=== PATIENT | male | born 1965 | race American Indian/Alaskan Native ===

== ENCOUNTER 2019-01-27 03:38 | Emergency (ER) | payer OTHER ==
[2019-01-27 03:52] VITALS: BP 108/72
[2019-01-27] MEDS ORDERED: IBUPROFEN 600 MG TAB PO ONE (04:49)
[2019-01-27] MEDS ORDERED: ACETAMINOPHEN 325 MG TAB PO ONE (04:50)
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
== END 2019-01-27 05:50 | disposition home or self-care (01) ==
LOC: ED 03:38
DX: M62.838 Other muscle spasm (principal); Z87.891 Personal history of nicotine dependence; V49.49XA Driver injured in collision with other motor vehicles in traffic accident, initial encounter; Y93.89 Activity, other specified; Y92.410 Unspecified street and highway as the place of occurrence of the external cause; Y99.8 Other external cause status
CPT/HCPCS: 72040

== ENCOUNTER 2020-10-12 08:09 | Inpatient (IN) | payer MEDICARE, OTHER ==
--- NOTE | 2020-10-12 08:33 | Emergency Department Report ---
ED General Adult HPI - General Chief complaint: Pain General Stated complaint: Having neck pain, and arm weakness PUI?: No Time Seen by Provider: 10/12/20 08:20 Source: patient, EMS (My EMS discussed), RN notes reviewed Mode of arrival: Stretcher Limitations: Physical Limitation - History of Present Illness Initial comments: The patient is a 75-year-old gentleman. He is not known to myself previously. He has a history of hypertension. He is brought to the hospital by emergency medical services with a complaint of neck spasms, arm spasms, and arm weakness. There is no trauma. He denies headache, abdominal pain, vomiting, diarrhea, and dysuria. He states he is right-hand dominant. He states he lives at home. He reports that he is typically ambulatory without difficulty. He reports that he has been essentially bedbound since Wednesday. He has bilateral upper extremity weakness, spasming, and paracervical neck pain. The patient reports no IV drug use. The patient reports no bladder or bowel retention/incontinence. The patient reports he has basically been staying in bed since Wednesday, and can get himself to the bathroom with great difficulty, leaning up against the wall. No abdominal pain. No IV drug use. No bladder or bowel retention or incontinence, no saddle anesthesia. He has chronic paralumbar back pain. He does not really have any immediate thoracic back pain at this time. -: Gradual, days(s) Location: neck, left, right, upper extremity Consistency: constant Improves with: none Worsens with: none - Related Data Previous Rx's Medication Instructions Recorded Last Taken Type Cyclobenzaprine [Flexeril] 10 mg PO Q8H PRN #15 tablet 01/27/19 Unknown Rx Ibuprofen [Motrin] 600 mg PO Q8H PRN #24 tablet 01/27/19 Unknown Rx Allergies Allergy/AdvReac Type Severity Reaction Status Date / Time No Known Allergies Allergy Unverified 01/27/19 03:48 ED Review of Systems ROS: Stated complaint: BACK SPASMS Other details as noted in HPI Constitutional: other (Denies loss of taste and smell). denies: fever Eyes: denies: eye discharge ENT: denies: epistaxis Respiratory: denies: cough Cardiovascular: denies: chest pain Gastrointestinal: denies: abdominal pain Genitourinary: denies: dysuria Musculoskeletal: back pain, myalgia Neurological: weakness, numbness, abnormal gait ED Past Medical Hx - Social History Smoking Status: Former Smoker - Medications Home Medications: Home Medications Medication Instructions Recorded Confirmed Last Taken Type Cyclobenzaprine [Flexeril] 10 mg PO Q8H PRN #15 tablet 01/27/19 Unknown Rx Ibuprofen [Motrin] 600 mg PO Q8H PRN #24 tablet 01/27/19 Unknown Rx ED Physical Exam - General Limitations: Physical Limitation General appearance: alert, in no apparent distress, obese - Head Head exam: Present: atraumatic, normocephalic - Eye Eye exam: Present: normal appearance, EOMI. Absent: nystagmus - ENT ENT exam: Present: normal exam, normal orophraynx, mucous membranes moist, normal external ear exam - Neck Neck exam: Present: normal inspection. Absent: meningismus, lymphadenopathy, thyromegaly - Respiratory Respiratory exam: Present: normal lung sounds bilaterally. Absent: respiratory distress, wheezes, rales, rhonchi, stridor, decreased breath sounds - Cardiovascular Cardiovascular Exam: Present: regular rate, normal rhythm, normal heart sounds. Absent: bradycardia, tachycardia, irregular rhythm, systolic murmur, diastolic murmur, rubs, gallop - GI/Abdominal GI/Abdominal exam: Present: soft. Absent: distended, tenderness, guarding, rebound, rigid, pulsatile mass - Rectal Rectal exam: Present: normal inspection, decreased rectal tone, other (Chaperoned by nurse Renetta Ernandez). Absent: heme (-) stool, heme (+) stool - Extremities Exam Extremities exam: Present: normal inspection, other (2+ pulses noted in the bilateral upper and lower extremities. There is no palpable cord. negative Homans sign. Muscular compartments are soft. The pelvis is stable.). Absent: tenderness, calf tenderness - Back Exam Back exam: Present: normal inspection. Absent: tenderness, CVA tenderness (R), CVA tenderness (L), paraspinal tenderness - Neurological Exam Neurological exam: Present: alert, motor sensory deficit (There is no facial droop. The tongue is midline. Extraocular movements are intact bilaterally. There is 3 out of 5 strength in the bilateral upper extremities. There is 4 out of 5 strength in the bilateral lower extremities). Absent: reflexes normal (Decreased plantar reflexes bilaterally. Patient is hyperreflexic in the bilateral quadriceps, triceps, biceps, and brachioradialis.) - Psychiatric Psychiatric exam: Present: anxious - Skin Skin exam: Present: warm, dry, intact, normal color. Absent: rash ED Course Vital Signs 10/12/20 10/12/20 10/12/20 09:03 09:16 09:25 Temperature 98.8 F Pulse Rate 86 86 Respiratory 29 H 25 H Rate Blood Pressure 151/76 Blood Pressure 151/76 [Left] O2 Sat by Pulse 93 98 97 Oximetry 10/12/20 10/12/20 10/12/20 09:30 09:52 10:00 Temperature Pulse Rate 84 97 H 83 Respiratory 23 20 25 H Rate Blood Pressure 151/76 151/76 151/76 Blood Pressure [Left] O2 Sat by Pulse 97 Oximetry 10/12/20 10/12/20 10/12/20 10:06 10:16 10:30 Temperature Pulse Rate 81 73 Respiratory 18 20 21 Rate Blood Pressure 151/76 Blood Pressure [Left] O2 Sat by Pulse Oximetry 10/12/20 10/12/20 10/12/20 11:00 12:18 12:28 Temperature Pulse Rate Respiratory 20 18 Rate Blood Pressure Blood Pressure [Left] O2 Sat by Pulse 95 Oximetry 10/12/20 10/12/20 10/12/20 12:30 12:46 13:00 Temperature Pulse Rate 77 73 78 Respiratory 21 19 17 Rate Blood Pressure 162/71 162/71 147/81 Blood Pressure [Left] O2 Sat by Pulse 91 97 98 Oximetry 10/12/20 10/12/20 10/12/20 13:16 13:30 13:46 Temperature Pulse Rate 77 82 78 Respiratory 20 24 20 Rate Blood Pressure 147/81 147/81 147/81 Blood Pressure [Left] O2 Sat by Pulse 94 98 97 Oximetry 10/12/20 10/12/20 10/12/20 13:56 14:32 14:46 Temperature Pulse Rate 99 H Respiratory 18 18 Rate Blood Pressure 147/81 143/84 Blood Pressure [Left] O2 Sat by Pulse 96 92 93 Oximetry 10/12/20 15:00 Temperature Pulse Rate 81 Respiratory 21 Rate Blood Pressure 147/81 Blood Pressure [Left] O2 Sat by Pulse 95 Oximetry - Reevaluation(s) Reevaluation #1: 10/12/20 09:40 Differential diagnosis, including but not limited to: Stroke, cervical cord lesion, myelopathy Assessment and plan: 75-year-old gentleman, with a complaint of neck pain, and arm weakness without fever, with lax rectal tone, hyperreflexia, and mute plantar reflexes. Have emergently requested [place] cervical collar, and spinal immobilization. There is no history of trauma. Have requested emergent CT scan of the brain, CT and L-spine. Have had an emergent neurology consultation, with Dr. Sobeida Coyne. She has examined this patient. She agrees with the aforementioned, and also recommends emergent MRI brain, and C-spine, with and without contrast. We will hold aspirin at this time, and hold steroids at this time. Reassess after MRIs have been resulted. Please note there was a delay in acquisition of MRI, as the sand technician is risk control field representative. It required multiple phone calls, with multiple individuals, to get the sand technician to come in, as I called her up, and she did not answer. In addition, the filling operator called this individual up, and did not answer. This was escalated to Kadeem, dye house supervisor, who in turn escalated to Mr. Tristen Bear, director utilization management. In addition, I contacted our director of physician services, Mr. Rory Mercado, who is also escalated this appropriately. At the moment, awaiting acquisition of CT scan, and an MRI. 10/12/20 11:08 CT scan brain reviewed and appreciated. CT scan cervical spine demonstrates a lytic lesion at C3. CT T and L-spine negative for acute findings. Patient is now an MRI. Contacted neurosurgeon on-call, Dr. Elizondo. Have discussed the patient's history, physical, laboratory studies, imaging studies, and overall clinical impression. He advises that the neurosurgery group can follow in consultation. Advises that emergency radiation therapy not necessary at this time. Recommends Decadron, 4 mg, every 6 hours, every hour neuro checks, triaged to the ICU. Also request additional MRI T and L-spine. Is in agreement with [place] collar. Neurosurgery will follow in consultation. Lung mass and probable malignancy are reviewed and appreciated. Defer to inpatient team to further evaluate and manage. Awaiting callback from critical care physician to arrange placement to the intensive care unit. 10/12/20 11:[address] angiogram head, CT angiogram neck. We will obtain this, and to facilitate and assist with patient's metastatic work-up, we will obtain CT scan of the chest, abdomen, pelvis with IV contrast. Contacted and discussed with critical care physician on-call, Dr. Mane Have discussed the patient's history, physical, laboratory studies, imaging studies, and overall clinical impression. He is in agreement with the plan of care. He will place into the intensive care unit and follow along. We will discussed with hospital physician to arrange admission. 10/12/20 11:16 10/12/20 12:00 Dr. Monahan to admit patient to the medical service. ED Medical Decision Making - Lab Data Result diagrams: 10/12/20 08:37 10/12/20 08:37 Vital Signs 10/12/20 09:25 Temperature 98.8 F Pulse Rate 86 Respiratory 25 H Rate Blood Pressure 151/76 [Left] O2 Sat by Pulse 97 Oximetry Lab Results 10/12/20 10/12/20 10/12/20 Range/Units 08:37 08:37 08:37 WBC 9.2 (4.5-11.0) K/mm3 RBC 4.74 (3.65-5.03) M/mm3 Hgb 14.2 (11.8-15.2) gm/dl Hct 41.1 (35.5-45.6) % MCV 87 (84-94) fl MCH 30 (28-32) pg MCHC 35 H (32-34) % RDW 14.5 (13.2-15.2) % Plt Count 254 (140-440) K/mm3 Lymph % (Auto) 13.0 L (13.4-35.0) % [place] % (Auto) 6.3 (0.0-7.3) % Eos % (Auto) 0.8 (0.0-4.3) % Baso % (Auto) 0.8 (0.0-1.8) % Lymph # (Auto) 1.2 (1.2-5.4) K/mm3 [place] # (Auto) 0.6 (0.0-0.8) K/mm3 Eos # (Auto) 0.1 (0.0-0.4) K/mm3 Baso # (Auto) 0.1 (0.0-0.1) K/mm3 Seg Neutrophils % 79.1 H (40.0-70.0) % Seg Neutrophils # 7.3 (1.8-7.7) K/mm3 PT 13.6 (12.2-14.9) Sec. INR 0.98 (0.87-1.13) APTT 26.2 (24.2-36.6) Sec. Sodium 138 (137-145) mmol/L Potassium 3.7 (3.6-5.0) mmol/L Chloride 102.1 (98-107) mmol/L Carbon Dioxide 21 L (22-30) mmol/L Anion Gap 19 mmol/L BUN 19 (9-20) mg/dL Creatinine 0.6 L (0.8-1.3) mg/dL Estimated GFR > 60 ml/min BUN/Creatinine Ratio 32 % Glucose 105 H (75-100) mg/dL Calcium 10.1 (8.4-10.2) mg/dL Magnesium 2.00 (1.7-2.3) mg/dL Total Creatine Kinase 192 H (55-170) units/L - EKG Data -: EKG Interpreted by In EKG shows normal: sinus rhythm Rate: normal - EKG Data 10/12/20 11:59 Sinus rhythm, 81 bpm. Left axis deviation, normal P wave axis, left ventricular hypertrophy, QTC, left anterior fascicular block. This EKG is not a STEMI - Radiology Data Radiology results: report reviewed, image reviewed CT cervical spine wo con INDICATION: neck pain arm weakness. TECHNIQUE: Axial CT images of the cervical spine were obtained. Sagittal and coronal reformatted images were produced. All CT scans at this location are performed using CT dose reduction for ALARA by means of automated exposure control. COMPARISON: None available. FINDINGS: ALIGNMENT: Normal alignment. VERTEBRAE: Lytic lesion involving the C3 vertebral body with near complete destruction of the posterior elements. The lesion also extends into the right inferior C2 articular pillar. SPONDYLOSIS: Multilevel mild spondylosis. SOFT TISSUES: No significant soft tissue abnormality. ADDITIONAL FINDINGS: Right middle lung zone 3 cm mass seen on manager night imaging. Linear parenchymal opacities are seen within the apical segments lungs mild paraseptal emphysema. I MPRESSION: 1. There is a lytic lesion involving the C3 vertebral body, posterior elements, and right C2 articulating process which most likely represents a metastasis. On manager night imaging, there is a 3 cm right middle lung zone lung mass concerning for primary lung cancer. Recommend CT of the chest with contrast for further evaluation. Signer Name: Abhijit Cuba MD Signed: 10/12/2020 9:16 AM Workstation Name: [id number] CT head/brain wo con INDICATION: arm weakness b/l. TECHNIQUE: Routine CT head. All CT scans at this location are performed using CT dose reduction for ALARA by means of automated exposure control. COMPARISON: None. FINDINGS: Intracranial: Small encephalomalacia in the right marinelli radiata from remote infarction. Corely-white matter differentiation is maintained. No intracranial hemorrhage. No extra axial collection. No hydrocephalus. No herniation. Sinuses: Paranasal sinuses and mastoid air cells are essentially clear. Orbits: Globes are intact. Calvarium: No acute fracture. IMPRESSION: 1. No acute intracranial abnormality. Signer Name: Abhijit Cuba MD Signed: 10/12/2020 9:01 AM Workstation Name: [id number] CT thoracic spine wo con, CT lumbar spine wo con INDICATION / CLINICAL INFORMATION: arm weakness b/l. TECHNIQUE: Axial, coronal and sagittal images All CT scans at this location are performed using CT dose reduction for ALARA by means of automated exposure control. COMPARISON: None available. FINDINGS: CT thoracic spine The thoracic spine alignment appears normal. Facets appear well aligned throughout. There are endplate changes at several levels throughout spin e. There is a mass within the right lung measuring at least 3.7 cm. No subluxation is identified. Mild curvature the spine is noted. CT lumbar spine: Alignment appears normal. No subluxation is seen. Mild endplate changes with disc osteophytes at several levels. Sacrum and sacroiliac joints appear normal. No loss of vertebral body height. IMPRESSION: 1. Large mass within the right lung concerning for carcinoma. Further workup for malignancy is recommended. 2. No acute fracture in the thorac ic spine or lumbar spine. Degenerative changes seen throughout. If there is concern for radiculopathy and weakness and MRI would be better for evaluation. Signer Name: Chito Keller MD Signed: 10/12/2020 9:40 AM Workstation Name: [id number] MR brain wo con INDICATION / CLINICAL INFORMATION: arm weakness nmbness. TECHNIQUE: Multiplanar, multisequence MR images of the brain were obtained. C OMPARISON: None available. FINDINGS: INTRACRANIAL: Small area of encephalomalacia from remote right marinelli radiata infarction. Wallerian degeneration extending into the right peggy cerebri. No restricted diffusion. No hemorrhage. Ventricular caliber is normal. No extra-axial collection. No mass. No herniation. Major intracranial vascular flow voids are preserved. Posterior incidental subgaleal lipoma. ORBITS: No significant abnormality of visualized orbits. SINUSES / MASTOIDS: No significant abnormality of visualized sinuses and mastoid air cells. ADDITIONAL FINDINGS: None. IMPRESSION: 1. No acute intracranial abnormality. 2. Remote right marinelli radiata infarction as above. Signer Name: Abhijit Cuba MD Signed: 10/12/2020 1:45 PM Workstation Name: [id number] CT CHEST WITH CONTRAST INDICATION / CLINICAL INFORMATION: neck pain, cervical lesion. TECHNIQUE: Axial CT images were obtained through the chest after IV contrast. All CT scans at this location are performed using CT dose reduction for ALARA by means of automated exposure control. COMPARISON: None available. FINDINGS: There is a right upper lung mass measuring 4.0 x 2.8 cm. Mild atelectasis in the dependent portions of the lungs. There are prominent right hilar and paratracheal nodes. A right hilar node measures 1.8 cm. Heart appears normal. Visualized portions of the upper abdomen appear normal. Small axillary n odes. No acute bone findings are seen. IMPRESSION: 1. Large mass in the right upper lung with associated right hilar and paratracheal adenopathy. Findings concerning for malignancy/adenocarcinoma with metastatic farrah spread. Biopsy and follow-up recommended. Signer Name: Chito Keller MD Signed: 10/12/2020 1:44 PM Workstation Name: [email or web address] MR cervical spine wo con INDICATION / CLINICAL INFORMATION: arm weakness nmbness. TECHNIQUE: Multisequence, multiplanar images of the cervical spine were obtained. COMPARISON: None available. FINDINGS: Please note that the patient refused contrast because the patient was in too much pain and could not tolerate anymore.. ALIGNMENT: Normal alignment. VERTEBRAE:There is a mass seen involving the C3 vertebral body which is extending into and expanding the posterior elements. The mass demonstrates cortical breakthrough and extends into the right C2 articulating pillar. There is epidural extension completely effacing the CSF space resulting in severe spinal canal stenosis with cord compression. Severe foraminal narrowing is also present. Short segment of abnormal cord signal is present at this level which could be related to edema or myelomalacia. SPINAL CORD: See above. SPONDYLOSIS: Spondylosis with foraminal narrowing at C4-C5, C5-C6, and C6-C7. There is a left subarticular C7-T1 protrusion resulting in left moderate to severe left foraminal narrowing, can correlate for left C8 nerve root symptoms. PARASPINAL SOFT TISSUES: No significant abnormality. ADDITIONAL FINDINGS: None. IMPRESSION: 1. C3 mass involving the posterior elements demonstrates cortical breakthrough with severe spinal canal stenosis and cord compression. Small short segment of abnormal cord signal could be related to edema or myelomalacia. There is also involvement of the right C2 articulating pillar. This is most likely related to metastasis given the known right upper lobe mass. CERVICAL GRADING DEFINITIONS FOR THE PURPOSES OF THIS REPORT: Cervical canal stenosis: No stenosis: No significant attenuation of the CSF spaces Mild stenosis: Attenuation or effacement of the ventral CSF Moderate stenosis: Effacement of both the ventral and dorsal CSF, cord flattening, but some CSF remaining Severe stenosis: Effacement of all CSF, cord compression Cervical neural foraminal stenosis (Taniya et al. Portuguese J Radiol. 2015 Jan-Feb;16(6):1294- 302): No stenosis: No attenuation of the fat in the foramen Mild stenosis: Narrowest point of the foramen is larger than the extraforaminal nerve Moderate stenosis: Narrowest point of the foramen remains greater than 50% of the caliber of the extraforaminal nerve Severe stenosis: Narrowest point of the foramen is less than 50% of the caliber of the extraforaminal nerve Signer Name: Abhijit Cuba MD Signed: 10/12/2020 2:08 PM Workstation Name: [id number] CT angio head HISTORY: Cervical spine myelopathy, metastatic disease COMPARISON: None. TECHNIQUE: CTA of the head is performed after IV contrast. 3- D/MIP reformats were postprocessed. Percentage stenosis is determined by direct quantitative measurements of diseased internal carotid artery diameter compared with normal distal internal carotid artery reference segments or by criteria similar to NASCET where applicable. All CT scans at this location are performed using CT dose reduction for ALARA by means of automated exposure control. FINDINGS: CTA HEAD: Intracranial internal carotid arteries: No occlusion or significant stenosis. Anterior cerebral arteries: No occlusion or significant stenosis. Middle cerebral arteries: No occlusion or significant stenosis. Intracranial vertebral arteries: No occlusion or significant stenosis. Basilar artery: No occlusion or significant stenosis. Posterior cerebral arteries: No occlusion or significant stenosis. No aneurysm. Additional findings: Remote right marinelli radiata infarction. IMPRESSION: 1. CTA HEAD: No occlusion or significant stenosis of the major i ntracranial vasculature. Signer Name: Abhijit Cuba MD Signed: 10/12/2020 1:59 PM Workstation Name: [id number] CT ABDOMEN AND PELVIS WITH CONTRAST HISTORY: neck pain, cervical lesion ABD PAIN. COMPARISON: None. TECHNIQUE: CT images of the abdomen and pelvis were obtained following administration of intravenous contrast. All CT scans at this location are performed using CT dose reduction for ALARA by means of automated exposure control. CONTRAST: 100 ml of intravenous contrast administered. FINDINGS: Abdomen/pelvis: The liver, spleen, adrenal glands, pancreas, gallbladder appear normal. Portal vein is patent. Bilateral kidneys appear normal. Small right renal cyst. Urinary bladder is distended. No dominant adenopathy. Bowel loops appear normal. No bowel obstruction is seen. Degener ative changes seen throughout spine IMPRESSION: No acute findings are seen in the abdomen or pelvis. Signer Name: Chito Keller MD Signed: 10/12/2020 1:53 PM Workstation Name: [id number] HISTORY: neck pain, cervical lesion OMNIPAQUE 350 100ML COMPARISON: None. TECHNIQUE: Routine CTA of the neck is performed. 3-D/MIP reformats were postprocessed. Percentage stenosis is determined by direct quantitative measurements of diseased internal carotid artery diameter compared with normal distal internal carotid artery reference segments or by criteria similar to NASCET where applicable. All CT scans at this location are performed using CT dose reduction for ALARA by means of automated exposure control. FINDINGS: Aortic arch: No significant abnormality. Cervical vertebral arteries: The mass breaks through the cortex at the C3 level and abuts the bilateral vertebral arteries in the transverse foramen. This results in moderate stenosis from external compression on the left vert ebral artery. The right vertebral artery is diminutive but there is no occlusion or significant stenosis. Common Carotid arteries: No occlusion or hemodynamically significant stenosis. Internal carotid arteries: No occlusion or hemodynamically significant stenosis. Additional findings: 3.6 cm inc ompletely visualized right upper lobe mass. There is a mass seen involving the C3 vertebral bodies which is expanding the posterior elements. Cortical breakthrough with epidural extension and moderate to severe spinal canal stenosis. There is also involvement of the right C2 articular pillar as prev iously described on CT cervical spine. IMPRESSION: 1. Lesion involving the C3 vertebrae with cortical breakthrough and epidural extension resulting in moderate to severe spinal canal stenosis. The mass abuts the bilateral vertebral arteries in the transverse foramen at the C3 resulting in moderate stenosis of the left vertebral artery. The right vertebral artery is diminutive but there is no occlusion or significant stenosis. 2. Right upper lobe mass. Recommend CT chest with contrast. Signer Name: Abhiijt Cuba MD Signed: 10/12/2020 1:[address] CHEST WITH CONTRAST INDICATION / CLINICAL INFORMATION: neck pain, cervical lesion. TECHNIQUE: Axial CT images were obtained through the chest after IV contrast. All CT scans at this location are performed using CT dose reduction for ALARA by means of automated exposure control. COMPARISON: None available. FINDINGS: There is a right upper lung mass measuring 4.0 x 2.8 cm. Mild atelectasis in the dependent portions of the lungs. There are prominent right hilar and paratracheal nodes. A right hilar node measures 1.8 cm. Heart appears normal. Visualized portions of the upper abdomen appear normal. Small axillary nodes. No acute bone findings are seen. IMPRESSION: 1. Large mass in the right upper lung with associated right hilar and paratracheal adenopathy. Findings concerning for malignancy/adenocarcinoma with metastatic farrah spread. Biopsy and follow-up recommended. Signer Name: Chito Keller MD Signed: 10/12/2020 1:44 PM Critical Care Time: Yes Critical care time in (mins) excluding proc time.: 65 Critical care attestation.: If time is entered above; I have spent that time in minutes in the direct care of this critically ill patient, excluding procedure time. ED Disposition Clinical Impression: Mass of right lung, Lesion of bone of cervical spine, Upper extremity weakness, Cervical pain (neck) Disposition: OP ADMIT IP TO THIS HOSP Is pt being admited?: Yes Does the pt Need Aspirin: No Condition: Critical
[2020-10-12] MEDS ORDERED: LACTATED RINGERS 1,000 ML IV ONE (08:34)
[2020-10-12 08:52] LABS: Basophils # (Auto) 0.1 K/mm3 (0.0-0.1); Basophils % (Auto) 0.8 % (0.0-1.8); Eosinophils # (Auto) 0.1 K/mm3 (0.0-0.4); Eosinophils % (Auto) 0.8 % (0.0-4.3); Hematocrit 41.1 % (35.5-45.6); Hemoglobin 14.2 gm/dl (11.8-15.2); Lymphocytes # (Auto) 1.2 K/mm3 (1.2-5.4); Mean Corpuscular HGB Conc 35 % (32-34); Mean Corpuscular Volume 87 fl (84-94); Monocytes # (Auto) 0.6 K/mm3 (0.0-0.8); Monocytes % (Auto) 6.3 % (0.0-7.3); Platelet Count 254 K/mm3 (140-440); Red Blood Count 4.74 M/mm3 (3.65-5.03); Red Cell Distribution Width 14.5 % (13.2-15.2)
[2020-10-12 09:14] LABS: Blood Urea Nitrogen 19 mg/dL (9-20); Calcium 10.1 mg/dL (8.4-10.2); Hemolysis Index 3
[2020-10-12 09:15] LABS: BUN/Creatinine Ratio 32
[2020-10-12 09:25] LABS: INR 0.98 (0.87-1.13); Partial Thromboplastin Time 26.2 Sec. (24.2-36.6)
--- NOTE | 2020-10-12 10:05 | Cat Scan Report ---
CT head/brain wo con INDICATION: arm weakness b/l. TECHNIQUE: Routine CT head. All CT scans at this location are performed using CT dose reduction for A EMANI by means of automated exposure control. COMPARISON: None. FINDINGS: Intracranial: Small encephalomalacia in the right marinelli radiata from remote infarction. Corley-white m atter differentiation is maintained. No intracranial hemorrhage. No extra axial collection. No hydroc ephalus. No herniation. Sinuses: Paranasal sinuses and mastoid air cells are essentially clear. Orbits: Globes are intact. Calvarium: No acute fracture. IMPRESSION: 1. No acute intracranial abnormality. Signer Name: Abhijit Cuba MD Signed: 10/12/2020 10:01 AM Workstation Name: [id number]
[2020-10-12] MEDS: fentaNYL 100 MCG/2 ML INJ IV ONE ×4 (10:06→12:18)
--- NOTE | 2020-10-12 10:20 | Cat Scan Report ---
CT cervical spine wo con INDICATION: neck pain arm weakness. TECHNIQUE: Axial CT images of the cervical spine were obtained. Sagittal and coronal reformatted images were pro duced. All CT scans at this location are performed using CT dose reduction for ALARA by means of auto mated exposure control. COMPARISON: None available. FINDINGS: ALIGNMENT: Normal alignment. VERTEBRAE: Lytic lesion involving the C3 vertebral body with near complete destruction of the posteri or elements. The lesion also extends into the right inferior C2 articular pillar. SPONDYLOSIS: Multilevel mild spondylosis. SOFT TISSUES: No significant soft tissue abnormality. ADDITIONAL FINDINGS: Right middle lung zone 3 cm mass seen on glass fitter imaging. Linear parenchymal opaci ties are seen within the apical segments lungs mild paraseptal emphysema. IMPRESSION: 1. There is a lytic lesion involving the C3 vertebral body, posterior elements, and right C2 articula ting process which most likely represents a metastasis. On glass fitter imaging, there is a 3 cm right middl e lung zone lung mass concerning for primary lung cancer. Recommend CT of the chest with contrast for further evaluation. Signer Name: Abhijit Cuba MD Signed: 10/12/2020 10:16 AM Workstation Name: [id number]
--- NOTE | 2020-10-12 10:28 | Emergency Department Report ---
Blank Doc - Documentation Documentation: [facility] Consult Note # Demographics Consult Type: General Neurology Patient Location: Emergency Room First Name: Yunier Last Name: Christine Date of : 1965 Age: 55 Gender: Male Time of Initial Page (Eastern Time): 10/12/2020, 08:49 Time of Return Call (Eastern Time): 10/12/2020, 08:49 # HPI History: 55yo M presents with neck pain and tingling. has hyperreflexia, poor rectal tone. has had difficulty ambulating since morning. He is feeling bilateral hands feeling numbness. his left leg started and then his right leg first, then feeling arm weakness. he reports neck pain for many months. # Exam Mental Status: awake alert and oriented x 3 follows commands Language: normal speech Cranial Nerves: normal Motor: normal strength drift in all 4 extrmities Sensory: reduced sensation in right arm compared to the left, LE probably symmetric Cerebellar: ataxic in all 4 extremities # PMH-FH-SH Past Medical History: obese # Assessment Impression: likely cervical myelopathy. peripehral causes less likely but possible. C-spine or above should be the localization for central causes given arm involvement # Plan Imaging: (urgency: STAT): MRI Brain with AND without contrast MRI C spine Therapy/Evaluation: NPO until swallow evaluation PT/OT evaluation speech/swallow consultation Other: I have discussed my recommendations with the referring provider Additional Recommendations: if MRIs unrevealing in person neuro eval and EMG would be recommended # Logistics Telemedicine: Interactive 2 way audio and visual telecommunication technology was utilized during this visit
--- NOTE | 2020-10-12 10:45 | Cat Scan Report ---
CT thoracic spine wo con, CT lumbar spine wo con INDICATION / CLINICAL INFORMATION: arm weakness b/l. TECHNIQUE: Axial, coronal and sagittal images All CT scans at this location are performed using CT dose reductio n for ALARA by means of automated exposure control. COMPARISON: None available. FINDINGS: CT thoracic spine The thoracic spine alignment appears normal. Facets appear well aligned throughout. There are endplat e changes at several levels throughout spine. There is a mass within the right lung measuring at leas t 3.7 cm. No subluxation is identified. Mild curvature the spine is noted. CT lumbar spine: Alignment appears normal. No subluxation is seen. Mild endplate changes with disc osteophytes at ernie ral levels. Sacrum and sacroiliac joints appear normal. No loss of vertebral body height. IMPRESSION: 1. Large mass within the right lung concerning for carcinoma. Further workup for malignancy is recomm ended. 2. No acute fracture in the thoracic spine or lumbar spine. Degenerative changes seen throughout. If there is concern for radiculopathy and weakness and MRI would be better for evaluation. Signer Name: Chito Keller MD Signed: 10/12/2020 10:40 AM Workstation Name: [id number]
[2020-10-12] MEDS ORDERED: dexAMETHasone 4 MG/ML VIAL IV ONE (10:49)
[2020-10-12] MEDS ORDERED: MORPHINE 4 MG/1 ML INJ IV ONE (10:51)
[2020-10-12] MEDS ORDERED: LACTATED RINGERS 500 ML IV ONE (11:15)
--- NOTE | 2020-10-12 12:35 | History and Physical Report ---
History of Present Illness Chief complaint: My back hurts and I cannot walk History of present illness: 75 YO Male with HTN presents to ED for evaluation. Pt reports " I am hurting and I cannot walk". Patient states that he has experienced generalized weakness over the past 2 weeks with acutely worsening symptoms over the past 3 days. Patient reports he has experienced bilateral upper extremity muscle spasms, neck pain. Patient states that he is unable to hold objects in either hand and is unable to care for himself. Patient is currently bedbound, nonambulatory. Patient requires 6/6 assistance with activities of daily living and has a palliative performance score 30%. Patient underwent CT scan of the chest and was found to have a right lung lesion suspected to be a right lung malignancy With suspected metastatic disease to the spine complicated by cord compression syndrome. Total neurology team consulted, neurosurgery consulted, critical care team consulted in the emergency department. Patient admitted to ICU due to increased risk of worsening symptoms. Patient treated with IV steroid therapy, supportive care. Patient denies fever, chills, chest pain, palpitation, productive cough, skin rash, recent ill contacts, known exposure to COVID-19. No prior admission for review. All medication listed at time of admission has been reconciled. Advanced care planning conducted in ED. Past History Past Medical History: hypertension, other (See HPI) Past Surgical History: No surgical history, Other (Reviewed) Social history: , lives with family. denies: smoking, alcohol abuse, prescription drug abuse Family history: hypertension Medications and Allergies Allergies Allergy/AdvReac Type Severity Reaction Status Date / Time No Known Allergies Allergy Unverified 01/27/19 03:48 Home Medications Medication Instructions Recorded Confirmed Last Taken Type Cyclobenzaprine [Flexeril] 10 mg PO Q8H PRN #15 tablet 01/27/19 Unknown Rx Ibuprofen [Motrin] 600 mg PO Q8H PRN #24 tablet 01/27/19 Unknown Rx Review of Systems Constitutional: weakness, malaise, no weight gain, no fever, no chills Ears, nose, mouth and throat: no ear pain, no ear discharge, no decreased hearing, no nose pain, no nasal discharge, no sinus pressure Cardiovascular: no chest pain, no orthopnea, no lightheadedness Respiratory: no cough, no excessive sputum, no hemoptysis, no shortness of breath Gastrointestinal: no abdominal pain, no nausea, no diarrhea, no constipation, no hematemesis Genitourinary Male: no hematuria, no flank pain, no discharge, no urinary hesitancy, no nocturia Rectal: no pain, no incontinence, no bleeding Musculoskeletal: shooting arm pain, arm numbness/tingling, low back pain, shooting leg pain, leg numbness/tingling, muscle weakness, muscle cramps, gait dysfunction, no frequent falls, no fractures Integumentary: no rash, no pruritis, no redness, no sores, no wounds Neurological: no transient paralysis, no paralysis, no weakness, no numbness, no tingling, no syncope Psychiatric: no anxiety, no memory loss, no sleep disturbances, no insomnia, no hypersomnia, no change in appetite Endocrine: no cold intolerance, no polyphagia, no excessive thirst, no nocturia Hematologic/Lymphatic: no easy bruising, no easy bleeding, no lymphadenopathy, no lymphedema Allergic/Immunologic: no urticaria, no allergic rhinitis, no anaphylaxis, no angioedema Exam - Constitutional Vitals: Temp Pulse Resp BP Pulse Ox 98.8 F 86 18 151/76 97 10/12/20 09:25 10/12/20 09:25 10/12/20 12:18 10/12/20 09:25 10/12/20 09:25 General appearance: Present: mild distress - EENT Eyes: Present: PERRL ENT: hearing intact, clear oral mucosa - Neck Neck: Present: supple, normal ROM - Respiratory Respiratory effort: normal Respiratory: bilateral: CTA - Cardiovascular Heart Sounds: Present: S1 & S2. Absent: rub, click - Extremities Extremities: pulses symmetrical, No edema Peripheral Pulses: within normal limits - Abdominal General gastrointestinal: Present: soft, non-tender, non-distended, normal bowel sounds Male genitourinary: Present: normal - Rectal Rectal Exam: decreased tone - Integumentary Integumentary: Present: clear, warm, dry - Musculoskeletal Musculoskeletal: generalized weakness - Psychiatric Psychiatric: appropriate mood/affect, intact judgment & insight, agitated - Neurologic Neurologic: CNII-XII intact, moves all extremities, no gait normal Results - Labs CBC & Chem 7: 10/12/20 08:37 10/12/20 08:37 Labs: Abnormal lab results 10/12/20 10/12/20 Range/Units 08:37 08:37 MCHC 35 H (32-34) % Lymph % (Auto) 13.0 L (13.4-35.0) % Seg Neutrophils % 79.1 H (40.0-70.0) % Carbon Dioxide 21 L (22-30) mmol/L Creatinine 0.6 L (0.8-1.3) mg/dL Glucose 105 H (75-100) mg/dL Total Creatine Kinase 192 H (55-170) units/L Assessment and Plan - Patient Problems (1) Cord compression syndrome Current Visit: Yes Status: Acute Plan to address problem: Patient is to ICU, telemetry neurology consulted, neurosurgery team consulted. Patient treated with IV steroid therapy, supportive care, neuro check, seizure precautions, fall precautions, pain control. (2) Lung cancer metastatic to bone Current Visit: Yes Status: Acute Plan to address problem: Supportive care, outpatient oncology follow-up, (3) Advance care planning Current Visit: Yes Status: Acute Plan to address problem: Disease education conducted, care plan discussed, diagnosis discussed, prognosis discussed. Patient is full code at this time. Patient and patient's son acknowledged understanding and agreement with care plan. As well as patient poor prognosis. +30 minutes. Patient is a candidate for hospice and palliative care due to the present the aforementioned diagnosis. We'll treat current symptoms with pain control and readdress after formulation of long-term care plan. (4) DVT prophylaxis Current Visit: Yes Status: Acute Plan to address problem: SCD to bilateral lower extremities while in bed.
[2020-10-12] MEDS ORDERED: ALBUTEROL 2.5 MG/3 ML NEBU IH PRN (13:18)
[2020-10-12] MEDS ORDERED: ACETAMINOPHEN 325 MG TAB PO PRN (13:18)
[2020-10-12] MEDS ORDERED: SODIUM CHLORIDE 0.9% 1000 ML 1,000 ML IV SCH (13:30)
[2020-10-12] MEDS: methylPREDNISolone Sod Succinate 40 MG/1 ML INJ IV SCH ×2 (14:30→21:15)
--- NOTE | 2020-10-12 14:49 | Cat Scan Report ---
CT CHEST WITH CONTRAST INDICATION / CLINICAL INFORMATION: neck pain, cervical lesion. TECHNIQUE: Axial CT images were obtained through the chest after IV contrast. All CT scans at this location are performed using CT dose reduction for ALARA by means of automated exposure control. COMPARISON: None available. FINDINGS: There is a right upper lung mass measuring 4.0 x 2.8 cm. Mild atelectasis in the dependent portions o f the lungs. There are prominent right hilar and paratracheal nodes. A right hilar node measures 1.8 cm. Heart appears normal. Visualized portions of the upper abdomen appear normal. Small axillary node s. No acute bone findings are seen. IMPRESSION: 1. Large mass in the right upper lung with associated right hilar and paratracheal adenopathy. Findin gs concerning for malignancy/adenocarcinoma with metastatic farrah spread. Biopsy and follow-up recomm ended. Signer Name: Chito Keller MD Signed: 10/12/2020 2:44 PM Workstation Name: [id number]
--- NOTE | 2020-10-12 14:50 | Magnetic Resonance Report ---
MR brain wo con INDICATION / CLINICAL INFORMATION: arm weakness nmbness. TECHNIQUE: Multiplanar, multisequence MR images of the brain were obtained. COMPARISON: None available. FINDINGS: INTRACRANIAL: Small area of encephalomalacia from remote right marinelli radiata infarction. Wallerian d egeneration extending into the right peggy cerebri. No restricted diffusion. No hemorrhage. Ventricula r caliber is normal. No extra-axial collection. No mass. No herniation. Major intracranial vascular flow voids are preserved. Posterior incidental subgaleal lipoma. ORBITS: No significant abnormality of visualized orbits. SINUSES / MASTOIDS: No significant abnormality of visualized sinuses and mastoid air cells. ADDITIONAL FINDINGS: None. IMPRESSION: 1. No acute intracranial abnormality. 2. Remote right marinelli radiata infarction as above. Signer Name: Abhijit Cuba MD Signed: 10/12/2020 2:45 PM Workstation Name: [id number]
--- NOTE | 2020-10-12 14:58 | Cat Scan Report ---
CT ABDOMEN AND PELVIS WITH CONTRAST HISTORY: neck pain, cervical lesion ABD PAIN. COMPARISON: None. TECHNIQUE: CT images of the abdomen and pelvis were obtained following administration of intravenous contrast. All CT scans at this location are performed using CT dose reduction for ALARA by means of automated exposure control. CONTRAST: 100 ml of intravenous contrast administered. FINDINGS: Abdomen/pelvis: The liver, spleen, adrenal glands, pancreas, gallbladder appear normal. Portal vein is patent. Bilateral kidneys appear normal. Small right renal cyst. Urinary bladder is distended. No dominant adenopathy. Bowel loops appear normal. No bowel obstruction is seen. Degenerative changes se en throughout spine IMPRESSION: No acute findings are seen in the abdomen or pelvis. Signer Name: Chito Keller MD Signed: 10/12/2020 2:53 PM Workstation Name: [id number]
--- NOTE | 2020-10-12 15:00 | Cat Scan Report ---
CT angio neck HISTORY: neck pain, cervical lesion OMNIPAQUE 350 100ML COMPARISON: None. TECHNIQUE: Routine CTA of the neck is performed. 3-D/MIP reformats were postprocessed. Percentage st enosis is determined by direct quantitative measurements of diseased internal carotid artery diameter compared with normal distal internal carotid artery reference segments or by criteria similar to NÉSTOR CET where applicable. All CT scans at this location are performed using CT dose reduction for ALARA b y means of automated exposure control. FINDINGS: Aortic arch: No significant abnormality. Cervical vertebral arteries: The mass breaks through the cortex at the C3 level and abuts the bilater al vertebral arteries in the transverse foramen. This results in moderate stenosis from external comp ression on the left vertebral artery. The right vertebral artery is diminutive but there is no occlus ion or significant stenosis. Common Carotid arteries: No occlusion or hemodynamically significant stenosis. Internal carotid arteries: No occlusion or hemodynamically significant stenosis. Additional findings: 3.6 cm incompletely visualized right upper lobe mass. There is a mass seen invol ving the C3 vertebral bodies which is expanding the posterior elements. Cortical breakthrough with ep idural extension and moderate to severe spinal canal stenosis. There is also involvement of the right C2 articular pillar as previously described on CT cervical spine. IMPRESSION: 1. Lesion involving the C3 vertebrae with cortical breakthrough and epidural extension resulting in m oderate to severe spinal canal stenosis. The mass abuts the bilateral vertebral arteries in the trans verse foramen at the C3 resulting in moderate stenosis of the left vertebral artery. The right verteb ral artery is diminutive but there is no occlusion or significant stenosis. 2. Right upper lobe mass. Recommend CT chest with contrast. Signer Name: Abhijit Cuba MD Signed: 10/12/2020 2:56 PM Workstation Name: [id number]
--- NOTE | 2020-10-12 15:04 | Cat Scan Report ---
CT angio head HISTORY: Cervical spine myelopathy, metastatic disease COMPARISON: None. TECHNIQUE: CTA of the head is performed after IV contrast. 3-D/MIP reformats were postprocessed. Per centage stenosis is determined by direct quantitative measurements of diseased internal carotid arter y diameter compared with normal distal internal carotid artery reference segments or by criteria ja lar to NASCET where applicable. All CT scans at this location are performed using CT dose reduction f or ALARA by means of automated exposure control. FINDINGS: CTA HEAD: Intracranial internal carotid arteries: No occlusion or significant stenosis. Anterior cerebral arteries: No occlusion or significant stenosis. Middle cerebral arteries: No occlusion or significant stenosis. Intracranial vertebral arteries: No occlusion or significant stenosis. Basilar artery: No occlusion or significant stenosis. Posterior cerebral arteries: No occlusion or significant stenosis. No aneurysm. Additional findings: Remote right marinelli radiata infarction. IMPRESSION: 1. CTA HEAD: No occlusion or significant stenosis of the major intracranial vasculature. Signer Name: Abhijit Cuba MD Signed: 10/12/2020 2:59 PM Workstation Name: [id number]
--- NOTE | 2020-10-12 15:12 | Magnetic Resonance Report ---
MR cervical spine wo con INDICATION / CLINICAL INFORMATION: arm weakness nmbness. TECHNIQUE: Multisequence, multiplanar images of the cervical spine were obtained. COMPARISON: None available. FINDINGS: Please note that the patient refused contrast because the patient was in too much pain and could not tolerate anymore.. ALIGNMENT: Normal alignment. VERTEBRAE:There is a mass seen involving the C3 vertebral body which is extending into and expanding the posterior elements. The mass demonstrates cortical breakthrough and extends into the right C2 art iculating pillar. There is epidural extension completely effacing the CSF space resulting in severe s kurtis canal stenosis with cord compression. Severe foraminal narrowing is also present. Short segment of abnormal cord signal is present at this level which could be related to edema or myelomalacia. SPINAL CORD: See above. SPONDYLOSIS: Spondylosis with foraminal narrowing at C4-C5, C5-C6, and C6-C7. There is a left subarti cular C7-T1 protrusion resulting in left moderate to severe left foraminal narrowing, can correlate f or left C8 nerve root symptoms. PARASPINAL SOFT TISSUES: No significant abnormality. ADDITIONAL FINDINGS: None. IMPRESSION: 1. C3 mass involving the posterior elements demonstrates cortical breakthrough with severe spinal can al stenosis and cord compression. Small short segment of abnormal cord signal could be related to abi ma or myelomalacia. There is also involvement of the right C2 articulating pillar. This is most likel y related to metastasis given the known right upper lobe mass. CERVICAL GRADING DEFINITIONS FOR THE PURPOSES OF THIS REPORT: Cervical canal stenosis: No stenosis: No significant attenuation of the CSF spaces Mild stenosis: Attenuation or effacement of the ventral CSF Moderate stenosis: Effacement of both the ventral and dorsal CSF, cord flattening, but so me CSF remaining Severe stenosis: Effacement of all CSF, cord compression Cervical neural foraminal stenosis (Taniya et al. Serbian J Radiol. 2015 Jan-Feb;16(6):1294-302): No stenosis: No attenuation of the fat in the foramen Mild stenosis: Narrowest point of the foramen is larger than the extraforaminal nerve Moderate stenosis: Narrowest point of the foramen remains greater than 50% of the caliber of the extraforaminal nerve Severe stenosis: Narrowest point of the foramen is less than 50% of the caliber of th e extraforaminal nerve Signer Name: Abhijit Cuba MD Signed: 10/12/2020 3:08 PM Workstation Name: [id number]
--- NOTE | 2020-10-12 15:50 | Consultation ---
History of Present Illness Consult date: 10/12/20 Requesting physician: AMALIA SANTACRUZ Reason for consult: other (MEtastatic Lung Cancer; Spinal Cord Compression syndrome) History of present illness: PULMONARY/CCM CONSULT NOTE (Full dictation # [id number]) Please see dictated notes for full details Past History Past Medical History: hypertension, other (See HPI) Past Surgical History: No surgical history, Other (Reviewed) Social history: , lives with family. denies: smoking, alcohol abuse, prescription drug abuse Family history: hypertension Medications and Allergies Allergies Allergy/AdvReac Type Severity Reaction Status Date / Time No Known Allergies Allergy Unverified 01/27/19 03:48 Home Medications Medication Instructions Recorded Confirmed Last Taken Type Losartan [Cozaar] 25 mg PO QDAY 10/12/20 10/12/20 Unknown History Meloxicam [Mobic] 15 mg PO QDAY 10/12/20 10/12/20 Unknown History Rosuvastatin Calcium 40 mg PO QHS 10/12/20 10/12/20 Unknown History Tizanidine HCl 1 tab PO QHS 10/12/20 10/12/20 Unknown History amLODIPine [Norvasc] 5 mg PO DAILY 10/12/20 10/12/20 Unknown History traZODone [Desyrel] 50 mg PO QHS 10/12/20 10/12/20 Unknown History Active Meds: Active Medications Acetaminophen (Acetaminophen 325 Mg Tab) 650 mg PO Q6H PRN PRN Reason: Pain MILD(1-3)/Fever >100.5/SAENZ Albuterol (Albuterol 2.5 Mg/3 Ml Nebu) 2.5 mg IH Q3HRT PRN PRN Reason: Shortness Of Breath Hydromorphone HCl (Hydromorphone 1 Mg/1 Ml Inj) 0.5 mg IV Q3H PRN PRN Reason: Pain , Severe (7-10) Sodium Chloride (Nacl 0.9% 1000 Ml) 1,000 mls @ 42 mls/hr IV DIRECT MIGUELINA Methylprednisolone Sodium Succinate (Methylprednisolone Sod Succinate 40 Mg/1 Ml Inj) 40 mg IV Q8HR MIGUELINA Last Admin: 10/12/20 14:30 Dose: 40 mg Documented by: Oxycodone/Acetaminophen (Oxycodone /Acetaminophen 5-325mg Tab) 1 tab PO Q6H PRN PRN Reason: Pain, Moderate (4-6) Sodium Chloride (Sodium Chloride 0.9% 10 Ml Flush Syringe) 10 ml IV BID MIGUELINA Sodium Chloride (Sodium Chloride 0.9% 10 Ml Flush Syringe) 10 ml IV PRN PRN PRN Reason: LINE FLUSH Physical Examination Vital signs: Vital Signs Pulse Ox 93 10/12/20 09:03 Results - Laboratory Findings CBC and BMP: 10/12/20 08:37 10/12/20 08:37 PT/INR, D-dimer PT 13.6 Sec. (12.2-14.9) 10/12/20 08:37 INR 0.98 (0.87-1.13) 10/12/20 08:37 Abnormal lab findings: Abnormal Labs 10/12/20 10/12/20 08:37 08:37 MCHC 35 H Lymph % (Auto) 13.0 L Seg Neutrophils % 79.1 H Carbon Dioxide 21 L Creatinine 0.6 L Glucose 105 H Total Creatine Kinase 192 H
[2020-10-12] MEDS: HYDROmorphone 1 MG/1 ML INJ IV PRN ×2 (16:44→20:50)
[2020-10-12] MEDS: hydrALAZINE 20 MG/1 ML INJ IV PRN (22:03)
--- NOTE | 2020-10-12 22:16 | Progress Note ---
Subjective Date of service: 10/12/20 Interval history: NSGY update: imaging studies reviewed. Lytic lesion involving the C3 vertebral body, posterior elements and unilateral C2 pars. Findings are concerning for metastatic disease. I recommend CT CAP with and without contrast for metastatic workup. Patient will require surgical intervention via C1-5 fusion w/ decompression. Surgery tentatively planned for 10/15/2020. Full consult note to follow. Objective - Vital Sign Vital Signs - 12hr 10/12/20 10/12/20 10/12/20 10:16 10:30 11:00 Temperature Pulse Rate 81 73 Pulse Rate [ From Monitor] Respiratory 20 21 20 Rate Blood Pressure 151/76 O2 Sat by Pulse Oximetry 10/12/20 10/12/20 10/12/20 12:18 12:28 12:30 Temperature Pulse Rate 77 Pulse Rate [ From Monitor] Respiratory 18 21 Rate Blood Pressure 162/71 O2 Sat by Pulse 95 91 Oximetry 10/12/20 10/12/20 10/12/20 12:46 13:00 13:16 Temperature Pulse Rate 73 78 77 Pulse Rate [ From Monitor] Respiratory 19 17 20 Rate Blood Pressure 162/71 147/81 147/81 O2 Sat by Pulse 97 98 94 Oximetry 10/12/20 10/12/20 10/12/20 13:30 13:46 13:56 Temperature Pulse Rate 82 78 Pulse Rate [ From Monitor] Respiratory 24 20 18 Rate Blood Pressure 147/81 147/81 O2 Sat by Pulse 98 97 96 Oximetry 10/12/20 10/12/20 10/12/20 14:32 14:46 15:00 Temperature Pulse Rate 99 H 81 Pulse Rate [ From Monitor] Respiratory 18 21 Rate Blood Pressure 147/81 143/84 147/81 O2 Sat by Pulse 92 93 95 Oximetry 10/12/20 10/12/20 10/12/20 15:10 15:20 15:30 Temperature Pulse Rate 77 74 82 Pulse Rate [ From Monitor] Respiratory 13 21 18 Rate Blood Pressure 147/81 147/81 175/106 O2 Sat by Pulse 95 94 95 Oximetry 10/12/20 10/12/20 10/12/20 15:40 15:52 15:53 Temperature Pulse Rate 75 Pulse Rate [ 72 From Monitor] Respiratory 21 19 Rate Blood Pressure 175/106 175/106 O2 Sat by Pulse 95 93 Oximetry 10/12/20 10/12/2021 16:06 16:51 17:00 Temperature Pulse Rate 85 72 Pulse Rate [ From Monitor] Respiratory 19 20 Rate Blood Pressure 186/76 166/74 O2 Sat by Pulse 92 Oximetry 10/12/20 10/12/20 10/12/20 17:10 17:20 17:30 Temperature Pulse Rate 68 80 71 Pulse Rate [ From Monitor] Respiratory 20 16 15 Rate Blood Pressure 166/74 166/74 166/74 O2 Sat by Pulse 94 92 95 Oximetry 10/12/20 10/12/20 10/12/20 17:40 17:50 18:00 Temperature Pulse Rate 71 69 90 Pulse Rate [ From Monitor] Respiratory 14 13 20 Rate Blood Pressure 166/74 166/74 180/83 O2 Sat by Pulse 92 93 89 Oximetry 10/12/20 10/12/20 10/12/20 18:10 18:20 18:30 Temperature Pulse Rate 81 72 76 Pulse Rate [ From Monitor] Respiratory 22 18 18 Rate Blood Pressure 180/83 180/83 180/83 O2 Sat by Pulse 93 95 95 Oximetry 10/12/20 10/12/20 10/12/20 18:40 18:50 19:00 Temperature Pulse Rate 77 78 77 Pulse Rate [ From Monitor] Respiratory 22 19 22 Rate Blood Pressure 180/83 180/83 158/71 O2 Sat by Pulse 94 95 93 Oximetry 10/12/20 10/12/20 10/12/20 19:30 20:00 20:30 Temperature 99.3 F Pulse Rate 79 82 91 H Pulse Rate [ From Monitor] Respiratory 21 20 20 Rate Blood Pressure 158/71 177/83 177/83 O2 Sat by Pulse 95 93 96 Oximetry 10/12/20 10/12/20 21:00 22:03 Temperature Pulse Rate 84 74 Pulse Rate [ From Monitor] Respiratory 19 Rate Blood Pressure 178/70 166/71 O2 Sat by Pulse 92 Oximetry - Laboratory Findings CBC and BMP: 10/12/20 08:37 10/12/20 08:37 Abnormal Lab Findings: Abnormal Labs 10/12/20 10/12/20 08:37 08:37 MCHC 35 H Lymph % (Auto) 13.0 L Seg Neutrophils % 79.1 H Carbon Dioxide 21 L Creatinine 0.6 L Glucose 105 H Total Creatine Kinase 192 H
[2020-10-13] MEDS: HYDROmorphone 1 MG/1 ML INJ IV PRN ×5 (00:50→19:47)
[2020-10-13] MEDS: hydrALAZINE 20 MG/1 ML INJ IV PRN ×2 (02:19→08:56)
[2020-10-13 05:11] LABS: Basophils % (Auto) 0.2 % (0.0-1.8); Hematocrit 42.8 % (35.5-45.6); Hemoglobin 14.1 gm/dl (11.8-15.2); Lymphocytes % (Auto) 8.8 % (13.4-35.0); Mean Corpuscular HGB Conc 33 % (32-34); Mean Corpuscular Volume 89 fl (84-94); Monocytes # (Auto) 0.5 K/mm3 (0.0-0.8); Platelet Count 281 K/mm3 (140-440); Red Blood Count 4.82 M/mm3 (3.65-5.03)
[2020-10-13] MEDS: methylPREDNISolone Sod Succinate 40 MG/1 ML INJ IV SCH ×3 (05:15→21:41)
[2020-10-13 05:28] LABS: Alanine Aminotransferase 28 units/L (7-56); Albumin 4.6 g/dL (3.9-5); BUN/Creatinine Ratio 26; Blood Urea Nitrogen 23 mg/dL (9-20); Calcium 9.5 mg/dL (8.4-10.2); Hemolysis Index 0
[2020-10-13] MEDS: amLODIPine 5 MG TAB PO SCH (09:00)
[2020-10-13] MEDS: FAMOTIDINE 20 MG TAB PO SCH (09:00)
[2020-10-13] MEDS: LOSARTAN 25 MG TAB PO SCH (09:00)
--- NOTE | 2020-10-13 09:03 | Consultation ---
DATE OF CONSULTATION: 10/12/2020 PULMONARY CRITICAL CARE CONSULT NOTE DATE OF CONSULTATION: 10/12/2020. CONSULTING PHYSICIAN: Dr. Dale Vega. REASON FOR CONSULTATION: 1. Unstable C-spine, likely metastatic spinal lesion to C3-C4. 2. Lung cancer. 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 He denied any trauma to his neck. He denied any chest pains. He denied any neck pain. He denied any constitutional symptoms. No nausea, vomiting, fevers, or chills. He mentioned he had been bedbound since a couple of days prior to coming to the Emergency Room. He did complain of some paracervical neck pain at the initial presentation. He denied IV drug use or abuse. Denied any fevers or chills. Evaluation in the Emergency Room included a CT scan of the neck, which essentially showed that he had a lytic lesion in the C3-C2 region and a stable spine. The Emergency Room physician discussed with the neurosurgeon, and a decision was made to put him in the Intensive Care Unit with neuro checks. When I stopped by to see him, he was resting in bed. He denied any neck pain at that time, he continued to have the upper extremity weakness. He denies gross or streaky hemoptysis. He admits to a 20+ pack year tobacco smoking history. He gives a history of pulmonary tuberculosis that was treated in the 80s. Denies any new onset seizures. This really is as much of the history of presentation as I have. PAST MEDICAL HISTORY: 1. Hypertension. 2. Tobacco use disorder. PAST SURGICAL HISTORY: Denies. MEDICATIONS: He was on at the time I stopped by to see him were reviewed, pertinent medications included the following: Tylenol 650 mg p.o. q. 6 hours p.r.n. mild pain or fevers, albuterol 2.5 mg nebulized q. 3 hours p.r.n. shortness of breath, Dilaudid 0.5 mg IV q.3h hours p.r.n. severe pain, Solu-Medrol 40 mg IV q. 8 hours, Percocet 1 tablet p.o. q. 6 hours p.r.n. moderate pain that is a 5/325 mg p.o. tablet. ALLERGIES: No known drug allergies. DIET: Thin gentleman. Denies acute weight loss or gain in the preceding few weeks to months. FAMILY AND SOCIAL HISTORY: Lives in the community. Denies current alcohol or illicit drug use or abuse. He has a 20+ pack year tobacco smoking history. FAMILY HISTORY: Otherwise, noncontributory. REVIEW OF SYSTEMS: No loss of consciousness. No new onset seizures. He has a new onset upper extremity weakness. Denies gross hematochezia or melena. Denies gross hematuria or dysuria. No hematemesis, no hemoptysis. Denies heat or cold intolerance. Denies polydipsia, polyuria. Complete 13-system review of system was obtained. Pertinent positives and/or negatives as in body of history above, otherwise noncontributory. PHYSICAL EXAMINATION: VITAL SIGNS: On presentation, he was afebrile, temperature 98.8 degrees Fahrenheit, pulse of 86, respiratory rate of 25, blood pressure 151/76, O2 sats were 98%, inspired oxygen concentration at that time was not recorded. When I stopped by to see him, his O2 sats were 94% to 96% on room air. GENERAL: He is an elderly looking male. Normocephalic, atraumatic. Resting in bed with normal respiratory effort at rest. HEENT: Anicteric. No conjunctival erythema. Oropharynx was moist. Mallampati II oropharynx. NECK: No gross jugular venous distention, no thyromegaly, no neck lesions that I can palpate or feel. Grossly, there were no palpable lymph nodes in the supraclavicular or submandibular lymph node chains. No palpable axillary lymph nodes. LUNGS: Auscultation of both lung beasley significant for diminished bilateral breath sounds. No wheezing. HEART: Sounds 1 and 2 are heard at the time of my evaluation, regular rate and rhythm without overt rubs or murmurs. ABDOMEN: Soft, full, protuberant. Bowel sounds are positive, nontender, no palpable hepatosplenomegaly. EXTREMITIES: Without overt digital clubbing or cyanosis, no pedal edema. Pedal pulses are 2+ bilaterally. NEUROLOGIC: Pupils are equal, round, about 4 mm, reactive to light. Extraocular muscle movements were intact. He moves all 4 extremities spontaneously. The power in his upper extremities about 3-4/5 bilaterally. Manager Retention strength is reduced. No lower extremity motor deficits. SKIN: Normal turgor without overt cellulitis or rash in the areas I examined. Please see the wound care nurses' notes for full description of his skin. PSYCHIATRIC: Mood was normal. Affect was appropriate. He had intact judgment and insight. LABORATORY DATA: From my review are as follows: White cell count 9200, hemoglobin 14.2, hematocrit 41.1, platelet count was 254. No manual differential. INR 0.98. Serum sodium 138, potassium 3.7, chloride 102, bicarbonate 21, BUN 19, creatinine 0.6, glucose 105. CPK 192. No microbiology studies for my review. A CT scan of the chest was done. I have reviewed it. Main finding is about a 4 x 3 cm right upper lung mass, more so towards the periphery than the central mediastinum. He also has some right hilar and paratracheal nodes. The right hilar node in particular measures about 1.5 cm, difficult to delineate poor contrast timing. CT of the head, no acute intracranial abnormality. CT of the neck, lytic lesion involving the C3 body and the right C2 body. CT of lumbar spine, no acute findings in the thoracic or lumbar spine. MRA, I believe of the head, no acute findings. ASSESSMENT: 1. Unstable cervical spine, secondary to #2. 2. Metastatic disease, likely from #3. 3. Lung cancer, right lung. 4. History of hypertension. 5. Mild metabolic acidosis. PLAN: Case was discussed with the neurosurgeon by the Emergency Room physician and I have also reached out to him. We will keep him in the Intensive Care Unit out of an abundance of caution for neuro checks q. 1 hour. A cervical spine collar will be ordered in place now to start immobilize the spine. The neurosurgeon states he will try see him later on today. Otherwise, supportive care, antihypertensive control, as mentioned neuro checks, p.r.n. analgesia, aspiration precautions. I will be putting him on GI prophylaxis, especially with him on systemic steroids. DVT prophylaxis in the form of SCDs. Flu and pneumonia vaccination will be addressed per protocol. Thank you very much for the consult. We will follow along and make further recommendations as picture progresses/becomes clearer. TID: [id number] RECEIPT: [id number] KARLA/STEPHANE/JOE
--- NOTE | 2020-10-13 09:41 | Progress Note ---
Assessment and Plan Assessment and Plan - Patient Problems (1) Cord compression syndrome Current Visit: Yes Status: Acute Plan to address problem: Lytic lesion involving the C3 vertebral body, posterior elements and unilateral C2 pars. Findings are concerning for metastatic disease. I recommend CT CAP with and without contrast for metastatic workup. Patient will require surgical intervention via C1-5 fusion w/ decompression. Surgery tentatively planned for 10/15/2020. Full consult note to follow. (2) Lung cancer metastatic to bone Current Visit: Yes Status: Acute Plan to address problem: Supportive care, outpatient oncology follow-up, (3) Advance care planning Current Visit: Yes Status: Acute Plan to address problem: Disease education conducted, care plan discussed, diagnosis discussed, prognosis discussed. Patient is full code at this time. Patient and patient's son acknowledged understanding and agreement with care plan. As well as patient poor prognosis. +30 minutes. Patient is a candidate for hospice and palliative care due to the present the aforementioned diagnosis. We'll treat current symptoms with pain control and readdress after formulation of long-term care plan. (4) DVT prophylaxis Current Visit: Yes Status: Acute Plan to address problem: SCD to bilateral lower extremities while in bed. Subjective Date of service: 10/13/20 Principal diagnosis: Cord compression syndrome Interval history: 75 YO Male with HTN presents to ED for evaluation. Pt reports " I am hurting and I cannot walk". Patient states that he has experienced generalized weakness over the past 2 weeks with acutely worsening symptoms over the past 3 days. Patient reports he has experienced bilateral upper extremity muscle spasms, neck pain. Patient states that he is unable to hold objects in either hand and is unable to care for himself. Patient is currently bedbound, nonambulatory. Patient requires 6/6 assistance with activities of daily living and has a palliative performance score 30%. Patient underwent CT scan of the chest and was found to have a right lung lesion suspected to be a right lung malignancy With suspected metastatic disease to the spine complicated by cord compression syndrome. Total neurology team consulted, neurosurgery consulted, critical care team consulted in the emergency department. Patient admitted to ICU due to increased risk of worsening symptoms. Patient treated with IV steroid therapy, supportive care. Patient denies fever, chills, chest pain, palpitation, productive cough, skin rash, recent ill contacts, known exposure to COVID-19. No prior admission for review. All medication listed at time of admission has been reconciled. Advanced care planning conducted in ED. Objective - Constitutional Vitals: Vital Signs - 12hr 10/12/20 10/12/20 10/12/20 22:00 22:03 22:30 Temperature Pulse Rate 73 74 114 H Respiratory 17 29 H Rate Blood Pressure 166/71 166/71 166/71 O2 Sat by Pulse 91 97 Oximetry 10/12/20 10/12/20 10/12/20 23:00 23:02 23:30 Temperature Pulse Rate 98 H 103 H 87 Respiratory 23 25 H 18 Rate Blood Pressure 169/71 169/71 169/71 O2 Sat by Pulse 91 96 96 Oximetry 10/12/20 10/13/20 10/13/20 23:55 00:00 00:30 Temperature 98.9 F Pulse Rate 97 H 94 H Respiratory 19 20 Rate Blood Pressure 184/62 169/71 O2 Sat by Pulse 92 95 Oximetry 10/13/20 10/13/20 10/13/20 01:00 01:30 02:00 Temperature Pulse Rate 97 H 95 H 103 H Respiratory 21 20 19 Rate Blood Pressure 183/72 183/72 167/72 O2 Sat by Pulse 91 96 92 Oximetry 10/13/20 10/13/20 10/13/20 02:19 02:30 03:00 Temperature Pulse Rate 96 H 103 H 114 H Respiratory 19 26 H Rate Blood Pressure 167/72 167/72 138/60 O2 Sat by Pulse 95 91 Oximetry 10/13/20 10/13/20 10/13/20 03:10 03:28 03:30 Temperature 98.8 F Pulse Rate 104 H 112 H Respiratory 22 Rate Blood Pressure 138/60 O2 Sat by Pulse 94 Oximetry 10/13/20 10/13/20 10/13/20 04:00 04:30 05:00 Temperature Pulse Rate 122 H 113 H 105 H Respiratory 27 H 22 24 Rate Blood Pressure 129/63 129/63 148/63 O2 Sat by Pulse 96 94 Oximetry 10/13/20 10/13/20 10/13/20 05:30 06:00 06:30 Temperature Pulse Rate 97 H 106 H 110 H Respiratory 17 21 25 H Rate Blood Pressure 148/63 151/72 151/72 O2 Sat by Pulse 92 92 95 Oximetry 10/13/20 10/13/20 10/13/20 07:00 07:30 07:32 Temperature 99.0 F Pulse Rate 113 H 104 H Respiratory 26 H 23 Rate Blood Pressure 174/77 174/77 O2 Sat by Pulse 91 94 95 Oximetry 10/13/20 10/13/20 10/13/20 08:00 08:56 09:00 Temperature Pulse Rate 102 H 111 H 112 H Respiratory 21 Rate Blood Pressure 170/68 170/68 O2 Sat by Pulse 90 Oximetry General appearance: Present: no acute distress, well-nourished - EENT Eyes: PERRL, EOM intact ENT: hearing intact, clear oral mucosa Ears: bilateral: normal - Neck Neck: supple, normal ROM - Respiratory Respiratory effort: normal Respiratory: bilateral: CTA - Breasts Breasts: normal - Cardiovascular Rhythm: regular Heart Sounds: Present: S1 & S2. Absent: gallop, rub Extremities: pulses intact, No edema, normal color, Full ROM - Gastrointestinal General gastrointestinal: Present: soft, non-tender, non-distended, normal bowel sounds - Genitourinary Male genitourinary: normal - Integumentary Integumentary: clear, warm, dry - Musculoskeletal Musculoskeletal: 1, strength equal bilaterally - Neurologic Neurologic: moves all extremities - Psychiatric Psychiatric: memory intact, appropriate mood/affect, intact judgment & insight - Labs CBC & Chem 7: 10/15/20 07:03 10/15/20 07:03 Labs: Abnormal lab results 10/13/20 10/13/20 Range/Units 03:54 03:54 WBC 11.7 H (4.5-11.0) K/mm3 Lymph % (Auto) 8.8 L (13.4-35.0) % Lymph # (Auto) 1.0 L (1.2-5.4) K/mm3 Seg Neutrophils % 87.0 H (40.0-70.0) % Seg Neutrophils # 10.2 H (1.8-7.7) K/mm3 Carbon Dioxide 18 L (22-30) mmol/L BUN 23 H (9-20) mg/dL Glucose 118 H (75-100) mg/dL
--- NOTE | 2020-10-13 11:17 | Consultation ---
History of Present Illness Consult date: 10/12/20 Requesting physician: AMALIA SANTACRUZ Reason for Consult: spine mass Chief complaint: weakness History of present illness: Yunier King is a 75 y/o Male w/ history of HTN. He presented to [facility] ER on yesterday with complaints of progressive weakness over the past few months. A CT was obtained, which revealed a lytic lesion cented at the C3 vertebral body with involvement of the posterior elements. There is a dorsal soft tissue mass at C3 that results in severe canal stenosis and cord compression. He was admitted to the ICU, started on IV steroids, and equipped with an aspen collar. With respect to his symptoms, he reports progressive arm and leg weakness over the past few months. On October 10, he was unable to stand and walk independently. He also endorses numbness of his hands and spasms of his upper and lower extremities. He denies any history of cancer. He also denies urinary/bowel dysfunction. He does take an 81 mg ASA daily. Past History Past Medical History: hypertension, other (See HPI) Past Surgical History: No surgical history, Other (Reviewed) Social history: , lives with family. denies: smoking, alcohol abuse (he drinks 1-2 beers daily), prescription drug abuse Family history: hypertension Medications and Allergies Allergies Allergy/AdvReac Type Severity Reaction Status Date / Time No Known Allergies Allergy Unverified 01/27/19 03:48 Home Medications Medication Instructions Recorded Confirmed Last Taken Type Losartan [Cozaar] 25 mg PO QDAY 10/12/20 10/12/20 Unknown History Meloxicam [Mobic] 15 mg PO QDAY 10/12/20 10/12/20 Unknown History Rosuvastatin Calcium 40 mg PO QHS 10/12/20 10/12/20 Unknown History Tizanidine HCl 1 tab PO QHS 10/12/20 10/12/20 Unknown History amLODIPine [Norvasc] 5 mg PO DAILY 10/12/20 10/12/20 Unknown History traZODone [Desyrel] 50 mg PO QHS 10/12/20 10/12/20 Unknown History Active Meds: Active Medications Acetaminophen (Acetaminophen 325 Mg Tab) 650 mg PO Q6H PRN PRN Reason: Pain MILD(1-3)/Fever >100.5/SAENZ Albuterol (Albuterol 2.5 Mg/3 Ml Nebu) 2.5 mg IH Q3HRT PRN PRN Reason: Shortness Of Breath Amlodipine Besylate (Amlodipine 5 Mg Tab) 5 mg PO DAILY [facility] Last Admin: 10/13/20 09:00 Dose: 5 mg Documented by: Famotidine (Famotidine 20 Mg Tab) 20 mg PO QDAY [facility] Last Admin: 10/13/20 09:00 Dose: 20 mg Documented by: Hydralazine HCl (Hydralazine 20 Mg/1 Ml Inj) 10 mg IV Q4HR PRN PRN Reason: Blood Pressure Last Admin: 10/13/20 08:56 Dose: 10 mg Documented by: Hydromorphone HCl (Hydromorphone 1 Mg/1 Ml Inj) 0.5 mg IV Q3H PRN PRN Reason: Pain , Severe (7-10) Last Admin: 10/13/20 08:57 Dose: 0.5 mg Documented by: Sodium Chloride (Nacl 0.9% 1000 Ml) 1,000 mls @ 42 mls/hr IV DIRECT [facility] Losartan Potassium (Losartan 25 Mg Tab) 25 mg PO QDAY [facility] Last Admin: 10/13/20 09:00 Dose: 25 mg Documented by: Methylprednisolone Sodium Succinate (Methylprednisolone Sod Succinate 40 Mg/1 Ml Inj) 40 mg IV Q8HR [facility] Last Admin: 10/13/20 05:15 Dose: 40 mg Documented by: Oxycodone/Acetaminophen (Oxycodone /Acetaminophen 5-325mg Tab) 1 tab PO Q6H PRN PRN Reason: Pain, Moderate (4-6) Sodium Chloride (Sodium Chloride 0.9% 10 Ml Flush Syringe) 10 ml IV BID [facility] Last Admin: 10/13/20 09:01 Dose: 10 ml Documented by: Sodium Chloride (Sodium Chloride 0.9% 10 Ml Flush Syringe) 10 ml IV PRN PRN PRN Reason: LINE FLUSH Review of Systems All systems: negative (what is specified in HPI) Physical Examination - Vital Signs Vital Signs: Vital Signs Pulse Ox 93 10/12/20 09:03 - Physical Exam Narrative exam: seen and examined no acute distress NC/AT RRR breathing non-labored abdomen soft no cyanosis or clubbing A&Ox3 CNII-XII intact motor strength 4/5 throughout sensation diminished to light touch in both hands +Hoffmans b/l UE sustained clonus in RLE +tenderness to palpation of subaxial cervical spine Results - Laboratory Findings CBC and BMP: 10/13/20 03:54 10/13/20 03:54 Abnormal Lab Findings: Abnormal Labs 10/12/20 10/12/20 10/13/20 08:37 08:37 03:54 WBC 11.7 H MCHC 35 H Lymph % (Auto) 13.0 L 8.8 L Lymph # (Auto) 1.0 L Seg Neutrophils % 79.1 H 87.0 H Seg Neutrophils # 10.2 H Carbon Dioxide 21 L BUN Creatinine 0.6 L Glucose 105 H Total Creatine Kinase 192 H 10/13/20 03:54 WBC MCHC Lymph % (Auto) Lymph # (Auto) Seg Neutrophils % Seg Neutrophils # Carbon Dioxide 18 L BUN 23 H Creatinine Glucose 118 H Total Creatine Kinase Assessment and Plan 75 y/o M w/ progressive extremity weakness, severe cervical stenosis and cord compression secondary to C3 lytic lesion with dorsal epidural soft tissue component -please obtain MRI Thoracic and Lumbar spine -recommend bedrest for now -cont IV methylprednisone -plan for surgical intervention on Wednesday morning, 10/15 via C1-5 PSF w/ removal of dorsal epidural mass -patient will need 2 units platelets pre op and an additional 2 units post op -please notify if questions
--- NOTE | 2020-10-13 14:29 | Electrocardiograph Report ---
[facility] Test Date: 2020-10-12 Test Time: 10:08:03 Pat Name: YARI GUY Department: Room: A253 1 Gender: M Cops: EUGENIE : 1945-06-12 Requested By: AMALIA SANTACRUZ Order Number: [id number] Reading MD: Dawson Lang Measurements Intervals Waddy Rate: 81 P: 56 CT: 187 QRS: -35 QRSD: 107 T: 44 QT: 380 QTc: 443 Interpretive Statements Sinus rhythm Probable left atrial enlargement Left ventricular hypertrophy No previous ECG available for comparison Electronically Signed On 10-13-2020 14:29:20 EDT by Dawson Lang
--- NOTE | 2020-10-13 15:40 | Progress Note ---
Assessment and Plan Unstable cervical spine (lytic lesions) Metastatic disease Lung Mass (right lung) Hypertension Metabolic acidosis - continue to encourage C-collar use - tentatively to O.R. on Wednesday - await pathology report before Lung Mass biopsy as may be diagnostic - if needs lung biopsy CT guided approach better re: Unstable c-spine issues - continue care as nelow otherwise; - neurochecks per neurosurgeon - prn supplemental oxygen to keep O2 sats > 90% - prn bronchodilators (LAURI & LABA) with pulm hygiene per RT - continue systemic steroids re: cord edema - avoid nephrotoxins, renally dose all medications - continue mobility protocols to prevent pressure ulcers - PT/OT as tolerated - Wound care per RN/WCT - accuchecks with glycemic control per SSI for target blood glucose < 180 mg/dL - tobacco abstinence strongly counseled at the bedside - home oxygen evaluation at discharge - GI & VTE prophylaxis - Flu & pneumovax per protocol - Pulmonary out patient follow up for PFTs and optimization of respiratory status - continue other care per attending / other consultants - prn analgesia per pain score ... re-evaluate in am & prn Subjective Date of service: 10/13/20 Principal diagnosis: Unstable C-spine; R. Lung Mass; HTN; Metabolic acidosis Interval history: Patient is seen today for: Unstable cervical spine; R. Lung Mass; Hypertension; Metabolic acidosis Seen and examined at bedside; 24hour events reviewed; nursing and respiratory care staff consulted; no adverse overnight events reported to me; resting in bed; seen by neurosurgeon and tentatively to O.R. on Wednesday; refused C-collar overnight and i have explained to him that he risks quadriplegia if there is trauma to his spinal cord; No N/V/F/C Objective Vital Signs - 12hr 10/13/20 10/13/20 10/13/20 04:00 04:30 05:00 Temperature Pulse Rate 122 H 113 H 105 H Respiratory 27 H 22 24 Rate Blood Pressure 129/63 129/63 148/63 O2 Sat by Pulse 96 94 Oximetry 10/13/20 10/13/20 10/13/20 05:30 06:00 06:30 Temperature Pulse Rate 97 H 106 H 110 H Respiratory 17 21 25 H Rate Blood Pressure 148/63 151/72 151/72 O2 Sat by Pulse 92 92 95 Oximetry 10/13/20 10/13/20 10/13/20 07:00 07:30 07:32 Temperature 99.0 F Pulse Rate 113 H 104 H Respiratory 26 H 23 Rate Blood Pressure 174/77 174/77 O2 Sat by Pulse 91 94 95 Oximetry 10/13/20 10/13/20 10/13/20 08:00 08:30 08:56 Temperature 98.7 F Pulse Rate 102 H 97 H 111 H Respiratory 21 22 Rate Blood Pressure 170/68 170/68 170/68 O2 Sat by Pulse 90 93 Oximetry 10/13/20 10/13/20 10/13/20 09:00 09:30 10:00 Temperature Pulse Rate 110 H 118 H 105 H Respiratory 23 21 21 Rate Blood Pressure 172/73 172/73 170/72 O2 Sat by Pulse 91 95 89 Oximetry 10/13/20 10/13/20 10/13/20 10:30 11:00 11:35 Temperature Pulse Rate 114 H 100 H 89 Respiratory 22 24 19 Rate Blood Pressure 170/72 157/63 O2 Sat by Pulse 93 90 95 Oximetry 10/13/20 10/13/20 10/13/20 11:54 12:00 12:30 Temperature 98.6 F Pulse Rate 98 H 98 H Respiratory 22 24 Rate Blood Pressure 158/62 158/62 O2 Sat by Pulse 90 93 Oximetry 10/13/20 10/13/20 10/13/20 13:00 13:30 14:00 Temperature Pulse Rate 91 H 100 H 94 H Respiratory 21 25 H 27 H Rate Blood Pressure 145/61 145/61 172/79 O2 Sat by Pulse 89 94 91 Oximetry Constitutional: no acute distress Eyes: non-icteric ENT: oropharynx moist Neck: supple, no lymphadenopathy, no JVD Effort: normal Ascultation: Bilateral: clear, diminished breath sounds Percussion: Bilateral: not dull Cardiovascular: regular rate and rhythm Gastrointestinal: normoactive bowel sounds, soft, non-tender, non-distended Integumentary: normal Extremities: no cyanosis, no edema, pulses normal, no ischemia or petechiae Neurologic: pupils equal and round, CN II-XII normal, other (improved upper extremity power) Psychiatric: mood appropriate, affect normal CBC and BMP: 10/13/20 03:54 10/13/20 03:54 ABG, PT/INR, D-dimer: PT/INR, D-dimer PT 13.6 Sec. (12.2-14.9) 10/12/20 08:37 INR 0.98 (0.87-1.13) 10/12/20 08:37 Abnormal lab findings: Abnormal Labs 10/12/20 10/12/20 10/13/20 08:37 08:37 03:54 WBC 11.7 H MCHC 35 H Lymph % (Auto) 13.0 L 8.8 L Lymph # (Auto) 1.0 L Seg Neutrophils % 79.1 H 87.0 H Seg Neutrophils # 10.2 H Carbon Dioxide 21 L BUN Creatinine 0.6 L Glucose 105 H POC Glucose Total Creatine Kinase 192 H 10/13/20 10/13/20 03:54 11:40 WBC MCHC Lymph % (Auto) Lymph # (Auto) Seg Neutrophils % Seg Neutrophils # Carbon Dioxide 18 L BUN 23 H Creatinine Glucose 118 H POC Glucose 153 H Total Creatine Kinase Allied health notes reviewed: nursing
[2020-10-14] MEDS: HYDROmorphone 1 MG/1 ML INJ IV PRN ×3 (05:47→20:51)
[2020-10-14] MEDS: methylPREDNISolone Sod Succinate 40 MG/1 ML INJ IV SCH ×3 (05:48→21:00)
[2020-10-14] MEDS ORDERED: DEXTROSE 50% IN WATER (25GM) 50 ML SYRINGE IV PRN (07:55)
[2020-10-14] MEDS: LOSARTAN 25 MG TAB PO SCH (09:29)
[2020-10-14] MEDS: amLODIPine 5 MG TAB PO SCH (09:30)
[2020-10-14] MEDS: FAMOTIDINE 20 MG TAB PO SCH (09:30)
[2020-10-14] MEDS: INSULIN LISPRO 100 UNIT/ML SUB-Q SCH ×3 (11:34→21:12)
--- NOTE | 2020-10-14 12:26 | Progress Note ---
Assessment and Plan Unstable cervical spine (lytic lesions) Metastatic disease Lung Mass (right lung) Hypertension Metabolic acidosis - to receive 2 units platelets pre-op at 5;00 am tomorrow - continue to encourage C-collar use - await pathology report of C-spine lesion before Lung Mass biopsy as may be diagnostic - if needs lung biopsy, CT guided approach better re: Unstable c-spine issues - continue care as nelow otherwise; - neurochecks per neurosurgeon - prn supplemental oxygen to keep O2 sats > 90% - prn bronchodilators (LAURI & LABA) with pulm hygiene per RT - continue systemic steroids re: cord edema - avoid nephrotoxins, renally dose all medications - continue mobility protocols to prevent pressure ulcers - PT/OT as tolerated - Wound care per RN/WCT - accuchecks with glycemic control per SSI for target blood glucose < 180 mg/dL - tobacco abstinence strongly counseled at the bedside - home oxygen evaluation at discharge - GI & VTE prophylaxis - Flu & pneumovax per protocol - Pulmonary out patient follow up for PFTs and optimization of respiratory status - continue other care per attending / other consultants - prn analgesia per pain score ... re-evaluate in am & prn Subjective Date of service: 10/14/20 Principal diagnosis: Unstable C-spine; R. Lung Mass; HTN; Metabolic acidosis Interval history: Patient is seen today for: Unstable cervical spine; R. Lung Mass; Hypertension; Metabolic acidosis Seen and examined at bedside; 24hour events reviewed; nursing and respiratory care staff consulted; no adverse overnight events reported to me; resting in bed; to go for MRI; still refusing C-Collar; no N/V/F/C Objective Vital Signs - 12hr 10/14/20 10/14/20 10/14/20 01:00 02:00 03:00 Temperature Pulse Rate 75 75 77 Respiratory 20 15 17 Rate Blood Pressure 142/66 140/65 140/65 O2 Sat by Pulse 88 94 Oximetry 10/14/20 10/14/20 10/14/20 04:00 04:35 05:00 Temperature 98.3 F Pulse Rate 69 64 79 Respiratory 18 13 Rate Blood Pressure 124/61 124/61 O2 Sat by Pulse 89 95 Oximetry 10/14/20 10/14/20 10/14/20 06:00 07:00 08:00 Temperature 98.3 F Pulse Rate 74 63 61 Respiratory 13 13 16 Rate Blood Pressure 123/63 123/63 123/63 O2 Sat by Pulse 93 93 93 Oximetry 10/14/20 10/14/20 10/14/20 09:00 09:29 09:30 Temperature Pulse Rate 70 73 79 Respiratory 19 Rate Blood Pressure 149/69 149/69 149/69 O2 Sat by Pulse 86 Oximetry 10/14/20 10/14/20 10/14/20 10:00 11:00 11:28 Temperature Pulse Rate 70 66 67 Respiratory 17 16 Rate Blood Pressure 147/67 147/67 O2 Sat by Pulse 89 95 Oximetry 10/14/20 11:56 Temperature 98.3 F Pulse Rate Respiratory Rate Blood Pressure O2 Sat by Pulse Oximetry Constitutional: no acute distress Eyes: non-icteric ENT: oropharynx moist Neck: supple, no lymphadenopathy, no JVD Effort: normal Ascultation: Bilateral: clear, diminished breath sounds Percussion: Bilateral: not dull Cardiovascular: regular rate and rhythm Gastrointestinal: normoactive bowel sounds, soft, non-tender, non-distended Integumentary: normal Extremities: no cyanosis, no edema, pulses normal, no ischemia or petechiae Neurologic: pupils equal and round, CN II-XII normal, other (improved upper extremity power) Psychiatric: mood appropriate, affect normal CBC and BMP: 10/13/20 03:54 10/13/20 03:54 ABG, PT/INR, D-dimer: PT/INR, D-dimer PT 13.6 Sec. (12.2-14.9) 10/12/20 08:37 INR 0.98 (0.87-1.13) 10/12/20 08:37 Abnormal lab findings: Abnormal Labs 10/12/20 10/12/20 10/13/20 08:37 08:37 03:54 WBC 11.7 H MCHC 35 H Lymph % (Auto) 13.0 L 8.8 L Lymph # (Auto) 1.0 L Seg Neutrophils % 79.1 H 87.0 H Seg Neutrophils # 10.2 H Carbon Dioxide 21 L BUN Creatinine 0.6 L Glucose 105 H POC Glucose Total Creatine Kinase 192 H 10/13/20 10/13/20 03:54 11:40 WBC MCHC Lymph % (Auto) Lymph # (Auto) Seg Neutrophils % Seg Neutrophils # Carbon Dioxide 18 L BUN 23 H Creatinine Glucose 118 H POC Glucose 153 H Total Creatine Kinase Allied health notes reviewed: nursing
[2020-10-14] MEDS ORDERED: HYDROmorphone 2 MG/1 ML INJ IV SCH (14:30)
--- NOTE | 2020-10-14 16:43 | Magnetic Resonance Report ---
MRI LUMBAR SPINE WITHOUT AND WITH CONTRAST INDICATION / CLINICAL INFORMATION: spinal lesions, cord compression. TECHNIQUE: Multisequence, multiplanar images of the lumbar spine were obtained. COMPARISON: CT scan of the abdomen and pelvis FINDINGS: Lumbosacral junction L5-S1 ALIGNMENT: Normal lumbar lordosis without significant scoliosis. VERTEBRAE:Normal marrow signal and vertebral body height for age. No vertebral compression fracture i n the lumbar spine VISUALIZED SPINAL CORD: No significant abnormality. Conus ends at T12-L1 disc level [id number] ANALYSIS: T12-L1: Normal L1-2: No significant abnormality. L2-3: Asymmetric disc bulge extending laterally towards the foraminal zone bilaterally more on the ri ght side; mild foraminal stenoses bilaterally L3-4: Right foraminal disc bulge; mild right foraminal stenoses L4-5: Disc bulge without lateralization L5-S1: Large disc herniation in the left subarticular zone contacting and displacing the exiting left BE S1 nerve root PARASPINAL SOFT TISSUES: No significant abnormality. ADDITIONAL FINDINGS: None. IMPRESSION: No metastatic lesion in the lumbar spine Large disc herniation at L5-S1 level on the left side displacing the dural sac Signer Name: Mansi Figueroa MD Signed: 10/14/2020 4:39 PM Workstation Name: [id number]
--- NOTE | 2020-10-14 17:03 | Magnetic Resonance Report ---
MR thoracic spine wo/w con INDICATION / CLINICAL INFORMATION: 75 years Male; spinal lesions, cord compression. TECHNIQUE: Multisequence, multiplanar images of the thoracic spine were obtained. COMPARISON: None available. FINDINGS: ALIGNMENT: Normal thoracic kyphosis without significant scoliosis. VERTEBRAE:Grossly normal marrow signal and vertebral body height for age. Costovertebral, costotransverse, and facet joints demonstrate mild, multilevel areas of degenerative change. Overall, no significant foraminal narrowing appreciated. Multiple, presumed hemangiomata identified at multiple levels. These findings should be of no clinica l significance. No significant marrow edema seen at any level. VISUALIZED SPINAL CORD: No significant abnormality. Visualized conus medullaris is grossly normal in appearance. INTERVERTEBRAL DISCS: No significant abnormality. PARASPINAL SOFT TISSUES: No significant abnormality. ADDITIONAL FINDINGS: Right lung lesion suggested. This finding is seen on CT the chest from 10/12/2020 . IMPRESSION: 1. Mild degenerative changes of the thoracic spine as described above. No single, dominant cause for patient's symptomatology seen. 2. No vertebral body lesion identified. Signer Name: Jarrod Sauer MD, III Signed: 10/14/2020 4:59 PM Workstation Name: [id number]
[2020-10-14 17:34] LABS: INR 1.01 (0.87-1.13)
--- NOTE | 2020-10-14 18:54 | Progress Note ---
Assessment and Plan Assessment and plan: 75 yo male with HTN admitted with severe cervical stenosis and cord compression 2/2 C3 lytic lesion with dorsal epidural space mass, metastatic disease, lung mass, metabolic acidosis Past Medical History: hypertension Past Surgical History: No surgical history Social history: , lives with family. denies: smoking, alcohol abuse (he drinks 1-2 beers daily), prescription drug abuse Home meds: mobic, tizandine, desyrel, amlodipine, losartan, rosuvastatin Neuro: Severe cervical stenosis and cord compression 2/2 C3 lytic lesion with dorsal epidural space mass -Neurosurgery consulted, appreciate recommendations -C-collar per neurosurgery -Patient scheduled for PSO of C-spine with removal of dorsal epidural mass with neurosurgery for 10/15 -2 units platelet to be transfused on 10/15 AM -Neurosurgery request 2 units of platelets to be transfused postop -Every hour neurochecks -IV Decadron, prn Dilaudid and oxycodone -Aspiration/fall/seizure precautions -10/12 CT head no acute intracranial normality -10/12 CT C-spine shows lytic lesion involving C3 vertebral body, posterior elements and 3 cm right middle lung zone lung mass concerning for primary lung cancer -10/12 CT L-spine shows large mass with pain right lung, no acute fracture in the thoracic or lumbar spine, degenerative changes seen throughout -10/12 CT L-spine shows no acute fracture, degenerative changes seen throughout -10/12 MRI brain shows no acute intracranial abnormality, remote right coronary radiata infarct -10/12 for MRI C-spine shows severe spinal canal stenosis and cord compression -10/12 CTA neck shows C3 lesion with cortical breakthrough and epidural extension resulting in moderate to severe spinal canal stenosis, right upper lobe mass -10/13 CTA head shows no occlusion or significant stenosis of major intracranial vasculature -10/14 L-spine MRI shows no metastatic lesion of the lumbar spine, large disc herniation L5 5S1 level of the left side displacing the left dural sac -10/14 T-spine MRI shows mild degenerative changes of thoracic spine, no vertebral lesion identified Cardio: SR, SBP 120-140s, h/o HTN, CAD -resume home amlodipine, losartan -As needed hydralazine -Blood pressure monitor per protocol -uses home Aspirin -Resume home statin Respiratory: R lung mass -Supplemental oxygen as needed -Pulmonary hygiene -10/12 CT chest shows large mass within the right upper lung with associated right failure and paratracheal adenopathy GI: NAD -PPI: Pepcid -10/12 CT abdomen/pelvis shows no acute finding -Diet: Cardiac diet, n.p.o. post midnight -SSI, Accu-Cheks AC at bedtime -Bowel regimen: Colace : NAD -Condom catheter in place -24 hours net -450 Heme: Leukocytosis -Patient is on Decadron -Transfuse for hemoglobin less than 7 -2 units platelets preop requested by neurosurgery -Type and cross today -Trend CBC -SCDs to BLE while in bed -Avoid chemical prophylaxis due to surgery ID: NAD, afebrile Slight leukocytosis however the patient is on Decadron Dispo: ICU Full code History Interval history: This is a 75 YO Male with HTN who presented to ED for evaluation for complains of " I am hurting and I cannot walk", generalized weakness over the past 2 weeks with acutely worsening symptoms over the past 3 days, bilateral upper extremity muscle spasms, neck pain, inability to hold objects in either hand and is unable to care for himself currently bedbound, nonambulatory, requires 6/6 assistance with activities of daily living and has a palliative performance score 30%. Patient underwent CT scan of the chest and was found to have a right lung lesion suspected to be a right lung malignancy with suspected metastatic disease to the spine complicated by cord compression syndrome. Tele neurology team, neurosurgery and critical care team consulted in the emergency department. Patient admitted to ICU due to increased risk of worsening symptoms. Patient treated with IV steroid therapy, supportive care. 10/14: No acute events reported overnight, patient continues to refuse c-collar, scheduled for [facility] neurosurgery, 2 units plts preop. Hospitalist Physical - Constitutional Vitals: Temp Pulse Resp BP Pulse Ox 98.3 F 66 18 143/69 94 10/14/20 11:56 10/14/20 18:00 10/14/20 18:00 10/14/20 18:00 10/14/20 18:00 General appearance: Present: no acute distress, well-nourished - EENT Eyes: Present: PERRL ENT: clear oral mucosa - Neck Neck: Present: other (refuses to move d/t pain ) - Respiratory Respiratory effort: normal - Cardiovascular Rhythm: regular - Extremities Extremities: no ischemia, pulses intact, pulses symmetrical, No edema, normal temperature, normal color Peripheral Pulses: within normal limits - Abdominal General gastrointestinal: soft - Integumentary Integumentary: Present: clear, warm, dry - Psychiatric Psychiatric: no cooperative - Allied Health Allied health notes reviewed: nursing, social work Results - Labs CBC & Chem 7: 10/13/20 03:54 10/13/20 03:54 Labs: Laboratory Last Values WBC 11.7 K/mm3 (4.5-11.0) H 10/13/20 03:54 RBC 4.82 M/mm3 (3.65-5.03) 10/13/20 03:54 Hgb 14.1 gm/dl (11.8-15.2) 10/13/20 03:54 Hct 42.8 % (35.5-45.6) 10/13/20 03:54 MCV 89 fl (84-94) 10/13/20 03:54 MCH 29 pg (28-32) 10/13/20 03:54 MCHC 33 % (32-34) 10/13/20 03:54 RDW 15.0 % (13.2-15.2) 10/13/20 03:54 Plt Count 281 K/mm3 (140-440) 10/13/20 03:54 Lymph % (Auto) 8.8 % (13.4-35.0) L 10/13/20 03:54 [place] % (Auto) 4.0 % (0.0-7.3) 10/13/20 03:54 Eos % (Auto) 0.0 % (0.0-4.3) 10/13/20 03:54 Baso % (Auto) 0.2 % (0.0-1.8) 10/13/20 03:54 Lymph # (Auto) 1.0 K/mm3 (1.2-5.4) L 10/13/20 03:54 [place] # (Auto) 0.5 K/mm3 (0.0-0.8) 10/13/20 03:54 Eos # (Auto) 0.0 K/mm3 (0.0-0.4) 10/13/20 03:54 Baso # (Auto) 0.0 K/mm3 (0.0-0.1) 10/13/20 03:54 Seg Neutrophils % 87.0 % (40.0-70.0) H 10/13/20 03:54 Seg Neutrophils # 10.2 K/mm3 (1.8-7.7) H 10/13/20 03:54 PT 13.9 Sec. (12.2-14.9) 10/14/20 16:28 INR 1.01 (0.87-1.13) 10/14/20 16:28 APTT 26.2 Sec. (24.2-36.6) 10/12/20 08:37 Sodium 140 mmol/L (137-145) 10/13/20 03:54 Potassium 3.8 mmol/L (3.6-5.0) 10/13/20 03:54 Chloride 103.6 mmol/L (98-107) 10/13/20 03:54 Carbon Dioxide 18 mmol/L (22-30) L 10/13/20 03:54 Anion Gap 22 mmol/L 10/13/20 03:54 BUN 23 mg/dL (9-20) H 10/13/20 03:54 Creatinine 0.9 mg/dL (0.8-1.3) 10/13/20 03:54 Estimated GFR > 60 ml/min 10/13/20 03:54 BUN/Creatinine Ratio 26 % 10/13/20 03:54 Glucose 118 mg/dL (75-100) H 10/13/20 03:54 POC Glucose 102 mg/dL (70-105) 10/14/20 16:30 Calcium 9.5 mg/dL (8.4-10.2) 10/13/20 03:54 Magnesium 2.00 mg/dL (1.7-2.3) 10/12/20 08:37 Total Bilirubin 0.60 mg/dL (0.1-1.2) 10/13/20 03:54 AST 23 units/L (5-40) 10/13/20 03:54 ALT 28 units/L (7-56) 10/13/20 03:54 Alkaline Phosphatase 115 units/L (35-129) 10/13/20 03:54 Total Creatine Kinase 192 units/L (55-170) H 10/12/20 08:37 Total Protein 7.9 g/dL (6.3-8.2) 10/13/20 03:54 Albumin 4.6 g/dL (3.9-5) 10/13/20 03:54 Albumin/Globulin Ratio 1.4 % 10/13/20 03:54 Blood Type A POSITIVE 10/14/20 10:27 Antibody Screen Negative 10/14/20 10:27 Das/IV: Voiding Method Condom Catheter Active Medications - Current Medications Current Medications: Generic Name Dose Route Start Last Admin Trade Name Freq PRN Reason Stop Dose Admin Acetaminophen 650 mg 10/12/20 13:18 Acetaminophen 325 Mg Tab PO Q6H PRN Pain MILD(1-3)/Fever >100.5/SAENZ Albuterol 2.5 mg 10/12/20 13:18 Albuterol 2.5 Mg/3 Ml Nebu IH Q3HRT PRN Shortness Of Breath Amlodipine Besylate 5 mg 10/13/20 10:00 10/14/20 09:30 Amlodipine 5 Mg Tab PO 5 mg DAILY MIGUELINA Administration Atorvastatin Calcium 40 mg 10/14/20 22:00 Atorvastatin 40 Mg Tab PO QHS MIGUELINA Dextrose 50 ml 10/14/20 07:55 Dextrose 50% In Water (25gm) 50 Ml Syringe IV Q30MIN PRN Hypoglycemia Protocol Docusate Sodium 100 mg 10/14/20 22:00 Docusate Sodium 100 Mg Cap PO BID MIGUELINA Famotidine 20 mg 10/13/20 10:00 10/14/20 09:30 Famotidine 20 Mg Tab PO 20 mg QDAY MIGUELINA Administration Hydralazine HCl 10 mg 10/12/20 21:26 10/13/20 08:56 Hydralazine 20 Mg/1 Ml Inj IV 10 mg Q4HR PRN Administration Blood Pressure Hydromorphone HCl 0.5 mg 10/12/20 13:18 10/14/20 12:59 Hydromorphone 1 Mg/1 Ml Inj IV 0.5 mg Q3H PRN Administration Pain , Severe (7-10) Hydromorphone HCl 0.5 mg 10/14/20 14:30 Hydromorphone 2 Mg/1 Ml Inj IV 10/15/20 14:29 ONCE MIGUELINA Sodium Chloride 1,000 mls @ 42 mls/hr 10/12/20 13:30 Nacl 0.9% 1000 Ml IV DIRECT MIGUELINA Sodium Chloride 500 mls @ 0 mls/hr 10/15/20 06:00 Nacl 0.9% 500 Ml IV 10/15/20 23:59 ONCE NR As Directed Insulin Human Lispro 0 unit 10/14/20 11:30 10/14/20 18:02 Insulin Lispro 100 Unit/Ml SUB-Q Not Given ACHS [facility] Protocol Losartan Potassium 25 mg 10/13/20 10:00 10/14/20 09:29 Losartan 25 Mg Tab PO 25 mg QDAY MIGUELINA Administration Methylprednisolone Sodium Succinate 40 mg 10/12/20 14:00 10/14/20 14:41 Methylprednisolone Sod Succinate 40 Mg/1 Ml Inj IV 40 mg Q8HR MIGUELINA Administration Oxycodone/Acetaminophen 1 tab 10/12/20 13:18 Oxycodone /Acetaminophen 5-325mg Tab PO Q6H PRN Pain, Moderate (4-6) Sodium Chloride 10 ml 10/12/20 22:00 10/14/20 09:30 Sodium Chloride 0.9% 10 Ml Flush Syringe IV 10 ml BID MIGUELINA Administration Sodium Chloride 10 ml 10/12/20 13:18 Sodium Chloride 0.9% 10 Ml Flush Syringe IV PRN PRN LINE FLUSH
[2020-10-14] MEDS: DOCUSATE SODIUM 100 MG CAP PO SCH (21:00)
[2020-10-14] MEDS: oxyCODONE /ACETAMINOPHEN 5-325MG TAB PO PRN (22:40)
[2020-10-15] MEDS: HYDROmorphone 1 MG/1 ML INJ IV PRN ×7 (01:08→23:53)
[2020-10-15] MEDS: hydrALAZINE 20 MG/1 ML INJ IV PRN ×2 (02:51→17:39)
[2020-10-15] MEDS ORDERED: LORazepam 2 MG/ML VIAL IV PRN (03:14)
[2020-10-15] MEDS: LORazepam 2 MG/ML VIAL IV PRN (03:34)
[2020-10-15] MEDS ORDERED: SODIUM CHLORIDE 0.9% 500 ML 500 ML IV NR (06:00)
[2020-10-15] MEDS ORDERED: BACTERIOSTATIC SODIUM CHLORIDE 0.9% 30 ML VIAL INFILTRATI ONE (07:06)
[2020-10-15 07:19] LABS: Hematocrit 40.4 % (35.5-45.6); Hemoglobin 13.3 gm/dl (11.8-15.2); Mean Corpuscular HGB Conc 33 % (32-34); Mean Corpuscular Volume 88 fl (84-94); Platelet Count 335 K/mm3 (140-440); Red Blood Count 4.57 M/mm3 (3.65-5.03); Red Cell Distribution Width 14.7 % (13.2-15.2)
[2020-10-15] MEDS ORDERED: ROCURONIUM 50 MG/5 ML INJ IV ONE (07:26)
[2020-10-15] MEDS ORDERED: LIDOCAINE MPF (2%) 20 MG/1 ML VIAL 5 ML ONE (07:26)
[2020-10-15] MEDS ORDERED: SUCCINYLCHOLINE CHLORIDE 200 MG/10 ML INJ MDV ONE (07:26)
[2020-10-15] MEDS ORDERED: fentaNYL 100 MCG/2 ML INJ ONE ×2 (07:27→09:01)
[2020-10-15] MEDS ORDERED: propofoL 200 MG/20 ML VIAL IV ONE (07:27)
[2020-10-15] MEDS: INSULIN LISPRO 100 UNIT/ML SUB-Q SCH ×4 (07:30→22:00)
[2020-10-15 07:31] LABS: Blood Urea Nitrogen 29 mg/dL (9-20); Calcium 9.5 mg/dL (8.4-10.2); Hemolysis Index 5
[2020-10-15] MEDS ORDERED: HYDROmorphone 1 MG/1 ML INJ IV PRN (07:32)
[2020-10-15] MEDS ORDERED: ONDANSETRON 4 MG/2 ML INJ IV PRN (07:32)
[2020-10-15] MEDS ORDERED: MAGNESIUM OXIDE 400 MG TAB PO NR (07:32)
[2020-10-15 07:34] LABS: BUN/Creatinine Ratio 41
[2020-10-15] MEDS ORDERED: CARISOPRODOL 350 MG TAB PO NR (07:34)
--- NOTE | 2020-10-15 07:36 | Anesthesia Day of Surgery ---
Anesthesia Day of Surgery - Day of Surgery Patient Examined: Yes Patient H&P Reviewed: Yes Patient is NPO: Yes
--- NOTE | 2020-10-15 07:39 | Anesthesia Consultation ---
Anesthesia Consult and Med Hx Date of service: 10/15/20 - Airway Anesthetic Teeth Evaluation: Poor ROM Head & Neck: Adequate Mental/Hyoid Distance: Adequate Mallampati Class: Class II Intubation Access Assessment: Good - Pre-Operative Health Status ASA Pre-Surgery Classification: ASA4 Proposed Anesthetic Plan: General - Pulmonary Hx Smoking: Yes (27 YRS OLD) Hx Asthma: Yes (Lung ca mets to neck) - Cardiovascular System Hx Hypertension: Yes - Gastrointestinal Hx Ulcer: Yes - Hematic Hx Anemia: No - Other Systems Hx Cancer: No Hx Obesity: No
[2020-10-15] MEDS ORDERED: BUPIVACAINE/PF (0.25%) 2.5 MG/ML 30 ML VIAL INFILTRATI ONE ×2 (07:56→12:25)
[2020-10-15] MEDS ORDERED: BACITRACIN ZINC OINT 28.4 GM TP ONE ×3 (07:56→11:23)
[2020-10-15] MEDS ORDERED: GELATIN SPONGE SIZE 100 TP ONE ×2 (07:57→11:19)
[2020-10-15] MEDS ORDERED: LIDOCAINE 1%/EPINEPHRINE 1:100,000 VIAL (20 ML) INFILTRATI ONE ×2 (07:57→11:19)
[2020-10-15] MEDS ORDERED: THROMBIN (RECOMBINANT) 5,000 UNIT VIAL TP ONE ×2 (07:57→11:20)
[2020-10-15] MEDS ORDERED: ACETAMINOPHEN 325 MG TAB PO NR (08:00)
[2020-10-15] MEDS ORDERED: MIDAZOLAM 2 MG/2 ML INJ IV NR (08:00)
[2020-10-15] MEDS ORDERED: GENTAMICIN 40 MG/ML VIAL 2 ML ONE (08:05)
--- NOTE | 2020-10-15 08:45 | Progress Note ---
Subjective Date of service: 10/15/20 Principal diagnosis: Cord compression syndrome Interval history: seen and examined in Preop patient denies any present concerns motor and sensory stable I reviewed the surgical plan in detail, answered all questions will proceed to OR for C1-5 stabilization, C3 laminectomy for tumor resection Objective - Vital Sign Vital Signs - 12hr 10/14/20 10/14/20 10/14/20 20:51 21:00 21:20 Temperature Pulse Rate 70 Respiratory 20 19 Rate Respiratory 20 Rate [Lower Posterior Generalized] Blood Pressure 152/68 O2 Sat by Pulse 91 92 Oximetry 10/14/20 10/14/20 10/14/20 21:21 22:00 22:40 Temperature Pulse Rate 72 Respiratory 14 21 18 Rate Respiratory Rate [Lower Posterior Generalized] Blood Pressure 155/78 O2 Sat by Pulse 93 Oximetry 10/14/20 10/14/20 10/14/20 23:00 23:19 23:24 Temperature Pulse Rate 67 70 Respiratory 16 19 Rate Respiratory Rate [Lower Posterior Generalized] Blood Pressure 157/70 157/70 O2 Sat by Pulse 90 88 96 Oximetry 10/14/20 10/15/20 10/15/20 23:40 00:00 01:00 Temperature 98.4 F Pulse Rate 67 68 Respiratory 20 15 15 Rate Respiratory Rate [Lower Posterior Generalized] Blood Pressure 147/66 161/68 O2 Sat by Pulse 90 89 Oximetry 10/15/20 10/15/20 10/15/20 01:08 01:38 02:00 Temperature Pulse Rate 64 Respiratory 18 16 10 L Rate Respiratory Rate [Lower Posterior Generalized] Blood Pressure 169/72 O2 Sat by Pulse 93 Oximetry 10/15/20 10/15/20 10/15/20 02:51 03:00 03:22 Temperature 98.8 F Pulse Rate 72 74 Respiratory 19 Rate Respiratory Rate [Lower Posterior Generalized] Blood Pressure 169/72 170/63 O2 Sat by Pulse 92 Oximetry 10/15/20 10/15/20 10/15/20 04:01 04:41 04:53 Temperature 98.8 F 98.3 F Pulse Rate 91 H 91 H 92 H Respiratory 15 15 14 Rate Respiratory Rate [Lower Posterior Generalized] Blood Pressure 128/57 128/57 128/57 O2 Sat by Pulse 90 90 100 Oximetry 10/15/20 10/15/20 10/15/20 05:00 05:27 05:40 Temperature 98.3 F 98.3 F Pulse Rate 92 H 91 H 89 Respiratory 16 18 14 Rate Respiratory Rate [Lower Posterior Generalized] Blood Pressure 109/54 109/54 109/54 O2 Sat by Pulse 92 94 98 Oximetry 10/15/20 10/15/20 10/15/20 05:58 06:00 06:10 Temperature 98.3 F Pulse Rate 89 79 82 Respiratory 18 14 Rate Respiratory Rate [Lower Posterior Generalized] Blood Pressure 138/62 138/82 O2 Sat by Pulse 98 96 Oximetry 10/15/20 07:27 Temperature 98.3 F Pulse Rate 82 Respiratory 14 Rate Respiratory Rate [Lower Posterior Generalized] Blood Pressure 138/82 O2 Sat by Pulse 96 Oximetry - Laboratory Findings CBC and BMP: 10/15/20 07:03 10/15/20 07:03 Abnormal Lab Findings: Abnormal Labs 10/12/20 10/12/20 10/13/20 08:37 08:37 03:54 WBC 11.7 H MCHC 35 H Lymph % (Auto) 13.0 L 8.8 L Lymph # (Auto) 1.0 L Seg Neutrophils % 79.1 H 87.0 H Seg Neutrophils # 10.2 H Carbon Dioxide 21 L BUN Creatinine 0.6 L Glucose 105 H POC Glucose Total Creatine Kinase 192 H 10/13/20 10/13/20 10/15/20 03:54 11:40 07:03 WBC 14.7 H MCHC Lymph % (Auto) Lymph # (Auto) Seg Neutrophils % Seg Neutrophils # Carbon Dioxide 18 L BUN 23 H Creatinine Glucose 118 H POC Glucose 153 H Total Creatine Kinase 10/15/20 07:03 WBC MCHC Lymph % (Auto) Lymph # (Auto) Seg Neutrophils % Seg Neutrophils # Carbon Dioxide BUN 29 H Creatinine 0.7 L Glucose 115 H POC Glucose Total Creatine Kinase
[2020-10-15] MEDS: DOCUSATE SODIUM 100 MG CAP PO SCH (10:03)
[2020-10-15] MEDS: amLODIPine 5 MG TAB PO SCH (10:03)
[2020-10-15] MEDS: LOSARTAN 25 MG TAB PO SCH (10:05)
[2020-10-15] MEDS: FAMOTIDINE 20 MG TAB PO SCH (10:05)
[2020-10-15] MEDS ORDERED: HYDROmorphone 1 MG/1 ML INJ ONE (10:46)
[2020-10-15] MEDS ORDERED: SODIUM CHLORIDE 0.9% IRR 1,500 ML BOTTLE IR ONE (11:19)
[2020-10-15] MEDS ORDERED: BUPIVACAINE/PF (0.5%) 5 MG/1 ML 30 ML VIAL INFILTRATI ONE (11:20)
[2020-10-15] MEDS ORDERED: GENTAMICIN 40 MG/ML VIAL 2 ML IV ONE (11:21)
[2020-10-15] MEDS ORDERED: VANCOMYCIN 1000 MG INJ ONE (11:31)
[2020-10-15] MEDS ORDERED: VANCOMYCIN 1,000 MG/20 ML IV ONE (11:40)
[2020-10-15] MEDS ORDERED: SODIUM CHLORIDE 0.9% 100 ML ONE ×2 (11:54→12:58)
[2020-10-15] MEDS ORDERED: PHENYLEPHRINE/NS 1,000 MCG/10 ML SYRINGE (OR USE) IV ONE (11:54)
[2020-10-15] MEDS ORDERED: PHENYLEPHRINE 10 MG/1 ML INJ SDV ONE ×2 (11:54→12:58)
[2020-10-15] MEDS ORDERED: dexAMETHasone 20 MG/5 ML VIAL ONE (11:54)
[2020-10-15] MEDS ORDERED: ONDANSETRON 4 MG/2 ML INJ ONE (11:55)
[2020-10-15] MEDS ORDERED: SODIUM CHLORIDE 0.9% 1000 ML 1,000 ML ONE (12:58)
--- NOTE | 2020-10-15 12:58 | Post Operative Note ---
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
--- NOTE | 2020-10-15 13:48 | Post Anesthesia Evaluation ---
- Post Anesthesia Evaluation Patient Participated: Yes Airway Patent: Yes Stable Respiratory Function: Yes Nausea/Vomiting: No Temp > 96.8F: Yes Pain Manageable: Yes Adequeate Hydration: Yes Anesthesia Complications: No Block Receding Appropriately: Not Applicable Patient on Ventilator: No
--- NOTE | 2020-10-15 13:57 | XRay Report ---
XR spine cervical 2-3V INDICATION / CLINICAL INFORMATION: CERVICAL FUSION DONE IN OR 12. COMPARISON: None available. FINDINGS: 2 intraoperative fluoroscopic images are submitted. These document posterior fusion of C1-C5. Please see operative note for specifics. No professional interpretation is rendered. Fluoroscopy time: 1 minute 11 seconds. Fluoroscopic images: 2. IMPRESSION: Intraoperative fluoroscopic images submitted during posterior fusion extending from C1 to C5. Signer Name: Dale Palacios MD Signed: 10/15/2020 1:53 PM Workstation Name: [id number]
--- NOTE | 2020-10-15 14:06 | Progress Note ---
Assessment and Plan Unstable cervical spine (lytic lesions) Metastatic disease Lung Mass (right lung) Hypertension Metabolic acidosis - to receive post-op platelets - continue RTC C-collar use post-op - await pathology report of C-spine lesion before Lung Mass biopsy as may be diagnostic - if needs lung biopsy, CT guided approach better re: Unstable c-spine issues - continue care as nelow otherwise; - neurochecks per neurosurgeon - prn supplemental oxygen to keep O2 sats > 90% - prn bronchodilators (LAURI & LABA) with pulm hygiene per RT - continue systemic steroids re: cord edema - avoid nephrotoxins, renally dose all medications - continue mobility protocols to prevent pressure ulcers - PT/OT as tolerated - Wound care per RN/WCT - accuchecks with glycemic control per SSI for target blood glucose < 180 mg/dL - tobacco abstinence strongly counseled at the bedside - home oxygen evaluation at discharge - GI & VTE prophylaxis - Flu & pneumovax per protocol - Pulmonary out patient follow up for PFTs and optimization of respiratory status - continue other care per attending / other consultants - prn analgesia per pain score ... re-evaluate in am & prn Subjective Date of service: 10/15/20 Principal diagnosis: Cord compression syn / Unstable C-spine; R. Lung Mass; HTN; Met. Acidosis Interval history: Patient is seen today for: Unstable cervical spine; R. Lung Mass; Hypertension; Metabolic acidosis Seen and examined at bedside; 24hour events reviewed; nursing and respiratory care staff consulted; no adverse overnight events reported to me; resting in bed; s/p C-spine surgery with tissue sampling for likely metastatic CA Objective Vital Signs - 12hr 10/15/20 10/15/20 10/15/20 02:51 03:00 03:22 Temperature 98.8 F Pulse Rate 72 74 Respiratory 19 Rate Blood Pressure 169/72 170/63 O2 Sat by Pulse 92 Oximetry 10/15/20 10/15/20 10/15/20 04:01 04:41 04:53 Temperature 98.8 F 98.3 F Pulse Rate 91 H 91 H 92 H Respiratory 15 15 14 Rate Blood Pressure 128/57 128/57 128/57 O2 Sat by Pulse 90 90 100 Oximetry 10/15/20 10/15/20 10/15/20 05:00 05:27 05:40 Temperature 98.3 F 98.3 F Pulse Rate 92 H 91 H 89 Respiratory 16 18 14 Rate Blood Pressure 109/54 109/54 109/54 O2 Sat by Pulse 92 94 98 Oximetry 10/15/20 10/15/20 10/15/20 05:58 06:00 06:10 Temperature 98.3 F Pulse Rate 89 79 82 Respiratory 18 14 Rate Blood Pressure 138/62 138/82 O2 Sat by Pulse 98 96 Oximetry 10/15/20 10/15/20 10/15/20 07:13 07:27 08:05 Temperature 97.8 F 98.3 F Pulse Rate 92 H 82 Respiratory 20 14 20 Rate Blood Pressure 153/65 138/82 O2 Sat by Pulse 97 96 Oximetry 10/15/20 10/15/20 13:10 13:30 Temperature Pulse Rate Respiratory 20 16 Rate Blood Pressure O2 Sat by Pulse Oximetry Constitutional: no acute distress Eyes: non-icteric ENT: oropharynx moist Neck: supple, no lymphadenopathy, no JVD, other (C-collar in place) Effort: normal Ascultation: Bilateral: clear, diminished breath sounds Percussion: Bilateral: not dull Cardiovascular: regular rate and rhythm Gastrointestinal: normoactive bowel sounds, soft, non-tender, non-distended Integumentary: normal Extremities: no cyanosis, no edema, pulses normal, no ischemia or petechiae Neurologic: pupils equal and round, CN II-XII normal, other (improved upper extremity power) Psychiatric: mood appropriate, affect normal CBC and BMP: 10/16/20 05:30 10/16/20 05:30 ABG, PT/INR, D-dimer: PT/INR, D-dimer PT 13.9 Sec. (12.2-14.9) 10/14/20 16:28 INR 1.01 (0.87-1.13) 10/14/20 16:28 Abnormal lab findings: Abnormal Labs 10/12/20 10/12/20 10/13/20 08:37 08:37 03:54 WBC 11.7 H MCHC 35 H Lymph % (Auto) 13.0 L 8.8 L Lymph # (Auto) 1.0 L Seg Neutrophils % 79.1 H 87.0 H Seg Neutrophils # 10.2 H Carbon Dioxide 21 L BUN Creatinine 0.6 L Glucose 105 H POC Glucose Total Creatine Kinase 192 H 10/13/20 10/13/2010/15/21 03:54 11:40 07:03 WBC 14.7 H MCHC Lymph % (Auto) Lymph # (Auto) Seg Neutrophils % Seg Neutrophils # Carbon Dioxide 18 L BUN 23 H Creatinine Glucose 118 H POC Glucose 153 H Total Creatine Kinase 10/15/20 07:03 WBC MCHC Lymph % (Auto) Lymph # (Auto) Seg Neutrophils % Seg Neutrophils # Carbon Dioxide BUN 29 H Creatinine 0.7 L Glucose 115 H POC Glucose Total Creatine Kinase Allied health notes reviewed: nursing
[2020-10-15] MEDS: methylPREDNISolone Sod Succinate 40 MG/1 ML INJ IV SCH ×2 (14:34→21:25)
--- NOTE | 2020-10-15 14:34 | Progress Note ---
Assessment and Plan Assessment and plan: 75 yo male with HTN admitted with severe cervical stenosis and cord compression 2/2 C3 lytic lesion with dorsal epidural space mass, metastatic disease, lung mass, metabolic acidosis Past Medical History: hypertension Past Surgical History: No surgical history Social history: , lives with family. denies: smoking, alcohol abuse (he drinks 1-2 beers daily), prescription drug abuse Home meds: mobic, tizandine, desyrel, amlodipine, losartan, rosuvastatin Neuro: Severe cervical stenosis and cord compression 2/2 C3 lytic lesion with dorsal epidural space mass -Neurosurgery consulted, appreciate recommendations -C-collar per neurosurgery -10/15 s/p C1-5 fusion, C3 laminectomy for removal of dorsal epidural tumor (dorsal soft tissue mass sent to pathology for permanent specimen) -2 units platelet to be transfused on 10/15 AM -Neurosurgery request 2 units of platelets to be transfused postop -Every hour neurochecks -IV Decadron, prn Dilaudid and oxycodone -Aspiration/fall/seizure precautions -10/12 CT C-spine shows lytic lesion involving C3 vertebral body, posterior elements and 3 cm right middle lung zone lung mass concerning for primary lung cancer -Ceflazoin post op Cardio: SR, h/o HTN, CAD -resume home amlodipine, losartan -As needed hydralazine -Blood pressure monitor per protocol -uses home Aspirin -Resume home statin Respiratory: R lung mass -Supplemental oxygen as needed -Pulmonary hygiene -10/12 CT chest shows large mass within the right upper lung -f/u outpt GI: NAD -PPI: Pepcid -Diet: Cardiac diet -SSI, Accu-Cheks AC at bedtime -Bowel regimen: Colace -Avoid hypoglycemia : NAD -Condom catheter in place -24 hours net -1110 Heme: Leukocytosis -Patient is on Decadron -Transfuse for hemoglobin less than 7 -2 units platelets preop requested by neurosurgery -Trend CBC -SCDs to BLE while in bed -Chemical prophylaxis per nsgy ID: NAD, afebrile Slight leukocytosis however the patient is on Decadron Dispo: ICU Full code The high probability of a clinically significant, sudden or life threatening deterioration of the [neuro] system(s) required my full and direct attention, intervention and personal management. The aggregate critical care time was [60] minutes. This time is in addition to time spent performing reported procedures but includes the following: [x] Data Review and interpretation [x] Patient assessment and monitoring of vital signs [x] Documentation [x] Medication orders and management Disposition Plan: icu Total Time Spent with Patient (Minutes): 60 History Interval history: This is a 75 YO Male with HTN who presented to ED for evaluation for complains of " I am hurting and I cannot walk", generalized weakness over the past 2 weeks with acutely worsening symptoms over the past 3 days, bilateral upper extremity muscle spasms, neck pain, inability to hold objects in either hand and is unable to care for himself currently bedbound, nonambulatory, requires 6/6 assistance with activities of daily living and has a palliative performance score 30%. Patient underwent CT scan of the chest and was found to have a right lung lesion suspected to be a right lung malignancy with suspected metastatic disease to the spine complicated by cord compression syndrome. Tele neurology team, neurosurgery and critical care team consulted in the emergency department. Patient admitted to ICU due to increased risk of worsening symptoms. Patient treated with IV steroid therapy, supportive care. 10/14: No acute events reported overnight, patient continues to refuse c-collar, scheduled for [facility] neurosurgery, 2 units plts preop. 10/15: Received 2 units plts preop, s/p C1-5 fusion, C3 laminectomy for removal of dorsal epidural tumor with nsgy, c-collar in place. CIWA protocol initiated overnight for agitation. Hospitalist Physical - Constitutional Vitals: Temp Pulse Resp BP Pulse Ox 98.3 F 82 16 138/82 96 10/15/20 07:27 10/15/20 07:27 10/15/20 13:30 10/15/20 07:27 10/15/20 07:27 General appearance: Present: no acute distress, well-nourished - EENT Eyes: Present: PERRL - Respiratory Respiratory effort: normal - Cardiovascular Rhythm: regular - Abdominal General gastrointestinal: soft, non-tender, non-distended - Integumentary Integumentary: Present: warm, dry - Psychiatric Psychiatric: cooperative - Neurologic Neurologic: focal deficits (weakness to extremites) - Allied Health Allied health notes reviewed: nursing, social work Results - Labs CBC & Chem 7: 10/15/20 07:03 10/15/20 07:03 Labs: Laboratory Last Values WBC 14.7 K/mm3 (4.5-11.0) H 10/15/20 07:03 RBC 4.57 M/mm3 (3.65-5.03) 10/15/20 07:03 Hgb 13.3 gm/dl (11.8-15.2) 10/15/20 07:03 Hct 40.4 % (35.5-45.6) 10/15/20 07:03 MCV 88 fl (84-94) 10/15/20 07:03 MCH 29 pg (28-32) 10/15/20 07:03 MCHC 33 % (32-34) 10/15/20 07:03 RDW 14.7 % (13.2-15.2) 10/15/20 07:03 Plt Count 335 K/mm3 (140-440) 10/15/20 07:03 Lymph % (Auto) 8.8 % (13.4-35.0) L 10/13/20 03:54 [place] % (Auto) 4.0 % (0.0-7.3) 10/13/20 03:54 Eos % (Auto) 0.0 % (0.0-4.3) 10/13/20 03:54 Baso % (Auto) 0.2 % (0.0-1.8) 10/13/20 03:54 Lymph # (Auto) 1.0 K/mm3 (1.2-5.4) L 10/13/20 03:54 [place] # (Auto) 0.5 K/mm3 (0.0-0.8) 10/13/20 03:54 Eos # (Auto) 0.0 K/mm3 (0.0-0.4) 10/13/20 03:54 Baso # (Auto) 0.0 K/mm3 (0.0-0.1) 10/13/20 03:54 Seg Neutrophils % 87.0 % (40.0-70.0) H 10/13/20 03:54 Seg Neutrophils # 10.2 K/mm3 (1.8-7.7) H 10/13/20 03:54 PT 13.9 Sec. (12.2-14.9) 10/14/20 16:28 INR 1.01 (0.87-1.13) 10/14/20 16:28 APTT 26.2 Sec. (24.2-36.6) 10/12/20 08:37 Sodium 137 mmol/L (137-145) 10/15/20 07:03 Potassium 4.5 mmol/L (3.6-5.0) 10/15/20 07:03 Chloride 101.0 mmol/L (98-107) 10/15/20 07:03 Carbon Dioxide 24 mmol/L (22-30) 10/15/20 07:03 Anion Gap 17 mmol/L 10/15/20 07:03 BUN 29 mg/dL (9-20) H 10/15/20 07:03 Creatinine 0.7 mg/dL (0.8-1.3) L 10/15/20 07:03 Estimated GFR > 60 ml/min 10/15/20 07:03 BUN/Creatinine Ratio 41 % 10/15/20 07:03 Glucose 115 mg/dL (75-100) H 10/15/20 07:03 POC Glucose 103 mg/dL (70-105) 10/14/20 23:51 Calcium 9.5 mg/dL (8.4-10.2) 10/15/20 07:03 Magnesium 2.00 mg/dL (1.7-2.3) 10/12/20 08:37 Total Bilirubin 0.60 mg/dL (0.1-1.2) 10/13/20 03:54 AST 23 units/L (5-40) 10/13/20 03:54 ALT 28 units/L (7-56) 10/13/20 03:54 Alkaline Phosphatase 115 units/L (35-129) 10/13/20 03:54 Total Creatine Kinase 192 units/L (55-170) H 10/12/20 08:37 Total Protein 7.9 g/dL (6.3-8.2) 10/13/20 03:54 Albumin 4.6 g/dL (3.9-5) 10/13/20 03:54 Albumin/Globulin Ratio 1.4 % 10/13/20 03:54 Blood Type A POSITIVE 10/14/20 10:27 Antibody Screen Negative 10/14/20 10:27 Das/IV: Voiding Method Condom Catheter Active Medications - Current Medications Current Medications: Generic Name Dose Route Start Last Admin Trade Name Freq PRN Reason Stop Dose Admin Acetaminophen 650 mg 10/12/20 13:18 Acetaminophen 325 Mg Tab PO Q6H PRN Pain MILD(1-3)/Fever >100.5/SAENZ Acetaminophen 650 mg 10/15/20 08:00 10/15/20 08:05 Acetaminophen 325 Mg Tab PO 10/15/20 23:59 650 mg ONCE NR Administration Albuterol 2.5 mg 10/12/20 13:18 Albuterol 2.5 Mg/3 Ml Nebu IH Q3HRT PRN Shortness Of Breath Amlodipine Besylate 5 mg 10/13/20 10:00 10/14/20 09:30 Amlodipine 5 Mg Tab PO 5 mg DAILY MIGUELINA Administration Atorvastatin Calcium 40 mg 10/14/20 22:00 10/14/20 21:00 Atorvastatin 40 Mg Tab PO 40 mg QHS MIGUELINA Administration Carisoprodol 350 mg 10/15/20 07:34 10/15/20 08:05 Carisoprodol 350 Mg Tab PO 10/15/20 23:59 350 mg ONCE NR Administration Dextrose 50 ml 10/14/20 07:55 Dextrose 50% In Water (25gm) 50 Ml Syringe IV Q30MIN PRN Hypoglycemia Protocol Docusate Sodium 100 mg 10/14/20 22:00 10/14/20 21:00 Docusate Sodium 100 Mg Cap PO 100 mg BID MIGUELINA Administration Famotidine 20 mg 10/13/20 10:00 10/14/20 09:30 Famotidine 20 Mg Tab PO 20 mg QDAY MIGUELINA Administration Hydralazine HCl 10 mg 10/12/20 21:26 10/15/20 02:51 Hydralazine 20 Mg/1 Ml Inj IV 10 mg Q4HR PRN Administration Blood Pressure Hydromorphone HCl 0.5 mg 10/12/20 13:18 10/15/20 01:08 Hydromorphone 1 Mg/1 Ml Inj IV 0.5 mg Q3H PRN Administration Pain , Severe (7-10) Hydromorphone HCl 0.25 mg 10/15/20 07:32 Hydromorphone 1 Mg/1 Ml Inj IV Q10MIN PRN Pain, Moderate (4-6) Hydromorphone HCl 0.5 mg 10/15/20 07:32 10/15/20 13:30 Hydromorphone 1 Mg/1 Ml Inj IV 0.5 mg Q10MIN PRN Administration Pain , Severe (7-10) Sodium Chloride 1,000 mls @ 42 mls/hr 10/12/20 13:30 10/15/20 07:45 Nacl 0.9% 1000 Ml IV 42 mls/hr DIRECT MIGUELINA Administration Sodium Chloride 500 mls @ 0 mls/hr 10/15/20 06:00 Nacl 0.9% 500 Ml IV 10/15/20 23:59 ONCE NR As Directed Insulin Human Lispro 0 unit 10/14/20 11:30 10/14/20 21:12 Insulin Lispro 100 Unit/Ml SUB-Q Not Given ACHS MIGUELINA Protocol Lorazepam 2 mg 10/15/20 03:14 10/15/20 03:34 Lorazepam 2 Mg/Ml Vial IV 2 mg Q1H PRN Administration CIWA-Ar 8-15 Lorazepam 4 mg 10/15/20 03:14 Lorazepam 2 Mg/Ml Vial IV Q1H PRN CIWA-Ar 16-25 Losartan Potassium 25 mg 10/13/20 10:00 10/14/20 09:29 Losartan 25 Mg Tab PO 25 mg QDAY MIGUELINA Administration Magnesium Oxide 400 mg 10/15/20 07:32 10/15/20 08:05 Magnesium Oxide 400 Mg Tab PO 10/15/20 23:59 400 mg ONCE NR Administration Methylprednisolone Sodium Succinate 40 mg 10/12/20 14:00 10/14/20 21:00 Methylprednisolone Sod Succinate 40 Mg/1 Ml Inj IV 40 mg Q8HR MIGUELINA Administration Midazolam HCl 2 mg 10/15/20 08:00 Midazolam 2 Mg/2 Ml Inj IV 10/15/20 23:59 PREOP NR Ondansetron HCl 4 mg 10/15/20 07:32 Ondansetron 4 Mg/2 Ml Inj IV 10/15/20 23:59 ONCE PRN Nausea And Vomiting Oxycodone/Acetaminophen 1 tab 10/12/20 13:18 10/14/20 22:40 Oxycodone /Acetaminophen 5-325mg Tab PO 1 tab Q6H PRN Administration Pain, Moderate (4-6) Sodium Chloride 10 ml 10/12/20 22:00 10/14/20 21:00 Sodium Chloride 0.9% 10 Ml Flush Syringe IV 10 ml BID MIGUELINA Administration Sodium Chloride 10 ml 10/12/20 13:18 Sodium Chloride 0.9% 10 Ml Flush Syringe IV PRN PRN LINE FLUSH
[2020-10-15] MEDS ORDERED: ceFAZolin/Water 2 GM/20 ML 2 GM/20 ML SYRINGE IV SCH (14:50)
[2020-10-15] MEDS ORDERED: amLODIPine 5 MG TAB PO ONE (16:00)
[2020-10-16] MEDS: HYDROmorphone 1 MG/1 ML INJ IV PRN ×5 (03:47→22:30)
[2020-10-16] MEDS: methylPREDNISolone Sod Succinate 40 MG/1 ML INJ IV SCH ×4 (05:30→23:25)
[2020-10-16 06:24] LABS: Hematocrit 36.9 % (35.5-45.6); Hemoglobin 12.3 gm/dl (11.8-15.2); Mean Corpuscular HGB Conc 33 % (32-34); Mean Corpuscular Volume 88 fl (84-94); Platelet Count 297 K/mm3 (140-440); Red Blood Count 4.17 M/mm3 (3.65-5.03); Red Cell Distribution Width 14.9 % (13.2-15.2)
[2020-10-16 06:46] LABS: Blood Urea Nitrogen 22 mg/dL (9-20); Calcium 8.3 mg/dL (8.4-10.2); Hemolysis Index 1
[2020-10-16 06:52] LABS: BUN/Creatinine Ratio 31
[2020-10-16] MEDS: INSULIN LISPRO 100 UNIT/ML SUB-Q SCH ×4 (09:55→23:19)
[2020-10-16] MEDS: DOCUSATE SODIUM 100 MG CAP PO SCH ×3 (09:55→23:25)
[2020-10-16] MEDS: FAMOTIDINE 20 MG TAB PO SCH (09:58)
[2020-10-16] MEDS: amLODIPine 10 MG TAB PO SCH (09:58)
[2020-10-16] MEDS ORDERED: LOSARTAN 50 MG TAB PO SCH (10:00)
--- NOTE | 2020-10-16 10:31 | Progress Note ---
Assessment and Plan Unstable cervical spine (lytic lesions) Metastatic disease Lung Mass (right lung) Hypertension Metabolic acidosis - to receive post-op platelets - continue to encourage C-collar use - await pathology report of C-spine lesion before Lung Mass biopsy as may be diagnostic - if needs lung biopsy, CT guided approach better re: Unstable c-spine issues - continue care as nelow otherwise; - neurochecks per neurosurgeon - prn supplemental oxygen to keep O2 sats > 90% - prn bronchodilators (LAURI & LABA) with pulm hygiene per RT - continue systemic steroids re: cord edema - avoid nephrotoxins, renally dose all medications - continue mobility protocols to prevent pressure ulcers - PT/OT as tolerated - Wound care per RN/WCT - accuchecks with glycemic control per SSI for target blood glucose < 180 mg/dL - tobacco abstinence strongly counseled at the bedside - home oxygen evaluation at discharge - GI & VTE prophylaxis - Flu & pneumovax per protocol - Pulmonary out patient follow up for PFTs and optimization of respiratory status - continue other care per attending / other consultants - prn analgesia per pain score ... re-evaluate in am & prn Subjective Date of service: 10/16/20 Principal diagnosis: Cord compression syn / Unstable C-spine; R. Lung Mass; HTN; Met. Acidosis Interval history: Patient is seen today for: Unstable cervical spine; R. Lung Mass; Hypertension; Metabolic acidosis Seen and examined at bedside; 24hour events reviewed; nursing and respiratory care staff consulted; no adverse overnight events reported to me; resting in bed; Objective Vital Signs - 12hr 10/15/20 10/15/20 10/15/20 22:39 23:00 23:26 Temperature 99.8 F H 99.8 F H Pulse Rate 84 85 84 Respiratory 13 13 13 Rate Blood Pressure 153/70 159/66 159/75 O2 Sat by Pulse 97 97 97 Oximetry 10/15/20 10/16/20 10/16/20 23:49 00:00 01:00 Temperature 99.7 F H Pulse Rate 102 H 76 Respiratory 23 11 L Rate Blood Pressure 167/81 155/69 O2 Sat by Pulse 95 97 Oximetry 10/16/20 10/16/20 10/16/20 02:00 03:00 04:00 Temperature 99.8 F H Pulse Rate 83 82 64 Respiratory 16 22 12 Rate Blood Pressure 157/73 154/64 154/53 O2 Sat by Pulse 95 95 93 Oximetry 10/16/20 10/16/20 10/16/20 04:01 05:00 06:00 Temperature Pulse Rate 71 84 73 Respiratory 12 13 Rate Blood Pressure 165/77 147/65 O2 Sat by Pulse 95 95 Oximetry 10/16/20 10/16/20 10/16/20 07:00 07:50 07:54 Temperature 99.2 F Pulse Rate 86 Respiratory 15 Rate Blood Pressure 170/76 O2 Sat by Pulse 92 98 Oximetry 10/16/20 10/16/20 10/16/20 08:00 09:00 09:57 Temperature Pulse Rate 79 67 90 Respiratory 22 15 Rate Blood Pressure 164/67 159/61 159/61 O2 Sat by Pulse 94 95 Oximetry Constitutional: no acute distress Eyes: non-icteric ENT: oropharynx moist Neck: supple, no lymphadenopathy, no JVD Effort: normal Ascultation: Bilateral: clear, diminished breath sounds Percussion: Bilateral: not dull Cardiovascular: regular rate and rhythm Gastrointestinal: normoactive bowel sounds, soft, non-tender, non-distended Integumentary: normal Extremities: no cyanosis, no edema, pulses normal, no ischemia or petechiae Neurologic: pupils equal and round, CN II-XII normal, other (improved upper extremity power) Psychiatric: mood appropriate, affect normal CBC and BMP: 10/16/20 05:30 10/16/20 05:30 ABG, PT/INR, D-dimer: PT/INR, D-dimer PT 13.9 Sec. (12.2-14.9) 10/14/20 16:28 INR 1.01 (0.87-1.13) 10/14/20 16:28 Abnormal lab findings: Abnormal Labs 10/12/20 10/12/20 10/13/20 08:37 08:37 03:54 WBC 11.7 H MCHC 35 H Lymph % (Auto) 13.0 L 8.8 L Lymph # (Auto) 1.0 L Seg Neutrophils % 79.1 H 87.0 H Seg Neutrophils # 10.2 H Carbon Dioxide 21 L BUN Creatinine 0.6 L Glucose 105 H POC Glucose Calcium Total Creatine Kinase 192 H 10/13/20 10/13/20 10/15/20 03:54 11:40 07:03 WBC 14.7 H MCHC Lymph % (Auto) Lymph # (Auto) Seg Neutrophils % Seg Neutrophils # Carbon Dioxide 18 L BUN 23 H Creatinine Glucose 118 H POC Glucose 153 H Calcium Total Creatine Kinase 10/15/20 10/15/20 10/15/20 07:03 16:34 22:26 WBC MCHC Lymph % (Auto) Lymph # (Auto) Seg Neutrophils % Seg Neutrophils # Carbon Dioxide BUN 29 H Creatinine 0.7 L Glucose 115 H POC Glucose 107 H 106 H Calcium Total Creatine Kinase 10/16/20 10/16/20 10/16/20 05:30 05:30 07:44 WBC 17.6 H MCHC Lymph % (Auto) Lymph # (Auto) Seg Neutrophils % Seg Neutrophils # Carbon Dioxide BUN 22 H Creatinine 0.7 L Glucose 115 H POC Glucose 123 H Calcium 8.3 L Total Creatine Kinase Allied health notes reviewed: nursing
--- NOTE | 2020-10-16 12:17 | Progress Note ---
Assessment and Plan Unstable cervical spine (lytic lesions) Metastatic disease Lung Mass (right lung) Hypertension Metabolic acidosis - OK to d/c A-line per NSG - ok to transfer to step down unit per NSG - continue care as nelow otherwise; - continue RTC C-collar use post-op - await pathology report of C-spine lesion before Lung Mass biopsy as may be diagnostic - if needs lung biopsy, CT guided approach better re: Unstable c-spine issues - neurochecks per neurosurgeon - prn supplemental oxygen to keep O2 sats > 90% - prn bronchodilators (LAURI & LABA) with pulm hygiene per RT - continue systemic steroids re: cord edema - avoid nephrotoxins, renally dose all medications - continue mobility protocols to prevent pressure ulcers - PT/OT as tolerated - Wound care per RN/WCT - accuchecks with glycemic control per SSI for target blood glucose < 180 mg/dL - tobacco abstinence strongly counseled at the bedside - home oxygen evaluation at discharge - GI & VTE prophylaxis - Flu & pneumovax per protocol - Pulmonary out patient follow up for PFTs and optimization of respiratory status - continue other care per attending / other consultants - prn analgesia per pain score ... re-evaluate in am & prn Subjective Date of service: 10/16/20 Principal diagnosis: Cord compression syn / Unstable C-spine; R. Lung Mass; HTN; Met. Acidosis Interval history: Patient is seen today for: Unstable cervical spine; R. Lung Mass; Hypertension; Metabolic acidosis Seen and examined at bedside; 24hour events reviewed; nursing and respiratory care staff consulted; no adverse overnight events reported to me; resting in bed; no new issues; no new focal deficits; no gross bleeding Objective Vital Signs - 12hr 10/16/20 10/16/20 10/16/20 01:00 02:00 03:00 Temperature Pulse Rate 76 83 82 Respiratory 11 L 16 22 Rate Blood Pressure 155/69 157/73 154/64 O2 Sat by Pulse 97 95 95 Oximetry 10/16/20 10/16/20 10/16/20 04:00 04:01 05:00 Temperature 99.8 F H Pulse Rate 64 71 84 Respiratory 12 12 Rate Blood Pressure 154/53 165/77 O2 Sat by Pulse 93 95 Oximetry 10/16/20 10/16/20 10/16/20 06:00 07:00 07:50 Temperature Pulse Rate 73 86 Respiratory 13 15 Rate Blood Pressure 147/65 170/76 O2 Sat by Pulse 95 92 98 Oximetry 10/16/20 10/16/20 10/16/20 07:54 08:00 09:00 Temperature 99.2 F Pulse Rate 79 67 Respiratory 22 15 Rate Blood Pressure 164/67 159/61 O2 Sat by Pulse 99 95 Oximetry 10/16/20 10/16/20 10/16/20 09:57 10:00 11:00 Temperature Pulse Rate 90 81 72 Respiratory 15 16 Rate Blood Pressure 159/61 165/71 168/58 O2 Sat by Pulse 94 93 Oximetry Constitutional: no acute distress Eyes: non-icteric ENT: oropharynx moist Neck: supple, no lymphadenopathy, no JVD, other (C-collar in place) Effort: normal Ascultation: Bilateral: clear, diminished breath sounds Percussion: Bilateral: not dull Cardiovascular: regular rate and rhythm Gastrointestinal: normoactive bowel sounds, soft, non-tender, non-distended Integumentary: normal Extremities: no cyanosis, no edema, pulses normal, no ischemia or petechiae Neurologic: normal mental status, pupils equal and round, CN II-XII normal, other (improved upper extremity power) Psychiatric: mood appropriate, affect normal CBC and BMP: 10/16/20 05:30 10/16/20 05:30 ABG, PT/INR, D-dimer: PT/INR, D-dimer PT 13.9 Sec. (12.2-14.9) 10/14/20 16:28 INR 1.01 (0.87-1.13) 10/14/20 16:28 Abnormal lab findings: Abnormal Labs 10/12/20 10/12/20 10/13/20 08:37 08:37 03:54 WBC 11.7 H MCHC 35 H Lymph % (Auto) 13.0 L 8.8 L Lymph # (Auto) 1.0 L Seg Neutrophils % 79.1 H 87.0 H Seg Neutrophils # 10.2 H Carbon Dioxide 21 L BUN Creatinine 0.6 L Glucose 105 H POC Glucose Calcium Total Creatine Kinase 192 H 10/13/20 10/13/20 10/15/20 03:54 11:40 07:03 WBC 14.7 H MCHC Lymph % (Auto) Lymph # (Auto) Seg Neutrophils % Seg Neutrophils # Carbon Dioxide 18 L BUN 23 H Creatinine Glucose 118 H POC Glucose 153 H Calcium Total Creatine Kinase 10/15/20 10/15/20 10/15/20 07:03 16:34 22:26 WBC MCHC Lymph % (Auto) Lymph # (Auto) Seg Neutrophils % Seg Neutrophils # Carbon Dioxide BUN 29 H Creatinine 0.7 L Glucose 115 H POC Glucose 107 H 106 H Calcium Total Creatine Kinase 10/16/20 10/16/20 10/16/20 05:30 05:30 07:44 WBC 17.6 H MCHC Lymph % (Auto) Lymph # (Auto) Seg Neutrophils % Seg Neutrophils # Carbon Dioxide BUN 22 H Creatinine 0.7 L Glucose 115 H POC Glucose 123 H Calcium 8.3 L Total Creatine Kinase 10/16/20 11:43 WBC MCHC Lymph % (Auto) Lymph # (Auto) Seg Neutrophils % Seg Neutrophils # Carbon Dioxide BUN Creatinine Glucose POC Glucose 118 H Calcium Total Creatine Kinase Allied health notes reviewed: nursing
--- NOTE | 2020-10-16 12:45 | Progress Note ---
Assessment and Plan Assessment and plan: 75 yo male with HTN admitted with severe cervical stenosis and cord compression 2/2 C3 lytic lesion with dorsal epidural space mass, metastatic disease, lung mass, metabolic acidosis Past Medical History: hypertension Past Surgical History: No surgical history Social history: , lives with family. denies: smoking, alcohol abuse (he drinks 1-2 beers daily), prescription drug abuse Home meds: mobic, tizandine, desyrel, amlodipine, losartan, rosuvastatin Neuro: Severe cervical stenosis and cord compression 2/2 C3 lytic lesion with dorsal epidural space mass -Neurosurgery consulted, appreciate recommendations -C-collar per neurosurgery -10/15 s/p C1-5 fusion, C3 laminectomy for removal of dorsal epidural tumor (dorsal soft tissue mass sent to pathology for permanent specimen) -s/p 4 units platelets -Every 4 hour neurochecks -IV Decadron, prn Dilaudid and oxycodone -Aspiration/fall/seizure precautions -10/12 CT C-spine shows lytic lesion involving C3 vertebral body, posterior elements and 3 cm right middle lung zone lung mass concerning for primary lung cancer -Ceflazoin post op -CIWA protocol -Patient c/o weakness to B UE/LE, tingling to BUE Cardio: SR, h/o HTN, CAD -resume home amlodipine, losartan -As needed hydralazine -Blood pressure monitor per protocol -uses home Aspirin -Resume home statin Respiratory: R lung mass -Supplemental oxygen as needed -Pulmonary hygiene -10/12 CT chest shows large mass within the right upper lung -f/u outpt GI: NAD -PPI: Pepcid -Diet: Cardiac diet -SSI, Accu-Cheks AC at bedtime -Bowel regimen: Colace -Avoid hypoglycemia : NAD -Condom catheter in place -24 hours net -1110 Heme: Leukocytosis -Patient is on Decadron -Transfuse for hemoglobin less than 7 -Trend CBC -SCDs to BLE while in bed -Chemical prophylaxis per nsgy ID: NAD, afebrile -Slight leukocytosis however the patient is on Decadron Dispo: Transfer to floor Full code The high probability of a clinically significant, sudden or life threatening deterioration of the [neuro] system(s) required my full and direct attention, intervention and personal management. The aggregate critical care time was [60] minutes. This time is in addition to time spent performing reported procedures but includes the following: [x] Data Review and interpretation [x] Patient assessment and monitoring of vital signs [x] Documentation [x] Medication orders and management History Interval history: This is a 75 YO Male with HTN who presented to ED for evaluation for complains of " I am hurting and I cannot walk", generalized weakness over the past 2 weeks with acutely worsening symptoms over the past 3 days, bilateral upper extremity muscle spasms, neck pain, inability to hold objects in either hand and is unable to care for himself currently bedbound, nonambulatory, requires 6/6 assistance with activities of daily living and has a palliative performance score 30%. Patient underwent CT scan of the chest and was found to have a right lung lesion suspected to be a right lung malignancy with suspected metastatic disease to the spine complicated by cord compression syndrome. Tele neurology team, neurosurgery and critical care team consulted in the emergency department. Patient admitted to ICU due to increased risk of worsening symptoms. Patient treated with IV steroid therapy, supportive care. 10/14: No acute events reported overnight, patient continues to refuse c-collar, scheduled for [facility] neurosurgery, 2 units plts preop. 10/15: Received 2 units plts preop, s/p C1-5 fusion, C3 laminectomy for removal of dorsal epidural tumor with nsgy, c-collar in place. CIWA protocol initiated overnight for agitation. 10/16: PEr nsgy ok to transfer to floor. No acute events overnight Hospitalist Physical - Constitutional Vitals: Temp Pulse Resp BP Pulse Ox 98.6 F 72 16 168/58 93 10/16/20 12:00 10/16/20 11:10/16/20 11:00 10/16/20 11:10/16/20 11:00 General appearance: Present: no acute distress, well-nourished, obese - EENT Eyes: Present: PERRL ENT: poor dentition - Neck Neck: Present: other (c-collar in place) - Respiratory Respiratory effort: normal Respiratory: bilateral: diminished - Cardiovascular Rhythm: regular Heart Sounds: Present: S1 & S2. Absent: systolic murmur, diastolic murmur - Extremities Extremities: no ischemia, pulses intact, pulses symmetrical Peripheral Pulses: within normal limits - Abdominal General gastrointestinal: soft, non-tender, non-distended, normal bowel sounds - Integumentary Integumentary: Present: warm, dry - Psychiatric Psychiatric: cooperative - Neurologic Neurologic: moves all extremities - Allied Health Allied health notes reviewed: nursing, RT, social work Results - Labs CBC & Chem 7: 10/16/20 05:30 10/16/20 05:30 Labs: Laboratory Last Values WBC 17.6 K/mm3 (4.5-11.0) H 10/16/20 05:30 RBC 4.17 M/mm3 (3.65-5.03) 10/16/20 05:30 Hgb 12.3 gm/dl (11.8-15.2) 10/16/20 05:30 Hct 36.9 % (35.5-45.6) 10/16/20 05:30 MCV 88 fl (84-94) 10/16/20 05:30 MCH 30 pg (28-32) 10/16/20 05:30 MCHC 33 % (32-34) 10/16/20 05:30 RDW 14.9 % (13.2-15.2) 10/16/20 05:30 Plt Count 297 K/mm3 (140-440) 10/16/20 05:30 Lymph % (Auto) 8.8 % (13.4-35.0) L 10/13/20 03:54 [place] % (Auto) 4.0 % (0.0-7.3) 10/13/20 03:54 Eos % (Auto) 0.0 % (0.0-4.3) 10/13/20 03:54 Baso % (Auto) 0.2 % (0.0-1.8) 10/13/20 03:54 Lymph # (Auto) 1.0 K/mm3 (1.2-5.4) L 10/13/20 03:54 [place] # (Auto) 0.5 K/mm3 (0.0-0.8) 10/13/20 03:54 Eos # (Auto) 0.0 K/mm3 (0.0-0.4) 10/13/20 03:54 Baso # (Auto) 0.0 K/mm3 (0.0-0.1) 10/13/20 03:54 Seg Neutrophils % 87.0 % (40.0-70.0) H 10/13/20 03:54 Seg Neutrophils # 10.2 K/mm3 (1.8-7.7) H 10/13/20 03:54 PT 13.9 Sec. (12.2-14.9) 10/14/20 16:28 INR 1.01 (0.87-1.13) 10/14/20 16:28 APTT 26.2 Sec. (24.2-36.6) 10/12/20 08:37 Sodium 140 mmol/L (137-145) 10/16/20 05:30 Potassium 4.0 mmol/L (3.6-5.0) 10/16/20 05:30 Chloride 104.2 mmol/L (98-107) 10/16/20 05:30 Carbon Dioxide 25 mmol/L (22-30) 10/16/20 05:30 Anion Gap 15 mmol/L 10/16/20 05:30 BUN 22 mg/dL (9-20) H 10/16/20 05:30 Creatinine 0.7 mg/dL (0.8-1.3) L 10/16/20 05:30 Estimated GFR > 60 ml/min 10/16/20 05:30 BUN/Creatinine Ratio 31 % 10/16/20 05:30 Glucose 115 mg/dL (75-100) H 10/16/20 05:30 POC Glucose 118 mg/dL (70-105) H 10/16/20 11:43 Calcium 8.3 mg/dL (8.4-10.2) L 10/16/20 05:30 Magnesium 2.00 mg/dL (1.7-2.3) 10/12/20 08:37 Total Bilirubin 0.60 mg/dL (0.1-1.2) 10/13/20 03:54 AST 23 units/L (5-40) 10/13/20 03:54 ALT 28 units/L (7-56) 10/13/20 03:54 Alkaline Phosphatase 115 units/L (35-129) 10/13/20 03:54 Total Creatine Kinase 192 units/L (55-170) H 10/12/20 08:37 Total Protein 7.9 g/dL (6.3-8.2) 10/13/20 03:54 Albumin 4.6 g/dL (3.9-5) 10/13/20 03:54 Albumin/Globulin Ratio 1.4 % 10/13/20 03:54 Blood Type A POSITIVE 10/14/20 10:27 Antibody Screen Negative 10/14/20 10:27 Das/IV: Voiding Method Indwelling Catheter Active Medications - Current Medications Current Medications: Generic Name Dose Route Start Last Admin Trade Name Freq PRN Reason Stop Dose Admin Acetaminophen 650 mg 10/12/20 13:18 Acetaminophen 325 Mg Tab PO Q6H PRN Pain MILD(1-3)/Fever >100.5/SAENZ Albuterol 2.5 mg 10/12/20 13:18 Albuterol 2.5 Mg/3 Ml Nebu IH Q3HRT PRN Shortness Of Breath Amlodipine Besylate 10 mg 10/16/20 10:00 10/16/20 09:58 Amlodipine 10 Mg Tab PO 10 mg QDAY MIGUELINA Administration Atorvastatin Calcium 40 mg 10/14/20 22:00 10/16/20 09:55 Atorvastatin 40 Mg Tab PO Not Given QHS MIGUELINA Dextrose 50 ml 10/14/20 07:55 Dextrose 50% In Water (25gm) 50 Ml Syringe IV Q30MIN PRN Hypoglycemia Protocol Docusate Sodium 100 mg 10/14/20 22:00 10/16/20 09:58 Docusate Sodium 100 Mg Cap PO 100 mg BID MIGUELINA Administration Famotidine 20 mg 10/13/20 10:00 10/16/20 09:58 Famotidine 20 Mg Tab PO 20 mg QDAY MIGUELINA Administration Hydralazine HCl 10 mg 10/12/20 21:26 10/15/20 17:39 Hydralazine 20 Mg/1 Ml Inj IV 10 mg Q4HR PRN Administration Blood Pressure Hydromorphone HCl 0.5 mg 10/12/20 13:18 10/16/20 09:57 Hydromorphone 1 Mg/1 Ml Inj IV 0.5 mg Q3H PRN Administration Pain , Severe (7-10) Sodium Chloride 1,000 mls @ 42 mls/hr 10/12/20 13:30 10/15/20 07:45 Nacl 0.9% 1000 Ml IV 42 mls/hr DIRECT MIGUELINA Administration Cefazolin Sodium 2 gm/ Sodium 100 mls @ 200 mls/hr 10/16/20 04:30 10/16/20 04:38 Chloride IV 10/17/20 06:29 200 mls/hr Q8HR MIGUELINA Administration Insulin Human Lispro 0 unit 10/14/20 11:30 10/16/20 09:55 Insulin Lispro 100 Unit/Ml SUB-Q Not Given ACHS MIGUELINA Protocol Lorazepam 2 mg 10/15/20 03:14 10/15/20 03:34 Lorazepam 2 Mg/Ml Vial IV 2 mg Q1H PRN Administration CIWA-Ar 8-15 Lorazepam 4 mg 10/15/20 03:14 Lorazepam 2 Mg/Ml Vial IV Q1H PRN CIWA-Ar 16-25 Losartan Potassium 50 mg 10/16/20 10:00 10/16/20 09:57 Losartan 50 Mg Tab PO 50 mg QDAY MIGUELINA Administration Methylprednisolone Sodium Succinate 40 mg 10/12/20 14:00 10/16/20 09:56 Methylprednisolone Sod Succinate 40 Mg/1 Ml Inj IV Not Given Q8HR MIGUELINA Oxycodone/Acetaminophen 1 tab 10/12/20 13:18 10/14/20 22:40 Oxycodone /Acetaminophen 5-325mg Tab PO 1 tab Q6H PRN Administration Pain, Moderate (4-6) Sodium Chloride 10 ml 10/12/20 22:00 10/16/20 09:58 Sodium Chloride 0.9% 10 Ml Flush Syringe IV 10 ml BID MIGUELINA Administration Sodium Chloride 10 ml 10/12/20 13:18 Sodium Chloride 0.9% 10 Ml Flush Syringe IV PRN PRN LINE FLUSH
--- NOTE | 2020-10-16 12:52 | Progress Note ---
Assessment and Plan 75 y/o M POD1 s/p C1-5 fusion, removal of C3 dorsal epidural tumor Subjective Date of service: 10/16/20 Principal diagnosis: Cord compression syn / Unstable C-spine; R. Lung Mass; HTN; Met. Acidosis Interval history: CHADDEFUENTES; pt reports improvement in his arm and leg strength Objective - Exam Narrative Exam: [place] pt stable overnight A&Ox3 CNII-XII intact motor strength 4/5 throughout sensation diminished to light touch incision dressed drain patent - Vital Sign Vital Signs - 12hr 10/16/20 10/16/20 10/16/20 01:00 02:00 03:00 Temperature Pulse Rate 76 83 82 Respiratory 11 L 16 22 Rate Blood Pressure 155/69 157/73 154/64 O2 Sat by Pulse 97 95 95 Oximetry 10/16/20 10/16/20 10/16/20 04:00 04:01 05:00 Temperature 99.8 F H Pulse Rate 64 71 84 Respiratory 12 12 Rate Blood Pressure 154/53 165/77 O2 Sat by Pulse 93 95 Oximetry 10/16/20 10/16/20 10/16/20 06:00 07:00 07:50 Temperature Pulse Rate 73 86 Respiratory 13 15 Rate Blood Pressure 147/65 170/76 O2 Sat by Pulse 95 92 98 Oximetry 10/16/20 10/16/20 10/16/20 07:54 08:00 09:00 Temperature 99.2 F Pulse Rate 79 67 Respiratory 22 15 Rate Blood Pressure 164/67 159/61 O2 Sat by Pulse 99 95 Oximetry 10/16/20 10/16/20 10/16/20 09:57 10:00 11:00 Temperature Pulse Rate 90 81 72 Respiratory 15 16 Rate Blood Pressure 159/61 165/71 168/58 O2 Sat by Pulse 94 93 Oximetry 10/16/20 12:00 Temperature 98.6 F Pulse Rate Respiratory Rate Blood Pressure O2 Sat by Pulse Oximetry - Laboratory Findings CBC and BMP: 10/16/20 05:30 10/16/20 05:30 Abnormal Lab Findings: Abnormal Labs 10/12/20 10/12/20 10/13/20 08:37 08:37 03:54 WBC 11.7 H MCHC 35 H Lymph % (Auto) 13.0 L 8.8 L Lymph # (Auto) 1.0 L Seg Neutrophils % 79.1 H 87.0 H Seg Neutrophils # 10.2 H Carbon Dioxide 21 L BUN Creatinine 0.6 L Glucose 105 H POC Glucose Calcium Total Creatine Kinase 192 H 10/13/20 10/13/20 10/15/20 03:54 11:40 07:03 WBC 14.7 H MCHC Lymph % (Auto) Lymph # (Auto) Seg Neutrophils % Seg Neutrophils # Carbon Dioxide 18 L BUN 23 H Creatinine Glucose 118 H POC Glucose 153 H Calcium Total Creatine Kinase 10/15/20 10/15/20 10/15/20 07:03 16:34 22:26 WBC MCHC Lymph % (Auto) Lymph # (Auto) Seg Neutrophils % Seg Neutrophils # Carbon Dioxide BUN 29 H Creatinine 0.7 L Glucose 115 H POC Glucose 107 H 106 H Calcium Total Creatine Kinase 10/16/20 10/16/20 10/16/20 05:30 05:30 07:44 WBC 17.6 H MCHC Lymph % (Auto) Lymph # (Auto) Seg Neutrophils % Seg Neutrophils # Carbon Dioxide BUN 22 H Creatinine 0.7 L Glucose 115 H POC Glucose 123 H Calcium 8.3 L Total Creatine Kinase 10/16/20 11:43 WBC MCHC Lymph % (Auto) Lymph # (Auto) Seg Neutrophils % Seg Neutrophils # Carbon Dioxide BUN Creatinine Glucose POC Glucose 118 H Calcium Total Creatine Kinase
[2020-10-16] MEDS: hydrALAZINE 20 MG/1 ML INJ IV PRN (15:26)
[2020-10-16] MEDS: oxyCODONE /ACETAMINOPHEN 5-325MG TAB PO PRN ×2 (16:04→23:29)
[2020-10-17] MEDS: LORazepam 2 MG/ML VIAL IV PRN (00:44)
[2020-10-17] MEDS: methylPREDNISolone Sod Succinate 40 MG/1 ML INJ IV SCH ×3 (05:07→21:39)
[2020-10-17] MEDS: HYDROmorphone 1 MG/1 ML INJ IV PRN ×5 (05:07→21:40)
[2020-10-17 05:46] LABS: Hematocrit 38.4 % (35.5-45.6); Hemoglobin 12.7 gm/dl (11.8-15.2); Mean Corpuscular HGB Conc 33 % (32-34); Mean Corpuscular Volume 88 fl (84-94); Platelet Count 271 K/mm3 (140-440); Red Blood Count 4.36 M/mm3 (3.65-5.03); Red Cell Distribution Width 14.9 % (13.2-15.2)
[2020-10-17] MEDS: INSULIN LISPRO 100 UNIT/ML SUB-Q SCH ×4 (08:15→22:18)
[2020-10-17] MEDS: FAMOTIDINE 20 MG TAB PO SCH ×2 (08:40→10:00)
[2020-10-17] MEDS: DOCUSATE SODIUM 100 MG CAP PO SCH ×3 (08:40→21:39)
[2020-10-17] MEDS: VALSARTAN 160MG TAB PO SCH ×2 (08:41→10:00)
[2020-10-17] MEDS: amLODIPine 10 MG TAB PO SCH ×2 (08:42)
--- NOTE | 2020-10-17 14:13 | Progress Note ---
Assessment and Plan Assessment and plan: 75 yo male with HTN admitted with severe cervical stenosis and cord compression 2/2 C3 lytic lesion with dorsal epidural space mass, metastatic disease, lung mass, metabolic acidosis Past Medical History: hypertension Past Surgical History: No surgical history Social history: , lives with family. denies: smoking, alcohol abuse (he drinks 1-2 beers daily), prescription drug abuse Home meds: mobic, tizandine, desyrel, amlodipine, losartan, rosuvastatin Neuro: Severe cervical stenosis and cord compression 2/2 C3 lytic lesion with dorsal epidural space mass -Neurosurgery consulted, appreciate recommendations -C-collar per neurosurgery -10/15 s/p C1-5 fusion, C3 laminectomy for removal of dorsal epidural tumor (dorsal soft tissue mass sent to pathology for permanent specimen) -s/p 4 units platelets -Every 4 hour neurochecks -IV Decadron, prn Dilaudid and oxycodone -Aspiration/fall/seizure precautions -10/12 CT C-spine shows lytic lesion involving C3 vertebral body, posterior elements and 3 cm right middle lung zone lung mass concerning for primary lung cancer -Ceflazoin post op -CIWA protocol -Patient c/o weakness to B UE/LE, tingling to BUE Cardio: SR, h/o HTN, CAD -resume home amlodipine, losartan -As needed hydralazine -Blood pressure monitor per protocol -uses home Aspirin -Resume home statin Respiratory: R lung mass -Supplemental oxygen as needed -Pulmonary hygiene -10/12 CT chest shows large mass within the right upper lung -f/u outpt GI: NAD -PPI: Pepcid -Diet: Cardiac diet -SSI, Accu-Cheks AC at bedtime -Bowel regimen: Colace -Avoid hypoglycemia : NAD -Condom catheter in place -24 hours net -1110 Heme: Leukocytosis -Patient is on Decadron -Transfuse for hemoglobin less than 7 -Trend CBC -SCDs to BLE while in bed -Chemical prophylaxis per nsgy ID: NAD, afebrile -Slight leukocytosis however the patient is on Decadron Dispo: PT/OT evaluation occurring today. Patient still has drainage from GISSEL drain. Will follow along with neurosurgery for recommendations. Consult case management for discharge planning/placement. Full code History Interval history: 10/17/2020: No acute overnight events. Patient was working with physical therapy this morning. GISSEL drains noted to have some mild drainage about 1/4 full. No acute complaints otherwise other than pain which he is getting scheduled as needed pain medication for. 10/16: PEr nsgy ok to transfer to floor. No acute events overnight 10/15: Received 2 units plts preop, s/p C1-5 fusion, C3 laminectomy for removal of dorsal epidural tumor with nsgy, c-collar in place. CIWA protocol initiated overnight for agitation. 10/14: No acute events reported overnight, patient continues to refuse c-collar, scheduled for [facility] neurosurgery, 2 units plts preop. Hospitalist Physical - Physical exam Narrative exam: General appearance: Present: no acute distress, well-nourished, obese - EENT Eyes: Present: PERRL ENT: poor dentition - Neck Neck: Present: other (c-collar in place) - Respiratory Respiratory effort: normal Respiratory: bilateral: diminished - Cardiovascular Rhythm: regular Heart Sounds: Present: S1 & S2. Absent: systolic murmur, diastolic murmur - Extremities Extremities: no ischemia, pulses intact, pulses symmetrical Peripheral Pulses: within normal limits - Abdominal General gastrointestinal: soft, non-tender, non-distended, normal bowel sounds - Integumentary Integumentary: Present: warm, dry - Psychiatric Psychiatric: cooperative - Neurologic Neurologic: moves all extremities - Allied Health Allied health notes reviewed: nursing, RT, social work - Constitutional Vitals: Temp Pulse Resp BP Pulse Ox 99.1 F 83 16 162/77 96 10/17/20 07:15 10/17/20 08:42 10/17/20 07:15 10/17/20 08:42 10/17/20 07:15 General appearance: Present: no acute distress, well-nourished, obese Results - Labs CBC & Chem 7: 10/17/20 05:13 10/16/20 05:30 Labs: Laboratory Last Values WBC 16.2 K/mm3 (4.5-11.0) H 10/17/20 05:13 RBC 4.36 M/mm3 (3.65-5.03) 10/17/20 05:13 Hgb 12.7 gm/dl (11.8-15.2) 10/17/20 05:13 Hct 38.4 % (35.5-45.6) 10/17/20 05:13 MCV 88 fl (84-94) 10/17/20 05:13 MCH 29 pg (28-32) 10/17/20 05:13 MCHC 33 % (32-34) 10/17/20 05:13 RDW 14.9 % (13.2-15.2) 10/17/20 05:13 Plt Count 271 K/mm3 (140-440) 10/17/20 05:13 Lymph % (Auto) 8.8 % (13.4-35.0) L 10/13/20 03:54 Tyler % (Auto) 4.0 % (0.0-7.3) 10/13/20 03:54 Eos % (Auto) 0.0 % (0.0-4.3) 10/13/20 03:54 Baso % (Auto) 0.2 % (0.0-1.8) 10/13/20 03:54 Lymph # (Auto) 1.0 K/mm3 (1.2-5.4) L 10/13/20 03:54 Tyler # (Auto) 0.5 K/mm3 (0.0-0.8) 10/13/20 03:54 Eos # (Auto) 0.0 K/mm3 (0.0-0.4) 10/13/20 03:54 Baso # (Auto) 0.0 K/mm3 (0.0-0.1) 10/13/20 03:54 Seg Neutrophils % 87.0 % (40.0-70.0) H 10/13/20 03:54 Seg Neutrophils # 10.2 K/mm3 (1.8-7.7) H 10/13/20 03:54 PT 13.9 Sec. (12.2-14.9) 10/14/20 16:28 INR 1.01 (0.87-1.13) 10/14/20 16:28 APTT 26.2 Sec. (24.2-36.6) 10/12/20 08:37 Sodium 140 mmol/L (137-145) 10/16/20 05:30 Potassium 4.0 mmol/L (3.6-5.0) 10/16/20 05:30 Chloride 104.2 mmol/L (98-107) 10/16/20 05:30 Carbon Dioxide 25 mmol/L (22-30) 10/16/20 05:30 Anion Gap 15 mmol/L 10/16/20 05:30 BUN 22 mg/dL (9-20) H 10/16/20 05:30 Creatinine 0.7 mg/dL (0.8-1.3) L 10/16/20 05:30 Estimated GFR > 60 ml/min 10/16/20 05:30 BUN/Creatinine Ratio 31 % 10/16/20 05:30 Glucose 115 mg/dL (75-100) H 10/16/20 05:30 POC Glucose 116 mg/dL (70-105) H 10/17/20 11:53 Calcium 8.3 mg/dL (8.4-10.2) L 10/16/20 05:30 Magnesium 2.00 mg/dL (1.7-2.3) 10/12/20 08:37 Total Bilirubin 0.60 mg/dL (0.1-1.2) 10/13/20 03:54 AST 23 units/L (5-40) 10/13/20 03:54 ALT 28 units/L (7-56) 10/13/20 03:54 Alkaline Phosphatase 115 units/L (35-129) 10/13/20 03:54 Total Creatine Kinase 192 units/L (55-170) H 10/12/20 08:37 Total Protein 7.9 g/dL (6.3-8.2) 10/13/20 03:54 Albumin 4.6 g/dL (3.9-5) 10/13/20 03:54 Albumin/Globulin Ratio 1.4 % 10/13/20 03:54 Blood Type A POSITIVE 10/14/20 10:27 Antibody Screen Negative 10/14/20 10:27 Das/IV: Voiding Method Indwelling Catheter Active Medications - Current Medications Current Medications: Generic Name Dose Route Start Last Admin Trade Name Freq PRN Reason Stop Dose Admin Acetaminophen 650 mg 10/12/20 13:18 Acetaminophen 325 Mg Tab PO Q6H PRN Pain MILD(1-3)/Fever >100.5/SAENZ Albuterol 2.5 mg 10/12/20 13:18 Albuterol 2.5 Mg/3 Ml Nebu IH Q3HRT PRN Shortness Of Breath Amlodipine Besylate 10 mg 10/16/20 10:00 10/17/20 08:42 Amlodipine 10 Mg Tab PO 10 mg QDAY MIGUELINA Administration Atorvastatin Calcium 40 mg 10/14/20 22:00 10/16/20 23:25 Atorvastatin 40 Mg Tab PO 40 mg QHS MIGUELINA Administration Dextrose 50 ml 10/14/20 07:55 Dextrose 50% In Water (25gm) 50 Ml Syringe IV Q30MIN PRN Hypoglycemia Protocol Docusate Sodium 100 mg 10/14/20 22:00 10/17/20 10:00 Docusate Sodium 100 Mg Cap PO Not Given BID MIGUELINA Famotidine 20 mg 10/13/20 10:00 10/17/20 10:00 Famotidine 20 Mg Tab PO Not Given QDAY MIGUELINA Hydralazine HCl 10 mg 10/12/20 21:26 10/16/20 15:26 Hydralazine 20 Mg/1 Ml Inj IV 10 mg Q4HR PRN Administration Blood Pressure Hydromorphone HCl 0.5 mg 10/12/20 13:18 10/17/20 12:31 Hydromorphone 1 Mg/1 Ml Inj IV 0.5 mg Q3H PRN Administration Pain , Severe (7-10) Insulin Human Lispro 0 unit 10/14/20 11:30 10/17/20 12:35 Insulin Lispro 100 Unit/Ml SUB-Q Not Given ACHS [facility] Protocol Methylprednisolone Sodium Succinate 40 mg 10/12/20 14:00 10/17/20 13:22 Methylprednisolone Sod Succinate 40 Mg/1 Ml Inj IV 40 mg Q8HR MIGUELINA Administration Oxycodone/Acetaminophen 2 tab 10/17/20 08:00 Oxycodone /Acetaminophen 5-325mg Tab PO Q6H PRN Pain, Moderate (4-6) Sodium Chloride 10 ml 10/12/20 22:00 10/17/20 13:22 Sodium Chloride 0.9% 10 Ml Flush Syringe IV 10 ml BID MIGUELINA Administration Sodium Chloride 10 ml 10/12/20 13:18 Sodium Chloride 0.9% 10 Ml Flush Syringe IV PRN PRN LINE FLUSH Valsartan 160 mg 10/17/20 10:00 10/17/20 10:00 Valsartan 160mg Tab PO Not Given DAILY MIGUELINA
--- NOTE | 2020-10-17 14:45 | Progress Note ---
Assessment and Plan Unstable cervical spine (lytic lesions) Metastatic disease Lung Mass (right lung) Hypertension Metabolic acidosis - Oncology consult placed - continue care as below otherwise; - continue RTC C-collar use - if needs lung biopsy, CT guided approach better re: Unstable c-spine issues - neurochecks per neurosurgeon - prn supplemental oxygen to keep O2 sats > 90% - prn bronchodilators (LAURI & LABA) with pulm hygiene per RT - systemic steroids re: cord edema per neurosurgery rec's - avoid nephrotoxins, renally dose all medications - continue mobility protocols to prevent pressure ulcers - PT/OT as tolerated - Wound care per RN/WCT - accuchecks with glycemic control per SSI for target blood glucose < 180 mg/dL - tobacco abstinence strongly counseled at the bedside - home oxygen evaluation at discharge - GI & VTE prophylaxis - Flu & pneumovax per protocol - Pulmonary out patient follow up for PFTs and optimization of respiratory status - continue other care per attending / other consultants - prn analgesia per pain score ... re-evaluate in am & prn Subjective Date of service: 10/17/20 Principal diagnosis: Cord compression syn / Unstable C-spine; R. Lung Mass; HTN; Met. Acidosis Interval history: Patient is seen today for: Unstable cervical spine; R. 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; he denies hemoptysis; no seizures and no new onset focal deficits Objective Vital Signs - 12hr 10/17/20 10/17/20 10/17/20 04:49 07:15 08:41 Temperature 99.1 F 99.1 F Pulse Rate 104 H 83 77 Respiratory 18 16 Rate Blood Pressure 174/83 162/77 162/77 O2 Sat by Pulse 100 96 Oximetry 10/17/20 08:42 Temperature Pulse Rate 83 Respiratory Rate Blood Pressure 162/77 O2 Sat by Pulse Oximetry Constitutional: no acute distress Eyes: non-icteric ENT: oropharynx moist Neck: supple, no lymphadenopathy, no JVD, other (C-collar in place) Effort: normal Ascultation: Bilateral: clear, diminished breath sounds Percussion: Bilateral: not dull Cardiovascular: regular rate and rhythm Gastrointestinal: normoactive bowel sounds, soft, non-tender, non-distended Integumentary: normal Extremities: no cyanosis, no edema, pulses normal, no ischemia or petechiae Neurologic: normal mental status, pupils equal and round, CN II-XII normal, other (improved upper extremity power) Psychiatric: mood appropriate, affect normal CBC and BMP: 10/17/20 05:13 10/16/20 05:30 ABG, PT/INR, D-dimer: PT/INR, D-dimer PT 13.9 Sec. (12.2-14.9) 10/14/20 16:28 INR 1.01 (0.87-1.13) 10/14/20 16:28 Abnormal lab findings: Abnormal Labs 10/12/20 10/12/20 10/13/20 08:37 08:37 03:54 WBC 11.7 H MCHC 35 H Lymph % (Auto) 13.0 L 8.8 L Lymph # (Auto) 1.0 L Seg Neutrophils % 79.1 H 87.0 H Seg Neutrophils # 10.2 H Carbon Dioxide 21 L BUN Creatinine 0.6 L Glucose 105 H POC Glucose Calcium Total Creatine Kinase 192 H 10/13/20 10/13/20 10/15/20 03:54 11:40 07:03 WBC 14.7 H MCHC Lymph % (Auto) Lymph # (Auto) Seg Neutrophils % Seg Neutrophils # Carbon Dioxide 18 L BUN 23 H Creatinine Glucose 118 H POC Glucose 153 H Calcium Total Creatine Kinase 10/15/20 10/15/20 10/15/20 07:03 16:34 22:26 WBC MCHC Lymph % (Auto) Lymph # (Auto) Seg Neutrophils % Seg Neutrophils # Carbon Dioxide BUN 29 H Creatinine 0.7 L Glucose 115 H POC Glucose 107 H 106 H Calcium Total Creatine Kinase 10/16/20 10/16/20 10/16/20 05:30 05:30 07:44 WBC 17.6 H MCHC Lymph % (Auto) Lymph # (Auto) Seg Neutrophils % Seg Neutrophils # Carbon Dioxide BUN 22 H Creatinine 0.7 L Glucose 115 H POC Glucose 123 H Calcium 8.3 L Total Creatine Kinase 10/16/20 10/17/20 10/17/20 11:43 05:13 07:13 WBC 16.2 H MCHC Lymph % (Auto) Lymph # (Auto) Seg Neutrophils % Seg Neutrophils # Carbon Dioxide BUN Creatinine Glucose POC Glucose 118 H 118 H Calcium Total Creatine Kinase 10/17/20 11:53 WBC MCHC Lymph % (Auto) Lymph # (Auto) Seg Neutrophils % Seg Neutrophils # Carbon Dioxide BUN Creatinine Glucose POC Glucose 116 H Calcium Total Creatine Kinase Allied health notes reviewed: nursing
[2020-10-17] MEDS: oxyCODONE /ACETAMINOPHEN 5-325MG TAB PO PRN (15:19)
[2020-10-18] MEDS: oxyCODONE /ACETAMINOPHEN 5-325MG TAB PO PRN ×4 (00:19→21:20)
[2020-10-18] MEDS: HYDROmorphone 1 MG/1 ML INJ IV PRN ×4 (03:10→18:12)
[2020-10-18] MEDS: methylPREDNISolone Sod Succinate 40 MG/1 ML INJ IV SCH ×3 (06:13→21:20)
--- NOTE | 2020-10-18 06:55 | Operative Report ---
BRIEF HISTORY: The patient is a 75-year-old male that presented to [facility] with complaints of progressive arm and leg weakness. A CT scan was obtained, which demonstrated a vertebral body lesion centered at C3 vertebral body with lysis of the corpus and posterior articular masses posteriorly. There was a dorsal soft tissue component demonstrated on MRI that caused significant cord compression. He was admitted to the ICU for MAP parameters and frequent neurologic checks. Based on his examination and the imaging studies, we decided to proceed with surgical intervention via C1-5 fusion, C3 laminectomy for removal of epidural tumor. The risks and benefits of surgery were reviewed. Mr. King agreed to proceed. DETAILS OF THE PROCEDURE: The patient was taken to the operating theater by Anesthesia. He was intubated without difficulty. An arterial line was placed. He was positioned prone on a flat top table on bolsters. Please note that all pressure points were padded to prevent peripheral nerve injury. The eyes were lubricated and taped shut to prevent corneal abrasion. The area of the planned skin incision was marked and identified. The area was prepped and draped in the usual sterile fashion. The skin was infiltrated with 1% lidocaine with epinephrine. The skin was opened with a #10 scalpel blade. Further dissection was performed with the electrosurgical generator of Marko Patel. The spinous processes from C2-C6 were identified. The laminae at C2, C3, C4 and C5 were exposed in a subperiosteal fashion. Next, the posterior arch of C1 was identified and exposed with the electrosurgical generator of Marko Patel and a Liberty #1. The C1 lateral masses were also exposed with meticulous dissection and hemostasis with the bipolar forceps of Bill Baca. Self-retaining retractors were utilized to maintain exposure. Next, using a 3 mm gina drill entry holes were placed bilaterally at the C1 lateral masses. 3.5 x 28 mm partially threaded screws were placed on each side. Next, a 3.5 x 20 mm screw was placed in the left C2 pars in the usual fashion using lateral fluoroscopy. The right C2 and bilateral C3, articular masses were not instrumented due to extensive tumor erosion. Next, bilateral screws were placed at C4 and C5. There was good fixation achieved with each screw. Appropriate location and placement was confirmed with both AP and lateral fluoroscopy. Next, using a high speed drill, the C3 lamina was removed. There was extensive dorsal soft tissue tumor. It was friable and spongelike in consistency. The tumor that was removed very carefully with pituitary rongeurs and suction. The spinal cord was widely decompressed. The inferior portion of the C2 lamina was also removed, as there appeared to be a tumor that extended superiorly under the C2 lamina. The tumor specimen was sent to the pathology lab for permanent analysis. Once the decompression had been deemed satisfactory, meticulous hemostasis was achieved with the bipolar forceps of Bill Baca and Surgiflo. The exposed soft tissues were irrigated with saline. 70 mm rods were placed bilaterally inside the screw heads and secured with locking caps. The locking caps were finally tightened. Next, the exposed bony surfaces were decorticated with the high speed matchstick drill. 10 mL of demineralized bone matrix putty was packed into the lateral masses for posterolateral arthrodesis. Finally, a drain was tunneled through the skin and placed overlying the decompression. Next, attention was directed to closure. The muscle was reapproximated with 0 polyglactin synthetic absorbable suture. The fascia was also closed with 0 polyglactin synthetic absorbable suture. The dermis was closed with 2-0 polyglactin synthetic absorbable suture in an inverted fashion. the soft tissues were infiltrated with 0.25% Marcaine plain to aid post operative analgesia. Vancomycin powder was also used to coat the exposed soft tissues. The skin was reapproximated with alida. Please note that all needle counts, sponge counts and instrument counts were correct at the end of the case x2. There were no apparent complications. There were no neuromonitoring changes throughout the duration of the operation. The patient was returned to Anesthesia where he was extubated without delay. He was transferred to the recovery unit in stable condition. TID: [id number] RECEIPT: [id number] MARKUS/INGRID/KARLENE PETER
--- NOTE | 2020-10-18 07:52 | Progress Note ---
Assessment and Plan Assessment and plan: 75 yo male with HTN admitted with severe cervical stenosis and cord compression 2/2 C3 lytic lesion with dorsal epidural space mass, metastatic disease, lung mass, metabolic acidosis Past Medical History: hypertension Past Surgical History: No surgical history Social history: , lives with family. denies: smoking, alcohol abuse (he drinks 1-2 beers daily), prescription drug abuse Home meds: mobic, tizandine, desyrel, amlodipine, losartan, rosuvastatin Neuro: Severe cervical stenosis and cord compression 2/2 C3 lytic lesion with dorsal epidural space mass -Neurosurgery consulted, appreciate recommendations -C-collar per neurosurgery -10/15 s/p C1-5 fusion, C3 laminectomy for removal of dorsal epidural tumor (dorsal soft tissue mass sent to pathology for permanent specimen) -s/p 4 units platelets -Every 4 hour neurochecks -IV Decadron, prn Dilaudid and oxycodone -Aspiration/fall/seizure precautions -10/12 CT C-spine shows lytic lesion involving C3 vertebral body, posterior elements and 3 cm right middle lung zone lung mass concerning for primary lung cancer -CIWA protocol -Patient c/o weakness to B UE/LE, tingling to BUE Cardio: SR, h/o HTN, CAD -resume home amlodipine, losartan -As needed hydralazine -Blood pressure monitor per protocol -uses home Aspirin -Resume home statin Respiratory: R lung mass, suspicious for adenocarcinoma -10/12 CT chest shows large mass within the right upper lung -Based on surgical path results, patient appears to have 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 -Surgical path demonstrates adenocarcinoma with suspected lung primary. Oncology consulted, follow recs -Patient is on Decadron -Transfuse for hemoglobin less than 7 -Trend CBC -SCDs to BLE while in bed -Chemical prophylaxis per nsgy ID: NAD, afebrile -Slight leukocytosis however the patient is on Decadron Dispo: PT/OT evaluation occurring today. Patient still has drainage from GISSEL drain. Will follow along with neurosurgery for recommendations. Consult case management for discharge planning/placement. Full code History Interval history: 10/18/2020: No acute overnight events. Awaiting oncology to evaluate patient. 10/17/2020: No acute overnight events. Patient was working with physical therapy this morning. GISSEL drains noted to have some mild drainage about 1/4 full. No acute complaints otherwise other than pain which he is getting scheduled as needed pain medication for. 10/16: PEr nsgy ok to transfer to floor. No acute events overnight 10/15: Received 2 units plts preop, s/p C1-5 fusion, C3 laminectomy for removal of dorsal epidural tumor with nsgy, c-collar in place. CIWA protocol initiated overnight for agitation. 10/14: No acute events reported overnight, patient continues to refuse c-collar, scheduled for PSF neurosurgery, 2 units plts preop. Hospitalist Physical - Physical exam Narrative exam: General appearance: Present: no acute distress, well-nourished, obese - EENT Eyes: Present: PERRL ENT: poor dentition - Neck Neck: Present: other (c-collar in place) - Respiratory Respiratory effort: normal Respiratory: bilateral: diminished - Cardiovascular Rhythm: regular Heart Sounds: Present: S1 & S2. Absent: systolic murmur, diastolic murmur - Extremities Extremities: no ischemia, pulses intact, pulses symmetrical Peripheral Pulses: within normal limits - Abdominal General gastrointestinal: soft, non-tender, non-distended, normal bowel sounds - Integumentary Integumentary: Present: warm, dry - Psychiatric Psychiatric: cooperative - Neurologic Neurologic: moves all extremities - Allied Health Allied health notes reviewed: nursing, RT, social work - Constitutional Vitals: Temp Pulse Resp BP Pulse Ox 98.4 F 81 20 152/77 100 10/18/20 05:06 10/18/20 05:06 10/18/20 05:06 10/18/20 05:06 10/18/20 05:06 General appearance: Present: no acute distress, well-nourished, obese Results - Labs CBC & Chem 7: 10/17/20 05:13 10/16/20 05:30 Labs: Laboratory Last Values WBC 16.2 K/mm3 (4.5-11.0) H 10/17/20 05:13 RBC 4.36 M/mm3 (3.65-5.03) 10/17/20 05:13 Hgb 12.7 gm/dl (11.8-15.2) 10/17/20 05:13 Hct 38.4 % (35.5-45.6) 10/17/20 05:13 MCV 88 fl (84-94) 10/17/20 05:13 MCH 29 pg (28-32) 10/17/20 05:13 MCHC 33 % (32-34) 10/17/20 05:13 RDW 14.9 % (13.2-15.2) 10/17/20 05:13 Plt Count 271 K/mm3 (140-440) 10/17/20 05:13 Lymph % (Auto) 8.8 % (13.4-35.0) L 10/13/20 03:54 [place] % (Auto) 4.0 % (0.0-7.3) 10/13/20 03:54 Eos % (Auto) 0.0 % (0.0-4.3) 10/13/20 03:54 Baso % (Auto) 0.2 % (0.0-1.8) 10/13/20 03:54 Lymph # (Auto) 1.0 K/mm3 (1.2-5.4) L 10/13/20 03:54 [place] # (Auto) 0.5 K/mm3 (0.0-0.8) 10/13/20 03:54 Eos # (Auto) 0.0 K/mm3 (0.0-0.4) 10/13/20 03:54 Baso # (Auto) 0.0 K/mm3 (0.0-0.1) 10/13/20 03:54 Seg Neutrophils % 87.0 % (40.0-70.0) H 10/13/20 03:54 Seg Neutrophils # 10.2 K/mm3 (1.8-7.7) H 10/13/20 03:54 PT 13.9 Sec. (12.2-14.9) 10/14/20 16:28 INR 1.01 (0.87-1.13) 10/14/20 16:28 APTT 26.2 Sec. (24.2-36.6) 10/12/20 08:37 Sodium 140 mmol/L (137-145) 10/16/20 05:30 Potassium 4.0 mmol/L (3.6-5.0) 10/16/20 05:30 Chloride 104.2 mmol/L (98-107) 10/16/20 05:30 Carbon Dioxide 25 mmol/L (22-30) 10/16/20 05:30 Anion Gap 15 mmol/L 10/16/20 05:30 BUN 22 mg/dL (9-20) H 10/16/20 05:30 Creatinine 0.7 mg/dL (0.8-1.3) L 10/16/20 05:30 Estimated GFR > 60 ml/min 10/16/20 05:30 BUN/Creatinine Ratio 31 % 10/16/20 05:30 Glucose 115 mg/dL (75-100) H 10/16/20 05:30 POC Glucose 130 mg/dL (70-105) H 10/18/20 07:43 Calcium 8.3 mg/dL (8.4-10.2) L 10/16/20 05:30 Magnesium 2.00 mg/dL (1.7-2.3) 10/12/20 08:37 Total Bilirubin 0.60 mg/dL (0.1-1.2) 10/13/20 03:54 AST 23 units/L (5-40) 10/13/20 03:54 ALT 28 units/L (7-56) 10/13/20 03:54 Alkaline Phosphatase 115 units/L (35-129) 10/13/20 03:54 Total Creatine Kinase 192 units/L (55-170) H 10/12/20 08:37 Total Protein 7.9 g/dL (6.3-8.2) 10/13/20 03:54 Albumin 4.6 g/dL (3.9-5) 10/13/20 03:54 Albumin/Globulin Ratio 1.4 % 10/13/20 03:54 Blood Type A POSITIVE 10/14/20 10:27 Antibody Screen Negative 10/14/20 10:27 Das/IV: Voiding Method Indwelling Catheter Active Medications - Current Medications Current Medications: Generic Name Dose Route Start Last Admin Trade Name Freq PRN Reason Stop Dose Admin Acetaminophen 650 mg 10/12/20 13:18 Acetaminophen 325 Mg Tab PO Q6H PRN Pain MILD(1-3)/Fever >100.5/SAENZ Albuterol 2.5 mg 10/12/20 13:18 Albuterol 2.5 Mg/3 Ml Nebu IH Q3HRT PRN Shortness Of Breath Amlodipine Besylate 10 mg 10/16/20 10:00 10/17/20 08:42 Amlodipine 10 Mg Tab PO 10 mg QDAY MIGUELINA Administration Atorvastatin Calcium 40 mg 10/14/20 22:00 10/17/20 21:41 Atorvastatin 40 Mg Tab PO 40 mg QHS MIGUELINA Administration Dextrose 50 ml 10/14/20 07:55 Dextrose 50% In Water (25gm) 50 Ml Syringe IV Q30MIN PRN Hypoglycemia Protocol Docusate Sodium 100 mg 10/14/20 22:00 10/17/20 21:39 Docusate Sodium 100 Mg Cap PO 100 mg BID MIGUELINA Administration Famotidine 20 mg 10/13/20 10:00 10/17/20 10:00 Famotidine 20 Mg Tab PO Not Given QDAY MIGUELINA Hydralazine HCl 10 mg 10/12/20 21:26 10/16/20 15:26 Hydralazine 20 Mg/1 Ml Inj IV 10 mg Q4HR PRN Administration Blood Pressure Hydromorphone HCl 0.5 mg 10/12/20 13:18 10/18/20 06:12 Hydromorphone 1 Mg/1 Ml Inj IV 0.5 mg Q3H PRN Administration Pain , Severe (7-10) Insulin Human Lispro 0 unit 10/14/20 11:30 10/17/20 22:18 Insulin Lispro 100 Unit/Ml SUB-Q Not Given ACHS MIGUELINA Protocol Methylprednisolone Sodium Succinate 40 mg 10/12/20 14:00 10/18/20 06:13 Methylprednisolone Sod Succinate 40 Mg/1 Ml Inj IV 40 mg Q8HR MIGUELINA Administration Oxycodone/Acetaminophen 2 tab 10/17/20 08:00 10/18/20 00:19 Oxycodone /Acetaminophen 5-325mg Tab PO 2 tab Q6H PRN Administration Pain, Moderate (4-6) Sodium Chloride 10 ml 10/12/20 22:00 10/17/20 21:41 Sodium Chloride 0.9% 10 Ml Flush Syringe IV 10 ml BID MIGUELINA Administration Sodium Chloride 10 ml 10/12/20 13:18 Sodium Chloride 0.9% 10 Ml Flush Syringe IV PRN PRN LINE FLUSH Valsartan 160 mg 10/17/20 10:00 10/17/20 10:00 Valsartan 160mg Tab PO Not Given DAILY MIGUELINA
[2020-10-18] MEDS: INSULIN LISPRO 100 UNIT/ML SUB-Q SCH ×5 (08:32→22:00)
[2020-10-18] MEDS: DOCUSATE SODIUM 100 MG CAP PO SCH ×2 (09:33→21:21)
[2020-10-18] MEDS: amLODIPine 10 MG TAB PO SCH (09:33)
[2020-10-18] MEDS: VALSARTAN 160MG TAB PO SCH (09:34)
[2020-10-18] MEDS: FAMOTIDINE 20 MG TAB PO SCH (09:35)
--- NOTE | 2020-10-18 14:06 | Progress Note ---
Assessment and Plan Unstable cervical spine (lytic lesions) Metastatic disease Lung Mass (right lung) Hypertension Metabolic acidosis - Oncology consult placed - continue care as below otherwise; - continue RTC C-collar use - if needs lung biopsy, CT guided approach better re: Unstable c-spine issues - neurochecks per neurosurgeon - prn supplemental oxygen to keep O2 sats > 90% - prn bronchodilators (LAURI & LABA) with pulm hygiene per RT - systemic steroids re: cord edema per neurosurgery rec's - avoid nephrotoxins, renally dose all medications - continue mobility protocols to prevent pressure ulcers - PT/OT as tolerated - Wound care per RN/WCT - accuchecks with glycemic control per SSI for target blood glucose < 180 mg/dL - tobacco abstinence strongly counseled at the bedside - home oxygen evaluation at discharge - GI & VTE prophylaxis - Flu & pneumovax per protocol - Pulmonary out patient follow up for PFTs and optimization of respiratory status - continue other care per attending / other consultants - prn analgesia per pain score ... re-evaluate in am & prn Subjective Date of service: 10/18/20 Principal diagnosis: Cord compression syn / Unstable C-spine; R. Lung Mass; HTN; Met. Acidosis Interval history: Patient is seen today for: Unstable cervical spine; R. 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; await oncology evaluation; Objective Vital Signs - 12hr 10/18/20 10/18/20 10/18/20 05:06 07:43 09:18 Temperature 98.4 F 98.3 F Pulse Rate 81 71 Respiratory 20 18 Rate Blood Pressure 152/77 169/82 O2 Sat by Pulse 100 100 100 Oximetry 10/18/20 10/18/20 10/18/20 09:33 09:34 11:14 Temperature 97.6 F Pulse Rate 71 71 71 Respiratory 18 Rate Blood Pressure 169/82 169/82 153/77 O2 Sat by Pulse 100 Oximetry Constitutional: no acute distress Eyes: non-icteric ENT: oropharynx moist Neck: supple, no lymphadenopathy, no JVD, other (C-collar in place) Effort: normal Ascultation: Bilateral: clear, diminished breath sounds Percussion: Bilateral: not dull Cardiovascular: regular rate and rhythm Gastrointestinal: normoactive bowel sounds, soft, non-tender, non-distended Integumentary: normal Extremities: no cyanosis, no edema, pulses normal, no ischemia or petechiae Neurologic: normal mental status, pupils equal and round, CN II-XII normal, other (improved upper extremity power) Psychiatric: mood appropriate, affect normal CBC and BMP: 10/17/20 05:13 10/16/20 05:30 ABG, PT/INR, D-dimer: PT/INR, D-dimer PT 13.9 Sec. (12.2-14.9) 10/14/20 16:28 INR 1.01 (0.87-1.13) 10/14/20 16:28 Abnormal lab findings: Abnormal Labs 10/12/20 10/12/20 10/13/20 08:37 08:37 03:54 WBC 11.7 H MCHC 35 H Lymph % (Auto) 13.0 L 8.8 L Lymph # (Auto) 1.0 L Seg Neutrophils % 79.1 H 87.0 H Seg Neutrophils # 10.2 H Carbon Dioxide 21 L BUN Creatinine 0.6 L Glucose 105 H POC Glucose Calcium Total Creatine Kinase 192 H 10/13/20 10/13/20 10/15/20 03:54 11:40 07:03 WBC 14.7 H MCHC Lymph % (Auto) Lymph # (Auto) Seg Neutrophils % Seg Neutrophils # Carbon Dioxide 18 L BUN 23 H Creatinine Glucose 118 H POC Glucose 153 H Calcium Total Creatine Kinase 10/15/20 10/15/20 10/15/20 07:03 16:34 22:26 WBC MCHC Lymph % (Auto) Lymph # (Auto) Seg Neutrophils % Seg Neutrophils # Carbon Dioxide BUN 29 H Creatinine 0.7 L Glucose 115 H POC Glucose 107 H 106 H Calcium Total Creatine Kinase 10/16/20 10/16/20 10/16/20 05:30 05:30 07:44 WBC 17.6 H MCHC Lymph % (Auto) Lymph # (Auto) Seg Neutrophils % Seg Neutrophils # Carbon Dioxide BUN 22 H Creatinine 0.7 L Glucose 115 H POC Glucose 123 H Calcium 8.3 L Total Creatine Kinase 10/16/20 10/17/20 10/17/20 11:43 05:13 07:13 WBC 16.2 H MCHC Lymph % (Auto) Lymph # (Auto) Seg Neutrophils % Seg Neutrophils # Carbon Dioxide BUN Creatinine Glucose POC Glucose 118 H 118 H Calcium Total Creatine Kinase 10/17/20 10/17/20 10/17/20 11:53 16:18 21:10 WBC MCHC Lymph % (Auto) Lymph # (Auto) Seg Neutrophils % Seg Neutrophils # Carbon Dioxide BUN Creatinine Glucose POC Glucose 116 H 137 H 115 H Calcium Total Creatine Kinase 10/18/20 10/18/20 07:43 11:14 WBC MCHC Lymph % (Auto) Lymph # (Auto) Seg Neutrophils % Seg Neutrophils # Carbon Dioxide BUN Creatinine Glucose POC Glucose 130 H 150 H Calcium Total Creatine Kinase Allied health notes reviewed: nursing
--- NOTE | 2020-10-18 17:43 | Progress Note ---
Assessment and Plan 75 y/o M POD3 s/p C1-5 PSF, removal of epidural tumor -drain removed -may start pharmacologic dvt prophylaxis -regular diet -PT/OT -heme onc recs -case management for discharge planning Subjective Date of service: 10/18/20 Principal diagnosis: Cord compression syn / Unstable C-spine; R. Lung Mass; HTN; Met. Acidosis Interval history: seen and examined. He reports significant improvement in his arm and leg strength and sensation Objective - Exam Narrative Exam: NAEON NC/AT RRR breathing non-labored abdomen soft no cyanosis or clubbing A&Ox3 XII-XII Intact MAEW incision c/d/i drain patent - Vital Sign Vital Signs - 12hr 10/18/20 10/18/20 10/18/20 07:43 09:18 09:33 Temperature 98.3 F Pulse Rate 71 71 Respiratory 18 Rate Blood Pressure 169/82 169/82 O2 Sat by Pulse 100 100 Oximetry 10/18/20 10/18/20 10/18/20 09:34 11:14 16:40 Temperature 97.6 F 98.4 F Pulse Rate 71 71 78 Respiratory 18 18 Rate Blood Pressure 169/82 153/77 155/73 O2 Sat by Pulse 100 96 Oximetry - Laboratory Findings CBC and BMP: 10/17/20 05:13 10/16/20 05:30 Abnormal Lab Findings: Abnormal Labs 10/12/20 10/12/20 10/13/20 08:37 08:37 03:54 WBC 11.7 H MCHC 35 H Lymph % (Auto) 13.0 L 8.8 L Lymph # (Auto) 1.0 L Seg Neutrophils % 79.1 H 87.0 H Seg Neutrophils # 10.2 H Carbon Dioxide 21 L BUN Creatinine 0.6 L Glucose 105 H POC Glucose Calcium Total Creatine Kinase 192 H 10/13/20 10/13/20 10/15/20 03:54 11:40 07:03 WBC 14.7 H MCHC Lymph % (Auto) Lymph # (Auto) Seg Neutrophils % Seg Neutrophils # Carbon Dioxide 18 L BUN 23 H Creatinine Glucose 118 H POC Glucose 153 H Calcium Total Creatine Kinase 10/15/20 10/15/20 10/15/20 07:03 16:34 22:26 WBC MCHC Lymph % (Auto) Lymph # (Auto) Seg Neutrophils % Seg Neutrophils # Carbon Dioxide BUN 29 H Creatinine 0.7 L Glucose 115 H POC Glucose 107 H 106 H Calcium Total Creatine Kinase 10/16/20 10/16/20 10/16/20 05:30 05:30 07:44 WBC 17.6 H MCHC Lymph % (Auto) Lymph # (Auto) Seg Neutrophils % Seg Neutrophils # Carbon Dioxide BUN 22 H Creatinine 0.7 L Glucose 115 H POC Glucose 123 H Calcium 8.3 L Total Creatine Kinase 10/16/20 10/17/20 10/17/20 11:43 05:13 07:13 WBC 16.2 H MCHC Lymph % (Auto) Lymph # (Auto) Seg Neutrophils % Seg Neutrophils # Carbon Dioxide BUN Creatinine Glucose POC Glucose 118 H 118 H Calcium Total Creatine Kinase 10/17/20 10/17/20 10/17/20 11:53 16:18 21:10 WBC MCHC Lymph % (Auto) Lymph # (Auto) Seg Neutrophils % Seg Neutrophils # Carbon Dioxide BUN Creatinine Glucose POC Glucose 116 H 137 H 115 H Calcium Total Creatine Kinase 10/18/20 10/18/20 10/18/20 07:43 11:14 16:42 WBC MCHC Lymph % (Auto) Lymph # (Auto) Seg Neutrophils % Seg Neutrophils # Carbon Dioxide BUN Creatinine Glucose POC Glucose 130 H 150 H 165 H Calcium Total Creatine Kinase
[2020-10-18] MEDS: hydrALAZINE 20 MG/1 ML INJ IV PRN (22:53)
[2020-10-19] MEDS: HYDROmorphone 1 MG/1 ML INJ IV PRN ×4 (00:33→18:57)
[2020-10-19] MEDS: oxyCODONE /ACETAMINOPHEN 5-325MG TAB PO PRN ×4 (03:39→21:59)
[2020-10-19] MEDS: methylPREDNISolone Sod Succinate 40 MG/1 ML INJ IV SCH ×3 (05:26→22:02)
[2020-10-19] MEDS: INSULIN LISPRO 100 UNIT/ML SUB-Q SCH ×4 (08:31→22:01)
--- NOTE | 2020-10-19 08:45 | Progress Note ---
Assessment and Plan Unstable cervical spine (lytic lesions) Metastatic disease Lung Mass (right lung) Hypertension Metabolic acidosis Continue all care as documented below Pain management with a bowel regimen - if needs lung biopsy, CT guided approach better re: Unstable c-spine issues - neurochecks per neurosurgeon - prn supplemental oxygen to keep O2 sats > 90% - prn bronchodilators (LAURI & LABA) with pulm hygiene per RT - systemic steroids re: cord edema per neurosurgery recs - continue mobility protocols to prevent pressure ulcers - PT/Jamie evaluate and treat - Wound care per RN/WCT - accuchecks with glycemic control per SSI for target blood glucose < 180 mg/dL - Pharmacologic VTE prophylaxis per Neurosurgery recommendations - Influenza & pneumovax per protocol - continue other care per attending / other consultants ... re-evaluate in am & prn Subjective Date of service: 10/19/20 Principal diagnosis: Cord compression syn / Unstable C-spine; R. Lung Mass; HTN; Met. Acidosis Interval history: Patient is seen today for: Unstable cervical spine; R. 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; await oncology evaluation; states he is feeling better and is moving all his limbs. he does have some back pain but is waiting for his pain medications. No diarrhea, no nausea or vomiting, no fevers or chills. No chest pain, n shortness of breath. Objective Vital Signs - 12hr 10/18/20 10/19/20 10/19/20 23:48 00:00 05:32 Temperature 98.5 F 98.5 F Pulse Rate 86 84 Respiratory 20 20 Rate Blood Pressure 168/78 161/81 O2 Sat by Pulse 96 98 100 Oximetry 10/19/20 08:04 Temperature 97.7 F Pulse Rate Respiratory 18 Rate Blood Pressure 158/81 O2 Sat by Pulse Oximetry Constitutional: no acute distress, alert, other Eyes: non-icteric ENT: oropharynx moist Neck: supple, no lymphadenopathy, no JVD Effort: normal Ascultation: Bilateral: clear, diminished breath sounds Percussion: Bilateral: not dull Cardiovascular: regular rate and rhythm, other (S1,S2) Gastrointestinal: normoactive bowel sounds, soft, non-tender, non-distended Integumentary: normal Extremities: no cyanosis, no edema, pulses normal, no ischemia or petechiae Neurologic: normal mental status, pupils equal and round, CN II-XII normal, motor strength normal and, other Psychiatric: mood appropriate, affect normal CBC and BMP: 10/17/20 05:13 10/16/20 05:30 ABG, PT/INR, D-dimer: PT/INR, D-dimer PT 13.9 Sec. (12.2-14.9) 10/14/20 16:28 INR 1.01 (0.87-1.13) 10/14/20 16:28 Abnormal lab findings: Abnormal Labs 10/12/20 10/12/20 10/13/20 08:37 08:37 03:54 WBC 11.7 H MCHC 35 H Lymph % (Auto) 13.0 L 8.8 L Lymph # (Auto) 1.0 L Seg Neutrophils % 79.1 H 87.0 H Seg Neutrophils # 10.2 H Carbon Dioxide 21 L BUN Creatinine 0.6 L Glucose 105 H POC Glucose Calcium Total Creatine Kinase 192 H 10/13/20 10/13/20 10/15/20 03:54 11:40 07:03 WBC 14.7 H MCHC Lymph % (Auto) Lymph # (Auto) Seg Neutrophils % Seg Neutrophils # Carbon Dioxide 18 L BUN 23 H Creatinine Glucose 118 H POC Glucose 153 H Calcium Total Creatine Kinase 10/15/20 10/15/20 10/15/20 07:03 16:34 22:26 WBC MCHC Lymph % (Auto) Lymph # (Auto) Seg Neutrophils % Seg Neutrophils # Carbon Dioxide BUN 29 H Creatinine 0.7 L Glucose 115 H POC Glucose 107 H 106 H Calcium Total Creatine Kinase 10/16/20 10/16/20 10/16/20 05:30 05:30 07:44 WBC 17.6 H MCHC Lymph % (Auto) Lymph # (Auto) Seg Neutrophils % Seg Neutrophils # Carbon Dioxide BUN 22 H Creatinine 0.7 L Glucose 115 H POC Glucose 123 H Calcium 8.3 L Total Creatine Kinase 10/16/20 10/17/20 10/17/20 11:43 05:13 07:13 WBC 16.2 H MCHC Lymph % (Auto) Lymph # (Auto) Seg Neutrophils % Seg Neutrophils # Carbon Dioxide BUN Creatinine Glucose POC Glucose 118 H 118 H Calcium Total Creatine Kinase 10/17/20 10/17/20 10/17/20 11:53 16:18 21:10 WBC MCHC Lymph % (Auto) Lymph # (Auto) Seg Neutrophils % Seg Neutrophils # Carbon Dioxide BUN Creatinine Glucose POC Glucose 116 H 137 H 115 H Calcium Total Creatine Kinase 10/18/20 10/18/20 10/18/20 07:43 11:14 16:42 WBC MCHC Lymph % (Auto) Lymph # (Auto) Seg Neutrophils % Seg Neutrophils # Carbon Dioxide BUN Creatinine Glucose POC Glucose 130 H 150 H 165 H Calcium Total Creatine Kinase 10/18/20 10/19/20 21:26 08:03 WBC MCHC Lymph % (Auto) Lymph # (Auto) Seg Neutrophils % Seg Neutrophils # Carbon Dioxide BUN Creatinine Glucose POC Glucose 181 H 142 H Calcium Total Creatine Kinase Allied health notes reviewed: nursing
--- NOTE | 2020-10-19 09:36 | Progress Note ---
Assessment and Plan Assessment and plan: 75 yo male with HTN admitted with severe cervical stenosis and cord compression 2/2 C3 lytic lesion with dorsal epidural space mass, metastatic disease, lung mass, metabolic acidosis Past Medical History: hypertension Past Surgical History: No surgical history Social history: , lives with family. denies: smoking, alcohol abuse (he drinks 1-2 beers daily), prescription drug abuse Home meds: mobic, tizandine, desyrel, amlodipine, losartan, rosuvastatin Neuro: Severe cervical stenosis and cord compression 2/2 C3 lytic lesion with dorsal epidural space mass -Neurosurgery consulted, appreciate recommendations -C-collar per neurosurgery -10/15 s/p C1-5 fusion, C3 laminectomy for removal of dorsal epidural tumor (dorsal soft tissue mass sent to pathology for permanent specimen) -s/p 4 units platelets -Every 4 hour neurochecks -IV Decadron, prn Dilaudid and oxycodone -Aspiration/fall/seizure precautions -10/12 CT C-spine shows lytic lesion involving C3 vertebral body, posterior elements and 3 cm right middle lung zone lung mass concerning for primary lung cancer -CIWA protocol -Patient c/o weakness to B UE/LE, tingling to BUE Cardio: SR, h/o HTN, CAD -resume home amlodipine, losartan -As needed hydralazine -Blood pressure monitor per protocol -uses home Aspirin -Resume home statin Respiratory: R lung mass, suspicious for adenocarcinoma -10/12 CT chest shows large mass within the right upper lung -Based on surgical path results, patient appears to have 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 -Surgical path demonstrates adenocarcinoma with suspected lung primary. Oncology consulted, follow recs -Patient is on Decadron -Transfuse for hemoglobin less than 7 -Trend CBC -SCDs to BLE while in bed -Chemical prophylaxis per nsgy ID: NAD, afebrile -Slight leukocytosis however the patient is on Decadron Dispo: C-collar and drain discontinued by neurosurgery. Consult case management for discharge planning/placement. Awaiting oncology input. Full code History Interval history: 10/19/2020: No acute overnight events. Per direction of neurosurgeon, drain is now discontinued and patient is out of c-collar. He is still experiencing some pain however states that pain control is adequate on my encounter. Awaiting oncology evaluation. 10/18/2020: No acute overnight events. Awaiting oncology to evaluate patient. 10/17/2020: No acute overnight events. Patient was working with physical therapy this morning. GISSEL drains noted to have some mild drainage about 1/4 full. No acute complaints otherwise other than pain which he is getting scheduled as needed pain medication for. 10/16: PEr nsgy ok to transfer to floor. No acute events overnight 10/15: Received 2 units plts preop, s/p C1-5 fusion, C3 laminectomy for removal of dorsal epidural tumor with nsgy, c-collar in place. CIWA protocol initiated overnight for agitation. 10/14: No acute events reported overnight, patient continues to refuse c-collar, scheduled for PS[facility] neurosurgery, 2 units plts preop. Hospitalist Physical - Physical exam Narrative exam: General appearance: Present: no acute distress, well-nourished, obese - EENT Eyes: Present: PERRL ENT: poor dentition - Neck Neck: No gross deformities noted. Patient has incision scar on posterior aspect of neck with overlying dressing. Drain and c-collar now discontinued - Respiratory Respiratory effort: normal Respiratory: bilateral: diminished - Cardiovascular Rhythm: regular Heart Sounds: Present: S1 & S2. Absent: systolic murmur, diastolic murmur - Extremities Extremities: no ischemia, pulses intact, pulses symmetrical Peripheral Pulses: within normal limits - Abdominal General gastrointestinal: soft, non-tender, non-distended, normal bowel sounds - Integumentary Integumentary: Present: warm, dry - Psychiatric Psychiatric: cooperative - Neurologic Neurologic: moves all extremities - Allied Health Allied health notes reviewed: nursing, RT, social work - Constitutional Vitals: Temp Pulse Resp BP Pulse Ox 97.7 F 84 18 158/81 97 10/19/20 08:04 10/19/20 05:32 10/19/20 08:04 10/19/20 08:04 10/19/20 09:04 General appearance: Present: no acute distress, well-nourished, obese Results - Labs CBC & Chem 7: 10/17/20 05:13 10/16/20 05:30 Labs: Laboratory Last Values WBC 16.2 K/mm3 (4.5-11.0) H 10/17/20 05:13 RBC 4.36 M/mm3 (3.65-5.03) 10/17/20 05:13 Hgb 12.7 gm/dl (11.8-15.2) 10/17/20 05:13 Hct 38.4 % (35.5-45.6) 10/17/20 05:13 MCV 88 fl (84-94) 10/17/20 05:13 MCH 29 pg (28-32) 10/17/20 05:13 MCHC 33 % (32-34) 10/17/20 05:13 RDW 14.9 % (13.2-15.2) 10/17/20 05:13 Plt Count 271 K/mm3 (140-440) 10/17/20 05:13 Lymph % (Auto) 8.8 % (13.4-35.0) L 10/13/20 03:54 Iron % (Auto) 4.0 % (0.0-7.3) 10/13/20 03:54 Eos % (Auto) 0.0 % (0.0-4.3) 10/13/20 03:54 Baso % (Auto) 0.2 % (0.0-1.8) 10/13/20 03:54 Lymph # (Auto) 1.0 K/mm3 (1.2-5.4) L 10/13/20 03:54 Iron # (Auto) 0.5 K/mm3 (0.0-0.8) 10/13/20 03:54 Eos # (Auto) 0.0 K/mm3 (0.0-0.4) 10/13/20 03:54 Baso # (Auto) 0.0 K/mm3 (0.0-0.1) 10/13/20 03:54 Seg Neutrophils % 87.0 % (40.0-70.0) H 10/13/20 03:54 Seg Neutrophils # 10.2 K/mm3 (1.8-7.7) H 10/13/20 03:54 PT 13.9 Sec. (12.2-14.9) 10/14/20 16:28 INR 1.01 (0.87-1.13) 10/14/20 16:28 APTT 26.2 Sec. (24.2-36.6) 10/12/20 08:37 Sodium 140 mmol/L (137-145) 10/16/20 05:30 Potassium 4.0 mmol/L (3.6-5.0) 10/16/20 05:30 Chloride 104.2 mmol/L (98-107) 10/16/20 05:30 Carbon Dioxide 25 mmol/L (22-30) 10/16/20 05:30 Anion Gap 15 mmol/L 10/16/20 05:30 BUN 22 mg/dL (9-20) H 10/16/20 05:30 Creatinine 0.7 mg/dL (0.8-1.3) L 10/16/20 05:30 Estimated GFR > 60 ml/min 10/16/20 05:30 BUN/Creatinine Ratio 31 % 10/16/20 05:30 Glucose 115 mg/dL (75-100) H 10/16/20 05:30 POC Glucose 142 mg/dL (70-105) H 10/19/20 08:03 Calcium 8.3 mg/dL (8.4-10.2) L 10/16/20 05:30 Magnesium 2.00 mg/dL (1.7-2.3) 10/12/20 08:37 Total Bilirubin 0.60 mg/dL (0.1-1.2) 10/13/20 03:54 AST 23 units/L (5-40) 10/13/20 03:54 ALT 28 units/L (7-56) 10/13/20 03:54 Alkaline Phosphatase 115 units/L (35-129) 10/13/20 03:54 Total Creatine Kinase 192 units/L (55-170) H 10/12/20 08:37 Total Protein 7.9 g/dL (6.3-8.2) 10/13/20 03:54 Albumin 4.6 g/dL (3.9-5) 10/13/20 03:54 Albumin/Globulin Ratio 1.4 % 10/13/20 03:54 Blood Type A POSITIVE 10/14/20 10:27 Antibody Screen Negative 10/14/20 10:27 Das/IV: Voiding Method Indwelling Catheter Active Medications - Current Medications Current Medications: Generic Name Dose Route Start Last Admin Trade Name Freq PRN Reason Stop Dose Admin Acetaminophen 650 mg 10/12/20 13:18 10/18/20 09:34 Acetaminophen 325 Mg Tab PO 650 mg Q6H PRN Administration Pain MILD(1-3)/Fever >100.5/SAENZ Albuterol 2.5 mg 10/12/20 13:18 Albuterol 2.5 Mg/3 Ml Nebu IH Q3HRT PRN Shortness Of Breath Amlodipine Besylate 10 mg 10/16/20 10:00 10/18/20 09:33 Amlodipine 10 Mg Tab PO 10 mg QDAY MIGUELINA Administration Atorvastatin Calcium 40 mg 10/14/20 22:00 10/18/20 21:20 Atorvastatin 40 Mg Tab PO 40 mg QHS MIGUELINA Administration Dextrose 50 ml 10/14/20 07:55 Dextrose 50% In Water (25gm) 50 Ml Syringe IV Q30MIN PRN Hypoglycemia Protocol Docusate Sodium 100 mg 10/14/20 22:00 10/18/20 21:21 Docusate Sodium 100 Mg Cap PO 100 mg BID MIGUELINA Administration Famotidine 20 mg 10/13/20 10:00 10/18/20 09:35 Famotidine 20 Mg Tab PO 20 mg QDAY MIGUELINA Administration Hydralazine HCl 10 mg 10/12/20 21:26 10/18/20 22:53 Hydralazine 20 Mg/1 Ml Inj IV 10 mg Q4HR PRN Administration Blood Pressure Hydromorphone HCl 0.5 mg 10/12/20 13:18 10/19/20 06:54 Hydromorphone 1 Mg/1 Ml Inj IV 0.5 mg Q3H PRN Administration Pain , Severe (7-10) Insulin Human Lispro 0 unit 10/14/20 11:30 10/19/20 08:31 Insulin Lispro 100 Unit/Ml SUB-Q Not Given ACHS MIGUELINA Protocol Methylprednisolone Sodium Succinate 40 mg 10/12/20 14:00 10/19/20 05:26 Methylprednisolone Sod Succinate 40 Mg/1 Ml Inj IV 40 mg Q8HR MIGUELINA Administration Oxycodone/Acetaminophen 2 tab 10/17/20 08:00 10/19/20 03:39 Oxycodone /Acetaminophen 5-325mg Tab PO 2 tab Q6H PRN Administration Pain, Moderate (4-6) Sodium Chloride 10 ml 10/12/20 22:00 10/18/20 21:21 Sodium Chloride 0.9% 10 Ml Flush Syringe IV 10 ml BID MIGUELINA Administration Sodium Chloride 10 ml 10/12/20 13:18 Sodium Chloride 0.9% 10 Ml Flush Syringe IV PRN PRN LINE FLUSH Valsartan 160 mg 10/17/20 10:00 10/18/20 09:34 Valsartan 160mg Tab PO 160 mg DAILY MIGUELINA Administration Nutrition/Malnutrition Assess - Dietary Evaluation Nutrition/Malnutrition Findings: Nutrition Notes Start: 10/18/20 12:45 Freq: Status: Active Protocol: Document 10/18/20 12:45 (Rec: 10/18/20 12:54 [email or web address]) Nutrition Notes Need for Assessment generated from: LOS Initial or Follow up Assessment Current Diagnosis Coronary Artery Disease, Hypertension Other Pertinent Diagnosis lung cancer with mets to bone Current Diet cardiac Labs/Tests reviewed Pertinent Medications Solu-medrol Height 5 ft 9 in Weight 89.6 kg Usual Body Weight 92.27 kg [place] Body Weight (kg) 72.72 BMI 29.1 Intake Prior to Admission Fair Weight change and time frame 2.8% wt loss in 3 weeks Weight Status Overweight Subjective/Other Information Screen for LOS. Pt with neck/ head brace that makes it difficult to chew. He does not want a modified diet but will take ONS. Burn Absent Trauma Absent GI Symptoms None Difficulty In Chewing Current % PO Poor (25-49%) Minimum of two criteria No Energy Intake (non-severe) <75% Estimated Energy Requirement >7 days #1 Nutrition Diagnosis Inadequate oral intake Etiology cord compression syndrome As Evidenced by Signs and Symptoms pt unable to eat well with neck/head brace Is patient on ventilator? No Is Patient Ambulatory and/or Out of Bed No REE-([facility]-confined to bed) 1963.584 Calculation Used for Recommendations [facility] Additional Notes Protein: (1-1.2g/kg) 90-108g Fluid: 1 ml/kcal Nutrition Intervention Change Diet Order: continue Add Supplement/Snack (indicate name/kcal Ensure Enlive TID /protein ) Provides kCal: 1,050 Provides Protein (gm) 60 Goal #1 Meet at least 75% of energy and protein needs via PO and ONS Anticipated Discharge Needs: Cardiac, soft foods, ONS PRN Follow-Up By: 10/22/20 Additional Comments FU for intakes and ONS tolerance
[2020-10-19] MEDS: DOCUSATE SODIUM 100 MG CAP PO SCH ×2 (10:08→22:01)
[2020-10-19] MEDS: FAMOTIDINE 20 MG TAB PO SCH (10:08)
[2020-10-19] MEDS: amLODIPine 10 MG TAB PO SCH (10:08)
[2020-10-19] MEDS: VALSARTAN 160MG TAB PO SCH (10:08)
--- NOTE | 2020-10-19 12:52 | Hem/Onc Consultation ---
History of Present Illness - Reason for Consult Consult date: 10/18/20 - History of Present Illness onc consult televisit via [facility] CPT: 11369 Dx: lung cancer 75yo previously active AA man with impressive alcohol use, with new dx metastatic lung cancer affecting spine. 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 Soc: , lives with family DATA REVIEWED BELOW Chest CT: 4cm RUL mass with associated LN's IMP: metastatic lung cancer affecting C spine, new diagnosis s/p C spine surgery and tumor biopsy REC: needs CT-guided lung tumor biopsy, when feasible, for molecular testing of lung tumor will need palliative chemotherapy and upper spine radiation after he heals from surgery plan in-person oncology referral after discharge steroid taper I discussed dx and prognosis with him via televisit Laboratory Last Values WBC 16.2 K/mm3 (4.5-11.0) H 10/17/20 05:13 Hgb 12.7 gm/dl (11.8-15.2) 10/17/20 05:13 Hct 38.4 % (35.5-45.6) 10/17/20 05:13 Plt Count 271 K/mm3 (140-440) 10/17/20 05:13 PT 13.9 Sec. (12.2-14.9) 10/14/20 16:28 INR 1.01 (0.87-1.13) 10/14/20 16:28 APTT 26.2 Sec. (24.2-36.6) 10/12/20 08:37 Creatinine 0.7 mg/dL (0.8-1.3) L 10/16/20 05:30 Calcium 8.3 mg/dL (8.4-10.2) L 10/16/20 05:30 Antibody Screen Negative 10/14/20 10:27 Active Medications Methylprednisolone Sodium Succinate (Methylprednisolone Sod Succinate 40 Mg/1 Ml Inj) 40 mg IV Q8HR MIGUELINA Last Admin: 10/19/20 05:26 Dose: 40 mg Documented by: Oxycodone/Acetaminophen (Oxycodone /Acetaminophen 5-325mg Tab) 2 tab PO Q6H PRN PRN Reason: Pain, Moderate (4-6) Last Admin: 10/19/20 10:08 Dose: 2 tab Documented by: Past History Past Medical History: hypertension, other (See HPI) Past Surgical History: No surgical history, Other (Reviewed) Social history: , lives with family. denies: smoking, alcohol abuse (he drinks 1-2 beers daily), prescription drug abuse Family history: hypertension Medications and Allergies Allergies Allergy/AdvReac Type Severity Reaction Status Date / Time No Known Allergies Allergy Unverified 01/27/19 03:48 Home Medications Medication Instructions Recorded Confirmed Last Taken Type Losartan [Cozaar] 25 mg PO QDAY 10/12/20 10/12/20 Unknown History Meloxicam [Mobic] 15 mg PO QDAY 10/12/20 10/12/20 Unknown History Rosuvastatin Calcium 40 mg PO QHS 10/12/20 10/12/20 Unknown History Tizanidine HCl 1 tab PO QHS 10/12/20 10/12/20 Unknown History amLODIPine [Norvasc] 5 mg PO DAILY 10/12/20 10/12/20 Unknown History traZODone [Desyrel] 50 mg PO QHS 10/12/20 10/12/20 Unknown History Active Meds: Active Medications Acetaminophen (Acetaminophen 325 Mg Tab) 650 mg PO Q6H PRN PRN Reason: Pain MILD(1-3)/Fever >100.5/SAENZ Last Admin: 10/18/20 09:34 Dose: 650 mg Documented by: Albuterol (Albuterol 2.5 Mg/3 Ml Nebu) 2.5 mg IH Q3HRT PRN PRN Reason: Shortness Of Breath Amlodipine Besylate (Amlodipine 10 Mg Tab) 10 mg PO QDAY [facility] Last Admin: 10/19/20 10:08 Dose: 10 mg Documented by: Atorvastatin Calcium (Atorvastatin 40 Mg Tab) 40 mg PO QHS [facility] Last Admin: 10/18/20 21:20 Dose: 40 mg Documented by: Dextrose (Dextrose 50% In Water (25gm) 50 Ml Syringe) 50 ml IV Q30MIN PRN; Protocol PRN Reason: Hypoglycemia Docusate Sodium (Docusate Sodium 100 Mg Cap) 100 mg PO BID [facility] Last Admin: 10/19/20 10:08 Dose: 100 mg Documented by: Famotidine (Famotidine 20 Mg Tab) 20 mg PO QDAY [facility] Last Admin: 10/19/20 10:08 Dose: 20 mg Documented by: Hydralazine HCl (Hydralazine 20 Mg/1 Ml Inj) 10 mg IV Q4HR PRN PRN Reason: Blood Pressure Last Admin: 10/18/20 22:53 Dose: 10 mg Documented by: Hydromorphone HCl (Hydromorphone 1 Mg/1 Ml Inj) 0.5 mg IV Q3H PRN PRN Reason: Pain , Severe (7-10) Last Admin: 10/19/20 06:54 Dose: 0.5 mg Documented by: Insulin Human Lispro (Insulin Lispro 100 Unit/Ml) 0 unit SUB-Q ACHS [facility]; Protocol Last Admin: 10/19/20 12:28 Dose: Not Given Documented by: Methylprednisolone Sodium Succinate (Methylprednisolone Sod Succinate 40 Mg/1 Ml Inj) 40 mg IV Q8HR [facility] Last Admin: 10/19/20 05:26 Dose: 40 mg Documented by: Oxycodone/Acetaminophen (Oxycodone /Acetaminophen 5-325mg Tab) 2 tab PO Q6H PRN PRN Reason: Pain, Moderate (4-6) Last Admin: 10/19/20 10:08 Dose: 2 tab Documented by: Sodium Chloride (Sodium Chloride 0.9% 10 Ml Flush Syringe) 10 ml IV BID [facility] Last Admin: 10/18/20 21:21 Dose: 10 ml Documented by: Sodium Chloride (Sodium Chloride 0.9% 10 Ml Flush Syringe) 10 ml IV PRN PRN PRN Reason: LINE FLUSH Valsartan (Valsartan 160mg Tab) 160 mg PO DAILY [facility] Last Admin: 10/19/20 10:08 Dose: 160 mg Documented by: Exam - Constitutional Vitals: Last Vital Signs Temp 98.3 F 10/19/20 11:16 Pulse 62 10/19/20 11:16 Resp 20 10/19/20 11:16 BP 151/72 10/19/20 11:16 Pulse Ox 83 L 10/19/20 11:16 Results - Labs lab Results: Laboratory Results - last 24 hr 10/18/20 10/18/20 10/19/20 16:42 21:26 08:03 POC Glucose 165 H 181 H 142 H 10/19/20 11:15 POC Glucose 130 H
[2020-10-19] MEDS: hydrALAZINE 20 MG/1 ML INJ IV PRN (22:00)
[2020-10-20] MEDS: HYDROmorphone 1 MG/1 ML INJ IV PRN ×4 (00:43→19:08)
[2020-10-20] MEDS: oxyCODONE /ACETAMINOPHEN 5-325MG TAB PO PRN ×4 (03:31→22:37)
[2020-10-20] MEDS: methylPREDNISolone Sod Succinate 40 MG/1 ML INJ IV SCH (06:00)
[2020-10-20] MEDS: INSULIN LISPRO 100 UNIT/ML SUB-Q SCH ×4 (08:31→22:29)
[2020-10-20] MEDS: VALSARTAN 160MG TAB PO SCH (09:00)
[2020-10-20] MEDS: FAMOTIDINE 20 MG TAB PO SCH (09:00)
[2020-10-20] MEDS: DOCUSATE SODIUM 100 MG CAP PO SCH ×2 (09:00→22:29)
[2020-10-20] MEDS: amLODIPine 10 MG TAB PO SCH (09:00)
--- NOTE | 2020-10-20 13:13 | Progress Note ---
Assessment and Plan Unstable cervical spine (lytic lesions) Metastatic disease Lung Mass (right lung) Hypertension Metabolic acidosis Continue all care as documented below Continue pain management with a bowel regimen PT/OT, increase activity - if needs lung biopsy, CT guided approach better re: Unstable c-spine issues - neurochecks per neurosurgeon - prn supplemental oxygen to keep O2 sats > 90% - prn bronchodilators (LAURI & LABA) with pulm hygiene per RT - systemic steroids re: cord edema per neurosurgery recs - continue mobility protocols to prevent pressure ulcers - Wound care per RN/WCT - accuchecks with glycemic control per SSI for target blood glucose < 180 mg/dL - Pharmacologic VTE prophylaxis per Neurosurgery recommendations - Influenza & pneumovax per protocol - continue other care per attending / other consultants ... re-evaluate in am & prn Subjective Date of service: 10/20/20 Principal diagnosis: Cord compression syn / Unstable C-spine; R. Lung Mass; HTN; Met. Acidosis Interval history: Patient is seen today for: Unstable cervical spine; R. 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; await oncology evaluation; states he is feeling better and is moving all his limbs. No diarrhea, no nausea or vomiting, no fevers or chills. No chest pain, no shortness of breath. Objective Vital Signs - 12hr 10/20/20 10/20/20 10/20/20 03:41 07:48 08:15 Temperature 98.5 F 98.9 F Pulse Rate 89 90 Respiratory 18 18 Rate Blood Pressure 167/82 Blood Pressure 153/66 [Left] O2 Sat by Pulse 96 98 97 Oximetry 10/20/20 10/20/20 10/20/20 08:59 10:44 12:00 Temperature 98.0 F Pulse Rate 97 H Respiratory 18 18 20 Rate Blood Pressure 150/82 Blood Pressure [Left] O2 Sat by Pulse 97 96 Oximetry 10/20/20 12:53 Temperature Pulse Rate Respiratory 18 Rate Blood Pressure Blood Pressure [Left] O2 Sat by Pulse Oximetry Constitutional: no acute distress, alert, other Eyes: non-icteric ENT: oropharynx moist Neck: supple, no lymphadenopathy, no JVD Effort: normal Ascultation: Bilateral: clear, diminished breath sounds Percussion: Bilateral: not dull Cardiovascular: regular rate and rhythm, other (S1,S2) Gastrointestinal: normoactive bowel sounds, soft, non-tender, non-distended Integumentary: normal Extremities: no cyanosis, no edema, pulses normal, no ischemia or petechiae Neurologic: normal mental status, pupils equal and round, CN II-XII normal, motor strength normal and, other Psychiatric: mood appropriate, affect normal CBC and BMP: 10/17/20 05:13 10/16/20 05:30 ABG, PT/INR, D-dimer: PT/INR, D-dimer PT 13.9 Sec. (12.2-14.9) 10/14/20 16:28 INR 1.01 (0.87-1.13) 10/14/20 16:28 Abnormal lab findings: Abnormal Labs 10/12/20 10/12/20 10/13/20 08:37 08:37 03:54 WBC 11.7 H MCHC 35 H Lymph % (Auto) 13.0 L 8.8 L Lymph # (Auto) 1.0 L Seg Neutrophils % 79.1 H 87.0 H Seg Neutrophils # 10.2 H Carbon Dioxide 21 L BUN Creatinine 0.6 L Glucose 105 H POC Glucose Calcium Total Creatine Kinase 192 H 10/13/20 10/13/20 10/15/20 03:54 11:40 07:03 WBC 14.7 H MCHC Lymph % (Auto) Lymph # (Auto) Seg Neutrophils % Seg Neutrophils # Carbon Dioxide 18 L BUN 23 H Creatinine Glucose 118 H POC Glucose 153 H Calcium Total Creatine Kinase 10/15/20 10/15/20 10/15/20 07:03 16:34 22:26 WBC MCHC Lymph % (Auto) Lymph # (Auto) Seg Neutrophils % Seg Neutrophils # Carbon Dioxide BUN 29 H Creatinine 0.7 L Glucose 115 H POC Glucose 107 H 106 H Calcium Total Creatine Kinase 10/16/20 10/16/20 10/16/20 05:30 05:30 07:44 WBC 17.6 H MCHC Lymph % (Auto) Lymph # (Auto) Seg Neutrophils % Seg Neutrophils # Carbon Dioxide BUN 22 H Creatinine 0.7 L Glucose 115 H POC Glucose 123 H Calcium 8.3 L Total Creatine Kinase 10/16/20 10/17/2021 11:43 05:13 07:13 WBC 16.2 H MCHC Lymph % (Auto) Lymph # (Auto) Seg Neutrophils % Seg Neutrophils # Carbon Dioxide BUN Creatinine Glucose POC Glucose 118 H 118 H Calcium Total Creatine Kinase 10/17/20 10/17/20 10/17/20 11:53 16:18 21:10 WBC MCHC Lymph % (Auto) Lymph # (Auto) Seg Neutrophils % Seg Neutrophils # Carbon Dioxide BUN Creatinine Glucose POC Glucose 116 H 137 H 115 H Calcium Total Creatine Kinase 10/18/20 10/18/20 10/18/20 07:43 11:14 16:42 WBC MCHC Lymph % (Auto) Lymph # (Auto) Seg Neutrophils % Seg Neutrophils # Carbon Dioxide BUN Creatinine Glucose POC Glucose 130 H 150 H 165 H Calcium Total Creatine Kinase 10/18/20 10/19/20 10/19/20 21:26 08:03 11:15 WBC MCHC Lymph % (Auto) Lymph # (Auto) Seg Neutrophils % Seg Neutrophils # Carbon Dioxide BUN Creatinine Glucose POC Glucose 181 H 142 H 130 H Calcium Total Creatine Kinase 10/19/20 10/19/20 10/20/20 15:53 21:43 07:46 WBC MCHC Lymph % (Auto) Lymph # (Auto) Seg Neutrophils % Seg Neutrophils # Carbon Dioxide BUN Creatinine Glucose POC Glucose 134 H 144 H 125 H Calcium Total Creatine Kinase 10/20/20 11:22 WBC MCHC Lymph % (Auto) Lymph # (Auto) Seg Neutrophils % Seg Neutrophils # Carbon Dioxide BUN Creatinine Glucose POC Glucose 177 H Calcium Total Creatine Kinase Allied health notes reviewed: nursing
--- NOTE | 2020-10-20 14:47 | Progress Note ---
Assessment and Plan Assessment and plan: 75 yo male with HTN admitted with severe cervical stenosis and cord compression 2/2 C3 lytic lesion with dorsal epidural space mass, metastatic disease, lung mass, metabolic acidosis Past Medical History: hypertension Past Surgical History: No surgical history Social history: , lives with family. denies: smoking, alcohol abuse (he drinks 1-2 beers daily), prescription drug abuse Home meds: mobic, tizandine, desyrel, amlodipine, losartan, rosuvastatin Neuro: Severe cervical stenosis and cord compression 2/2 C3 lytic lesion with dorsal epidural space mass status post C-spine surgery and tumor biopsy. -Neurosurgery following -C-collar per neurosurgery -10/15 s/p C1-5 fusion, C3 laminectomy for removal of dorsal epidural tumor (dorsal soft tissue mass sent to pathology for permanent specimen) -s/p 4 units platelets -Every 4 hour neurochecks -IV Decadron, will begin steroid taper. - prn Dilaudid and oxycodone -Aspiration/fall/seizure precautions -10/12 CT C-spine shows lytic lesion involving C3 vertebral body, posterior elements and 3 cm right middle lung zone lung mass concerning for primary lung cancer -[facility] protocol Cardio: SR, h/o HTN, CAD -resume home amlodipine, losartan -As needed hydralazine -Blood pressure monitor per protocol -uses home Aspirin -Resume home statin Respiratory: R lung mass, suspicious for adenocarcinoma -10/12 CT chest shows large mass within the right upper lung -Based on surgical path results, patient appears to have 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 GI: NAD -PPI: Pepcid -Diet: Cardiac diet -SSI, Accu-Cheks AC at bedtime -Bowel regimen: Colace -Avoid hypoglycemia : NAD -Condom catheter in place -24 hours net -1110 HemeOnc: Adenocarcinoma with lung primary. -Surgical path demonstrates adenocarcinoma with suspected lung primary. -Patient is on Decadron -Transfuse for hemoglobin less than 7 -Trend CBC -SCDs to BLE while in bed -Chemical prophylaxis per nsgy -Oncology recommends CT-guided lung tumor biopsy for molecular marker analysis when feasible for patient. Patient will need palliative chemotherapy and upper spine radiation. Can follow-up with oncology outpatient ID: [email or web address], [email or web address] -Slight leukocytosis however the patient is on Decadron Dispo: C-collar and drain discontinued by neurosurgery. Oncology recommendations as above. Will begin steroid taper. Consulted case management for discharge planning/rehab placement. Full code History Interval history: 10/20/2020: No acute overnight events. Patient today complaining of pain. Will adjust pain medication. Heme-onc evaluated patient. Recommended that patient get CT guided biopsy of lung mass, when this is feasible for patient. Patient will then need to undergo palliative chemotherapy and upper spine radiation as he heals from surgery. Recommends tapering of steroid dose. Consult placed to case management for acute rehab for patient. 10/19/2020: No acute overnight events. Per direction of neurosurgeon, drain is now discontinued and patient is out of c-collar. He is still experiencing some pain however states that pain control is adequate on my encounter. Awaiting oncology evaluation. 10/18/2020: No acute overnight events. Awaiting oncology to evaluate patient. 10/17/2020: No acute overnight events. Patient was working with physical therapy this morning. GISSEL drains noted to have some mild drainage about 1/4 full. No acute complaints otherwise other than pain which he is getting scheduled as needed pain medication for. 10/16: PEr nsgy ok to transfer to floor. No acute events overnight 10/15: Received 2 units plts preop, s/p C1-5 fusion, C3 laminectomy for removal of dorsal epidural tumor with nsgy, c-collar in place. CIWA protocol initiated overnight for agitation. 10/14: No acute events reported overnight, patient continues to refuse c-collar, scheduled for [facility] neurosurgery, 2 units plts preop. Hospitalist Physical - Physical exam Narrative exam: General appearance: Present: no acute distress, well-nourished, obese - EENT Eyes: Present: PERRL ENT: poor dentition - Neck Neck: No gross deformities noted. Patient has incision scar on posterior aspect of neck with overlying dressing. Drain and c-collar now discontinued - Respiratory Respiratory effort: normal Respiratory: bilateral: diminished - Cardiovascular Rhythm: regular Heart Sounds: Present: S1 & S2. Absent: systolic murmur, diastolic murmur - Extremities Extremities: no ischemia, pulses intact, pulses symmetrical Peripheral Pulses: within normal limits - Abdominal General gastrointestinal: soft, non-tender, non-distended, normal bowel sounds - Integumentary Integumentary: Present: warm, dry - Psychiatric Psychiatric: cooperative - Neurologic Neurologic: moves all extremities - Allied Health Allied health notes reviewed: nursing, RT, social work - Constitutional Vitals: Temp Pulse Resp BP Pulse Ox 98.0 F 97 H 18 150/82 96 10/20/20 10:44 10/20/20 10:44 10/20/20 12:53 10/20/20 10:44 10/20/20 12:00 General appearance: Present: no acute distress, well-nourished, obese Results - Labs CBC & Chem 7: 10/17/20 05:13 10/16/20 05:30 Labs: Laboratory Last Values WBC 16.2 K/mm3 (4.5-11.0) H 10/17/20 05:13 RBC 4.36 M/mm3 (3.65-5.03) 10/17/20 05:13 Hgb 12.7 gm/dl (11.8-15.2) 10/17/20 05:13 Hct 38.4 % (35.5-45.6) 10/17/20 05:13 MCV 88 fl (84-94) 10/17/20 05:13 MCH 29 pg (28-32) 10/17/20 05:13 MCHC 33 % (32-34) 10/17/20 05:13 RDW 14.9 % (13.2-15.2) 10/17/20 05:13 Plt Count 271 K/mm3 (140-440) 10/17/20 05:13 Lymph % (Auto) 8.8 % (13.4-35.0) L 10/13/20 03:54 [place] % (Auto) 4.0 % (0.0-7.3) 10/13/20 03:54 Eos % (Auto) 0.0 % (0.0-4.3) 10/13/20 03:54 Baso % (Auto) 0.2 % (0.0-1.8) 10/13/20 03:54 Lymph # (Auto) 1.0 K/mm3 (1.2-5.4) L 10/13/20 03:54 [place] # (Auto) 0.5 K/mm3 (0.0-0.8) 10/13/20 03:54 Eos # (Auto) 0.0 K/mm3 (0.0-0.4) 10/13/20 03:54 Baso # (Auto) 0.0 K/mm3 (0.0-0.1) 10/13/20 03:54 Seg Neutrophils % 87.0 % (40.0-70.0) H 10/13/20 03:54 Seg Neutrophils # 10.2 K/mm3 (1.8-7.7) H 10/13/20 03:54 PT 13.9 Sec. (12.2-14.9) 10/14/20 16:28 INR 1.01 (0.87-1.13) 10/14/20 16:28 APTT 26.2 Sec. (24.2-36.6) 10/12/20 08:37 Sodium 140 mmol/L (137-145) 10/16/20 05:30 Potassium 4.0 mmol/L (3.6-5.0) 10/16/20 05:30 Chloride 104.2 mmol/L (98-107) 10/16/20 05:30 Carbon Dioxide 25 mmol/L (22-30) 10/16/20 05:30 Anion Gap 15 mmol/L 10/16/20 05:30 BUN 22 mg/dL (9-20) H 10/16/20 05:30 Creatinine 0.7 mg/dL (0.8-1.3) L 10/16/20 05:30 Estimated GFR > 60 ml/min 10/16/20 05:30 BUN/Creatinine Ratio 31 % 10/16/20 05:30 Glucose 115 mg/dL (75-100) H 10/16/20 05:30 POC Glucose 177 mg/dL (70-105) H 10/20/20 11:22 Calcium 8.3 mg/dL (8.4-10.2) L 10/16/20 05:30 Magnesium 2.00 mg/dL (1.7-2.3) 10/12/20 08:37 Total Bilirubin 0.60 mg/dL (0.1-1.2) 10/13/20 03:54 AST 23 units/L (5-40) 10/13/20 03:54 ALT 28 units/L (7-56) 10/13/20 03:54 Alkaline Phosphatase 115 units/L (35-129) 10/13/20 03:54 Total Creatine Kinase 192 units/L (55-170) H 10/12/20 08:37 Total Protein 7.9 g/dL (6.3-8.2) 10/13/20 03:54 Albumin 4.6 g/dL (3.9-5) 10/13/20 03:54 Albumin/Globulin Ratio 1.4 % 10/13/20 03:54 Blood Type A POSITIVE 10/14/20 10:27 Antibody Screen Negative 10/14/20 10:27 Das/IV: Voiding Method Indwelling Catheter Active Medications - Current Medications Current Medications: Generic Name Dose Route Start Last Admin Trade Name Freq PRN Reason Stop Dose Admin Acetaminophen 650 mg 10/12/20 13:18 10/18/20 09:34 Acetaminophen 325 Mg Tab PO 650 mg Q6H PRN Administration Pain MILD(1-3)/Fever >100.5/SAENZ Albuterol 2.5 mg 10/12/20 13:18 Albuterol 2.5 Mg/3 Ml Nebu IH Q3HRT PRN Shortness Of Breath Amlodipine Besylate 10 mg 10/16/20 10:00 10/20/20 09:00 Amlodipine 10 Mg Tab PO 10 mg QDAY MIGUELINA Administration Atorvastatin Calcium 40 mg 10/14/20 22:00 10/19/20 22:01 Atorvastatin 40 Mg Tab PO 40 mg QHS MIGUELINA Administration Dextrose 50 ml 10/14/20 07:55 Dextrose 50% In Water (25gm) 50 Ml Syringe IV Q30MIN PRN Hypoglycemia Protocol Docusate Sodium 100 mg 10/14/20 22:00 10/20/20 09:00 Docusate Sodium 100 Mg Cap PO 100 mg BID MIGUELINA Administration Famotidine 20 mg 10/13/20 10:00 10/20/20 09:00 Famotidine 20 Mg Tab PO 20 mg QDAY MIGUELINA Administration Hydralazine HCl 10 mg 10/12/20 21:26 10/19/20 22:00 Hydralazine 20 Mg/1 Ml Inj IV 10 mg Q4HR PRN Administration Blood Pressure Hydromorphone HCl 0.5 mg 10/12/20 13:18 10/20/20 12:53 Hydromorphone 1 Mg/1 Ml Inj IV 0.5 mg Q3H PRN Administration Pain , Severe (7-10) Insulin Human Lispro 0 unit 10/14/20 11:30 10/20/20 12:06 Insulin Lispro 100 Unit/Ml SUB-Q 1 unit ACHS MIGUELINA Administration Protocol Methylprednisolone Sodium Succinate 40 mg 10/20/20 22:00 Methylprednisolone Sod Succinate 40 Mg/1 Ml Inj IV Q12HR MIGUELINA Oxycodone/Acetaminophen 2 tab 10/17/20 08:00 10/20/20 08:59 Oxycodone /Acetaminophen 5-325mg Tab PO 2 tab Q6H PRN Administration Pain, Moderate (4-6) Sodium Chloride 10 ml 10/12/20 22:00 10/20/20 09:00 Sodium Chloride 0.9% 10 Ml Flush Syringe IV 10 ml BID MIGUELINA Administration Sodium Chloride 10 ml 10/12/20 13:18 Sodium Chloride 0.9% 10 Ml Flush Syringe IV PRN PRN LINE FLUSH Valsartan 160 mg 10/17/20 10:00 10/20/20 09:00 Valsartan 160mg Tab PO 160 mg DAILY MIGUELINA Administration Nutrition/Malnutrition Assess - Dietary Evaluation Nutrition/Malnutrition Findings: Nutrition Notes Start: 10/18/20 12:45 Freq: Status: Active Protocol: Document 10/18/20 12:45 (Rec: 10/18/20 12:54 [id number]) Nutrition Notes Need for Assessment generated from: LOS Initial or Follow up Assessment Current Diagnosis Coronary Artery Disease, Hypertension Other Pertinent Diagnosis lung cancer with mets to bone Current Diet cardiac Labs/Tests reviewed Pertinent Medications Solu-medrol Height 5 ft 9 in Weight 89.6 kg Usual Body Weight 92.27 kg Excel Body Weight (kg) 72.72 BMI 29.1 Intake Prior to Admission Fair Weight change and time frame 2.8% wt loss in 3 weeks Weight Status Overweight Subjective/Other Information Screen for LOS. Pt with neck/ head brace that makes it difficult to chew. He does not want a modified diet but will take ONS. Burn Absent Trauma Absent GI Symptoms None Difficulty In Chewing Current % PO Poor (25-49%) Minimum of two criteria No Energy Intake (non-severe) <75% Estimated Energy Requirement >7 days #1 Nutrition Diagnosis Inadequate oral intake Etiology cord compression syndrome As Evidenced by Signs and Symptoms pt unable to eat well with neck/head brace Is patient on ventilator? No Is Patient Ambulatory and/or Out of Bed No REE-([facility]-confined to bed) 1963.584 Calculation Used for Recommendations [facility] Additional Notes Protein: (1-1.2g/kg) 90-108g Fluid: 1 ml/kcal Nutrition Intervention Change Diet Order: continue Add Supplement/Snack (indicate name/kcal Ensure Enlive TID /protein ) Provides kCal: 1,050 Provides Protein (gm) 60 Goal #1 Meet at least 75% of energy and protein needs via PO and ONS Anticipated Discharge Needs: Cardiac, soft foods, ONS PRN Follow-Up By: 10/22/20 Additional Comments FU for intakes and ONS tolerance
[2020-10-20] MEDS: hydrALAZINE 20 MG/1 ML INJ IV PRN (16:00)
[2020-10-20] MEDS ORDERED: methylPREDNISolone Sod Succinate 40 MG/1 ML INJ IV SCH (22:00)
[2020-10-21] MEDS: hydrALAZINE 20 MG/1 ML INJ IV PRN ×2 (01:00→20:31)
[2020-10-21] MEDS: HYDROmorphone 1 MG/1 ML INJ IV PRN ×4 (01:01→20:26)
[2020-10-21] MEDS: oxyCODONE /ACETAMINOPHEN 5-325MG TAB PO PRN ×3 (04:00→17:21)
[2020-10-21] MEDS: INSULIN LISPRO 100 UNIT/ML SUB-Q SCH ×4 (08:40→22:48)
[2020-10-21] MEDS: amLODIPine 10 MG TAB PO SCH (09:43)
[2020-10-21] MEDS: VALSARTAN 160MG TAB PO SCH (09:43)
[2020-10-21] MEDS: DOCUSATE SODIUM 100 MG CAP PO SCH ×2 (09:44→22:37)
[2020-10-21] MEDS: FAMOTIDINE 20 MG TAB PO SCH (09:44)
[2020-10-21] MEDS: methylPREDNISolone Sod Succinate 40 MG/1 ML INJ IV SCH (09:44)
--- NOTE | 2020-10-21 13:46 | Progress Note ---
Assessment and Plan 75 YO Male with HTN presents to ED for evaluation. Pt reports " I am hurting and I cannot walk". Patient states that he has experienced generalized weakness over the past 2 weeks with acutely worsening symptoms over the past 3 days. Patient reports he has experienced bilateral upper extremity muscle spasms, neck pain. Patient states that he is unable to hold objects in either hand and is unable to care for himself. Patient is currently bedbound, nonambulatory. Patient requires 6/6 assistance with activities of daily living and has a palliative performance score 30%. Patient underwent CT scan of the chest and was found to have a right lung lesion suspected to be a right lung malignancy With suspected metastatic disease to the spine complicated by cord compression syndrome. Total neurology team consulted, neurosurgery consulted, critical care team consulted in the emergency department. Patient admitted to ICU due to in creased risk of worsening symptoms. Patient treated with IV steroid therapy, supportive care. Patient denies fever, chills, chest pain, palpitation, productive cough, skin rash, recent ill contacts, known exposure to COVID-19. Patient transfered to surgical floor. Patient alert, awake. Resting on 2 litres o2. O2 saturation 96%. Denies chest oain, shortness of breath or cough at this time. Patient afebrile. Has leukocytosis. Patient has CT of chest 10/12/20 reported Large mass in the right upper lung with associated right hilar and paratracheal adenopathy. Findings concerning for malignancy/adenocarcinoma with metastatic farrah spread. Biopsy and follow-up recommended. CT of neck 10/12/20 reported Lesion involving the C3 vertebrae with cortical breakthrough and epidural extension resulting in moderate to severe spinal canal stenosis. The mass abuts the bilateral vertebral arteries in the transverse foramen at the C3 resulting in moderate stenosis of the left vertebral artery. The right vertebral artery is diminutive but there is no occlusion or significant stenosis. Soft tissue and bone, C3 epidural tumor, biopsy: on 10/15/20 reported Metastatic adenocarcinoma consistent with lung primary. Oncology consulted. - Patient Problems (1) Mass of right lung Current Visit: Yes Status: Acute Plan to address problem: Lkely adnocarcinoma of lng. Oncology consulted. (2) Lung cancer metastatic to bone Current Visit: Yes Status: Acute Plan to address problem: Biopsy of cervical mass and bone biopsy reported adenocarcinoma likly primary is lung. Oncology consulted. (3) Cord compression syndrome Current Visit: Yes Status: Acute Plan to address problem: From metastatic adenocarcinome. Oncology consulted. (4) Upper extremity weakness Current Visit: Yes Status: Acute Plan to address problem: Lkely from cord compression from adenocarcinoma. Oncology consulted. Subjective Date of service: 10/21/20 Principal diagnosis: Cord compression syn / Unstable C-spine; R. Lung Mass; HTN; Met. Acidosis Interval history: 75 YO Male with HTN presents to ED for evaluation. Pt reports " I am hurting and I cannot walk". Patient states that he has experienced generalized weakness over the past 2 weeks with acutely worsening symptoms over the past 3 days. Patient reports he has experienced bilateral upper extremity muscle spasms, neck pain. Patient states that he is unable to hold objects in either hand and is unable to care for himself. Patient is currently bedbound, nonambulatory. Patient requires 6/6 assistance with activities of daily living and has a palliative performance score 30%. Patient underwent CT scan of the chest and was found to have a right lung lesion suspected to be a right lung malignancy With suspected metastatic disease to the spine complicated by cord compression syndrome. Total neurology team consulted, neurosurgery consulted, critical care team consulted in the emergency department. Patient admitted to ICU due to increased risk of worsening symptoms. Patient treated with IV steroid therapy, supportive care. Patient denies fever, chills, chest pain, palpitation, productive cough, skin rash, recent ill contacts, known exposure to COVID-19. Patient transfered to surgical floor. Patient alert, awake. Resting on 2 litres o2. O2 saturation 96%. Denies chest oain, shortness of breath or cough at this time. Patient afebrile. Has leukocytosis. Patient has CT of chest 10/12/20 reported Large mass in the right upper lung with associated right hilar and paratracheal adenopathy. Findings concerning for malignancy/adenocarcinoma with metastatic farrah spread. Biopsy and follow-up recommended. CT of neck 10/12/20 reported Lesion involving the C3 vertebrae with cortical breakthrough and epidural extension resulting in moderate to severe spinal canal stenosis. The mass abuts the bilateral vertebral arteries in the transverse foramen at the C3 resulting in moderate stenosis of the left vertebral artery. The right vertebral artery is diminutive but there is no occlusion or significant stenosis. Soft tissue and bone, C3 epidural tumor, biopsy: on 10/15/20 reported Metastatic adenocarcinoma consistent with lung primary. Oncology consulted. Objective Vital Signs - 12hr 10/21/20 10/21/20 10/21/20 06:03 07:12 09:43 Temperature 98.8 F 98.3 F Pulse Rate 101 H 89 89 Respiratory 18 16 Rate Blood Pressure 155/72 144/69 144/69 O2 Sat by Pulse 98 98 Oximetry 10/21/20 11:22 Temperature 98.3 F Pulse Rate 84 Respiratory 16 Rate Blood Pressure 139/75 O2 Sat by Pulse 96 Oximetry Constitutional: no acute distress, alert, other (Weak. Resting in bed.) Eyes: non-icteric ENT: oropharynx moist Neck: supple, no lymphadenopathy, no JVD Effort: normal Ascultation: Bilateral: diminished breath sounds Percussion: Bilateral: not dull Cardiovascular: regular rate and rhythm, other (S1,S2) Gastrointestinal: normoactive bowel sounds, soft, non-tender, non-distended Integumentary: normal Extremities: no cyanosis, no edema, pulses normal, no ischemia or petechiae Neurologic: normal mental status, pupils equal and round, CN II-XII normal, motor strength normal and, other Psychiatric: mood appropriate, affect normal CBC and BMP: 10/17/20 05:13 10/16/20 05:30 ABG, PT/INR, D-dimer: PT/INR, D-dimer PT 13.9 Sec. (12.2-14.9) 10/14/20 16:28 INR 1.01 (0.87-1.13) 10/14/20 16:28 Abnormal lab findings: Abnormal Labs 10/12/20 10/12/20 10/13/20 08:37 08:37 03:54 WBC 11.7 H MCHC 35 H Lymph % (Auto) 13.0 L 8.8 L Lymph # (Auto) 1.0 L Seg Neutrophils % 79.1 H 87.0 H Seg Neutrophils # 10.2 H Carbon Dioxide 21 L BUN Creatinine 0.6 L Glucose 105 H POC Glucose Calcium Total Creatine Kinase 192 H 10/13/20 10/13/20 10/15/20 03:54 11:40 07:03 WBC 14.7 H MCHC Lymph % (Auto) Lymph # (Auto) Seg Neutrophils % Seg Neutrophils # Carbon Dioxide 18 L BUN 23 H Creatinine Glucose 118 H POC Glucose 153 H Calcium Total Creatine Kinase 10/15/20 10/15/20 10/15/20 07:03 16:34 22:26 WBC MCHC Lymph % (Auto) Lymph # (Auto) Seg Neutrophils % Seg Neutrophils # Carbon Dioxide BUN 29 H Creatinine 0.7 L Glucose 115 H POC Glucose 107 H 106 H Calcium Total Creatine Kinase 10/16/20 10/16/20 10/16/20 05:30 05:30 07:44 WBC 17.6 H MCHC Lymph % (Auto) Lymph # (Auto) Seg Neutrophils % Seg Neutrophils # Carbon Dioxide BUN 22 H Creatinine 0.7 L Glucose 115 H POC Glucose 123 H Calcium 8.3 L Total Creatine Kinase 10/16/20 10/17/20 10/17/20 11:43 05:13 07:13 WBC 16.2 H MCHC Lymph % (Auto) Lymph # (Auto) Seg Neutrophils % Seg Neutrophils # Carbon Dioxide BUN Creatinine Glucose POC Glucose 118 H 118 H Calcium Total Creatine Kinase 10/17/20 10/17/20 10/17/20 11:53 16:18 21:10 WBC MCHC Lymph % (Auto) Lymph # (Auto) Seg Neutrophils % Seg Neutrophils # Carbon Dioxide BUN Creatinine Glucose POC Glucose 116 H 137 H 115 H Calcium Total Creatine Kinase 10/18/20 10/18/20 10/18/20 07:43 11:14 16:42 WBC MCHC Lymph % (Auto) Lymph # (Auto) Seg Neutrophils % Seg Neutrophils # Carbon Dioxide BUN Creatinine Glucose POC Glucose 130 H 150 H 165 H Calcium Total Creatine Kinase 10/18/20 10/19/20 10/19/20 21:26 08:03 11:15 WBC MCHC Lymph % (Auto) Lymph # (Auto) Seg Neutrophils % Seg Neutrophils # Carbon Dioxide BUN Creatinine Glucose POC Glucose 181 H 142 H 130 H Calcium Total Creatine Kinase 10/19/20 10/19/20 10/20/20 15:53 21:43 07:46 WBC MCHC Lymph % (Auto) Lymph # (Auto) Seg Neutrophils % Seg Neutrophils # Carbon Dioxide BUN Creatinine Glucose POC Glucose 134 H 144 H 125 H Calcium Total Creatine Kinase 10/20/20 10/20/20 10/20/20 11:22 16:02 21:56 WBC MCHC Lymph % (Auto) Lymph # (Auto) Seg Neutrophils % Seg Neutrophils # Carbon Dioxide BUN Creatinine Glucose POC Glucose 177 H 107 H 116 H Calcium Total Creatine Kinase 10/21/20 10/21/20 07:12 11:20 WBC MCHC Lymph % (Auto) Lymph # (Auto) Seg Neutrophils % Seg Neutrophils # Carbon Dioxide BUN Creatinine Glucose POC Glucose 125 H 119 H Calcium Total Creatine Kinase CT scan - chest: report reviewed, image reviewed Additional Studies: CT CHEST WITH CONTRAST 10/12/20 INDICATION / CLINICAL INFORMATION: neck pain, cervical lesion. TECHNIQUE: Axial CT images were obtained through the chest after IV contrast. All CT scans at this location are performed using CT dose reduction for ALARA by means of automated exposure control. COMPARISON: None available. FINDINGS: There is a right upper lung mass measuring 4.0 x 2.8 cm. Mild atelectasis in the dependent portions of the lungs. There are prominent right hilar and paratracheal nodes. A right hilar node measures 1.8 cm. Heart appears normal. Visualized portions of the upper abdomen appear normal. Small axillary nodes. No acute bone findings are seen. IMPRESSION: 1. Large mass in the right upper lung with associated right hilar and paratrach eal adenopathy. Findings concerning for malignancy/adenocarcinoma with metastatic farrah spread. Biopsy and follow-up recommended. CT angio neck HISTORY: neck pain, cervical lesion OMNIPAQUE 350 100ML COMPARISON: None. TECHNIQUE: Routine CTA of the neck is performed. 3-D/MIP reformats were postprocessed. Percentage stenosis is determined by direct quantitative measurements of diseased internal carotid artery diameter compared with normal distal internal carotid artery reference segments or by criteria similar to NASCET where applicable. All CT scans at this location are performed using CT dose reduction for ALARA by means of automated exposure control. FINDINGS: Aortic arch: No significant abnormality. Cervical vertebral arteries: The mass breaks through the cortex at the C3 level and abuts the bilateral vertebral arteries in the transverse foramen. This results in moderate stenosis from external compression on the left vertebral artery. The right vertebral artery is diminutive but there is no occlusion or significant stenosis. Common Carotid arteries: No occlusion or hemodynamically significant stenosis. Internal carotid arteries: No occlusion or hemodynamically significant stenosis. Additional findings: 3.6 cm incompletely visualized right upper lobe mass. There is a mass seen involving the C3 vertebral bodies which is expanding the posterior elements. Cortical breakthrough with epidural extension and moderate to severe spinal canal stenosis. There is also involvement of the right C2 articular pillar as previously described on CT cervical spine. IMPRESSION: 1. Lesion involving the C3 vertebrae with cortical breakthrough and epidural extension resulting in moderate to severe spinal canal stenosis. The mass abuts the bilateral vertebral arteries in the transverse foramen at the C3 resulting in moderate stenosis of the left vertebral artery. The right vertebral artery is diminutive but there is no occlusion or significant stenosis. Allied health notes reviewed: nursing
--- NOTE | 2020-10-21 15:11 | Progress Note ---
Assessment and Plan Assessment and plan: 75 yo male with HTN admitted with severe cervical stenosis and cord compression 2/2 C3 lytic lesion with dorsal epidural space mass, metastatic disease, lung mass, metabolic acidosis Past Medical History: hypertension Past Surgical History: No surgical history Social history: , lives with family. denies: smoking, alcohol abuse (he drinks 1-2 beers daily), prescription drug abuse Home meds: mobic, tizandine, desyrel, amlodipine, losartan, rosuvastatin Neuro: Severe cervical stenosis and cord compression 2/2 C3 lytic lesion with dorsal epidural space mass status post C-spine surgery and tumor biopsy. -Neurosurgery following -C-collar per neurosurgery -10/15 s/p C1-5 fusion, C3 laminectomy for removal of dorsal epidural tumor (dorsal soft tissue mass sent to pathology for permanent specimen) -s/p 4 units platelets -Every 4 hour neurochecks -IV Decadron, will begin steroid taper. - prn Dilaudid and oxycodone -Aspiration/fall/seizure precautions -10/12 CT C-spine shows lytic lesion involving C3 vertebral body, posterior elements and 3 cm right middle lung zone lung mass concerning for primary lung cancer -[facility] protocol Cardio: SR, h/o HTN, CAD -resume home amlodipine, losartan -As needed hydralazine -Blood pressure monitor per protocol -uses home Aspirin -Resume home statin Respiratory: R lung mass, suspicious for adenocarcinoma -10/12 CT chest shows large mass within the right upper lung -Based on surgical path results, patient appears to have 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 GI: NAD -PPI: Pepcid -Diet: Cardiac diet -SSI, Accu-Cheks AC at bedtime -Bowel regimen: Colace -Avoid hypoglycemia : NAD -Condom catheter in place -24 hours net -1110 HemeOnc: Adenocarcinoma with lung primary. -Surgical path demonstrates adenocarcinoma with suspected lung primary. -Patient is on Decadron -Transfuse for hemoglobin less than 7 -Trend CBC -SCDs to BLE while in bed -Chemical prophylaxis per nsgy -Oncology recommends CT-guided lung tumor biopsy for molecular marker analysis when feasible for patient. Patient will need palliative chemotherapy and upper spine radiation. Can follow-up with oncology outpatient ID: [id number], adnnyebrile -Slight leukocytosis however the patient is on Decadron Dispo: C-collar and drain discontinued by neurosurgery. Oncology recommendations as above. Will begin steroid taper. Consulted case management for discharge planning/rehab placement. Full code History Interval history: 10/21/2020: 10/20/2020: No acute overnight events. Patient today complaining of pain. Will adjust pain medication. Heme-onc evaluated patient. Recommended that patient get CT guided biopsy of lung mass, when this is feasible for patient. Patient will then need to undergo palliative chemotherapy and upper spine radiation as he heals from surgery. Recommends tapering of steroid dose. Consult placed to case management for acute rehab for patient. 10/19/2020: No acute overnight events. Per direction of neurosurgeon, drain is now discontinued and patient is out of c-collar. He is still experiencing some pain however states that pain control is adequate on my encounter. Awaiting oncology evaluation. 10/18/2020: No acute overnight events. Awaiting oncology to evaluate patient. 10/17/2020: No acute overnight events. Patient was working with physical therapy this morning. GISSEL drains noted to have some mild drainage about 1/4 full. No acute complaints otherwise other than pain which he is getting scheduled as needed pain medication for. 10/16: PEr nsgy ok to transfer to floor. No acute events overnight 10/15: Received 2 units plts preop, s/p C1-5 fusion, C3 laminectomy for removal of dorsal epidural tumor with nsgy, c-collar in place. CIWA protocol initiated overnight for agitation. 10/14: No acute events reported overnight, patient continues to refuse c-collar, scheduled for [facility] neurosurgery, 2 units plts preop. Hospitalist Physical - Physical exam Narrative exam: General appearance: Present: no acute distress, well-nourished, obese - EENT Eyes: Present: PERRL ENT: poor dentition - Neck Neck: No gross deformities noted. Patient has incision scar on posterior aspect of neck with overlying dressing. Drain and c-collar now discontinued - Respiratory Respiratory effort: normal Respiratory: bilateral: diminished - Cardiovascular Rhythm: regular Heart Sounds: Present: S1 & S2. Absent: systolic murmur, diastolic murmur - Extremities Extremities: no ischemia, pulses intact, pulses symmetrical Peripheral Pulses: within normal limits - Abdominal General gastrointestinal: soft, non-tender, non-distended, normal bowel sounds - Integumentary Integumentary: Present: warm, dry - Psychiatric Psychiatric: cooperative - Neurologic Neurologic: moves all extremities - Allied Health Allied health notes reviewed: nursing, RT, social work - Constitutional Vitals: Temp Pulse Resp BP Pulse Ox 98.3 F 84 16 139/75 96 10/21/20 11:22 10/21/20 11:22 10/21/20 11:22 10/21/20 11:22 10/21/20 11:22 General appearance: Present: no acute distress, well-nourished, obese Results - Labs CBC & Chem 7: 10/17/20 05:13 10/16/20 05:30 Labs: Laboratory Last Values WBC 16.2 K/mm3 (4.5-11.0) H 10/17/20 05:13 RBC 4.36 M/mm3 (3.65-5.03) 10/17/20 05:13 Hgb 12.7 gm/dl (11.8-15.2) 10/17/20 05:13 Hct 38.4 % (35.5-45.6) 10/17/20 05:13 MCV 88 fl (84-94) 10/17/20 05:13 MCH 29 pg (28-32) 10/17/20 05:13 MCHC 33 % (32-34) 10/17/20 05:13 RDW 14.9 % (13.2-15.2) 10/17/20 05:13 Plt Count 271 K/mm3 (140-440) 10/17/20 05:13 Lymph % (Auto) 8.8 % (13.4-35.0) L 10/13/20 03:54 Bacon % (Auto) 4.0 % (0.0-7.3) 10/13/20 03:54 Eos % (Auto) 0.0 % (0.0-4.3) 10/13/20 03:54 Baso % (Auto) 0.2 % (0.0-1.8) 10/13/20 03:54 Lymph # (Auto) 1.0 K/mm3 (1.2-5.4) L 10/13/20 03:54 Bacon # (Auto) 0.5 K/mm3 (0.0-0.8) 10/13/20 03:54 Eos # (Auto) 0.0 K/mm3 (0.0-0.4) 10/13/20 03:54 Baso # (Auto) 0.0 K/mm3 (0.0-0.1) 10/13/20 03:54 Seg Neutrophils % 87.0 % (40.0-70.0) H 10/13/20 03:54 Seg Neutrophils # 10.2 K/mm3 (1.8-7.7) H 10/13/20 03:54 PT 13.9 Sec. (12.2-14.9) 10/14/20 16:28 INR 1.01 (0.87-1.13) 10/14/20 16:28 APTT 26.2 Sec. (24.2-36.6) 10/12/20 08:37 Sodium 140 mmol/L (137-145) 10/16/20 05:30 Potassium 4.0 mmol/L (3.6-5.0) 10/16/20 05:30 Chloride 104.2 mmol/L (98-107) 10/16/20 05:30 Carbon Dioxide 25 mmol/L (22-30) 10/16/20 05:30 Anion Gap 15 mmol/L 10/16/20 05:30 BUN 22 mg/dL (9-20) H 10/16/20 05:30 Creatinine 0.7 mg/dL (0.8-1.3) L 10/16/20 05:30 Estimated GFR > 60 ml/min 10/16/20 05:30 BUN/Creatinine Ratio 31 % 10/16/20 05:30 Glucose 115 mg/dL (75-100) H 10/16/20 05:30 POC Glucose 119 mg/dL (70-105) H 10/21/20 11:20 Calcium 8.3 mg/dL (8.4-10.2) L 10/16/20 05:30 Magnesium 2.00 mg/dL (1.7-2.3) 10/12/20 08:37 Total Bilirubin 0.60 mg/dL (0.1-1.2) 10/13/20 03:54 AST 23 units/L (5-40) 10/13/20 03:54 ALT 28 units/L (7-56) 10/13/20 03:54 Alkaline Phosphatase 115 units/L (35-129) 10/13/20 03:54 Total Creatine Kinase 192 units/L (55-170) H 10/12/20 08:37 Total Protein 7.9 g/dL (6.3-8.2) 10/13/20 03:54 Albumin 4.6 g/dL (3.9-5) 10/13/20 03:54 Albumin/Globulin Ratio 1.4 % 10/13/20 03:54 Blood Type A POSITIVE 10/14/20 10:27 Antibody Screen Negative 10/14/20 10:27 Das/IV: Voiding Method Indwelling Catheter Active Medications - Current Medications Current Medications: Generic Name Dose Route Start Last Admin Trade Name Freq PRN Reason Stop Dose Admin Acetaminophen 650 mg 10/12/20 13:18 10/18/20 09:34 Acetaminophen 325 Mg Tab PO 650 mg Q6H PRN Administration Pain MILD(1-3)/Fever >100.5/SAENZ Albuterol 2.5 mg 10/12/20 13:18 Albuterol 2.5 Mg/3 Ml Nebu IH Q3HRT PRN Shortness Of Breath Amlodipine Besylate 10 mg 10/16/20 10:00 10/21/20 09:43 Amlodipine 10 Mg Tab PO 10 mg QDAY MIGUELINA Administration Atorvastatin Calcium 40 mg 10/14/20 22:00 10/20/20 22:29 Atorvastatin 40 Mg Tab PO 40 mg QHS MIGUELINA Administration Dextrose 50 ml 10/14/20 07:55 Dextrose 50% In Water (25gm) 50 Ml Syringe IV Q30MIN PRN Hypoglycemia Protocol Docusate Sodium 100 mg 10/14/20 22:00 10/21/20 09:44 Docusate Sodium 100 Mg Cap PO 100 mg BID MIGUELINA Administration Famotidine 20 mg 10/13/20 10:00 10/21/20 09:44 Famotidine 20 Mg Tab PO 20 mg QDAY MIGUELINA Administration Hydralazine HCl 10 mg 10/12/20 21:26 10/21/20 01:00 Hydralazine 20 Mg/1 Ml Inj IV 10 mg Q4HR PRN Administration Blood Pressure Hydromorphone HCl 0.5 mg 10/12/20 13:18 10/21/20 13:24 Hydromorphone 1 Mg/1 Ml Inj IV 0.5 mg Q3H PRN Administration Pain , Severe (7-10) Insulin Human Lispro 0 unit 10/14/20 11:30 10/21/20 12:00 Insulin Lispro 100 Unit/Ml SUB-Q Not Given ACHS [facility] Protocol Methylprednisolone Sodium Succinate 40 mg 10/21/20 10:00 10/21/20 09:44 Methylprednisolone Sod Succinate 40 Mg/1 Ml Inj IV 40 mg Q24HR MIGUELINA Administration Oxycodone/Acetaminophen 2 tab 10/20/20 14:48 10/21/20 10:13 Oxycodone /Acetaminophen 5-325mg Tab PO 2 tab Q4H PRN Administration Pain, Moderate (4-6) Sodium Chloride 10 ml 10/12/20 22:00 10/20/20 22:30 Sodium Chloride 0.9% 10 Ml Flush Syringe IV 10 ml BID MIGUELINA Administration Sodium Chloride 10 ml 10/12/20 13:18 Sodium Chloride 0.9% 10 Ml Flush Syringe IV PRN PRN LINE FLUSH Valsartan 160 mg 10/17/20 10:00 10/21/20 09:43 Valsartan 160mg Tab PO 160 mg DAILY MIGUELINA Administration Nutrition/Malnutrition Assess - Dietary Evaluation Nutrition/Malnutrition Findings: Nutrition Notes Start: 10/18/20 12:45 Freq: Status: Active Protocol: Document 10/18/20 12:45 (Rec: 10/18/20 12:54 [id number]) Nutrition Notes Need for Assessment generated from: LOS Initial or Follow up Assessment Current Diagnosis Coronary Artery Disease, Hypertension Other Pertinent Diagnosis lung cancer with mets to bone Current Diet cardiac Labs/Tests reviewed Pertinent Medications Solu-medrol Height 5 ft 9 in Weight 89.6 kg Usual Body Weight 92.27 kg [place] Body Weight (kg) 72.72 BMI 29.1 Intake Prior to Admission Fair Weight change and time frame 2.8% wt loss in 3 weeks Weight Status Overweight Subjective/Other Information Screen for LOS. Pt with neck/ head brace that makes it difficult to chew. He does not want a modified diet but will take ONS. Burn Absent Trauma Absent GI Symptoms None Difficulty In Chewing Current % PO Poor (25-49%) Minimum of two criteria No Energy Intake (non-severe) <75% Estimated Energy Requirement >7 days #1 Nutrition Diagnosis Inadequate oral intake Etiology cord compression syndrome As Evidenced by Signs and Symptoms pt unable to eat well with neck/head brace Is patient on ventilator? No Is Patient Ambulatory and/or Out of Bed No REE-([facility]-confined to bed) [phone] Calculation Used for Recommendations [facility] Additional Notes Protein: (1-1.2g/kg) 90-108g Fluid: 1 ml/kcal Nutrition Intervention Change Diet Order: continue Add Supplement/Snack (indicate name/kcal Ensure Enlive TID /protein ) Provides kCal: 1,050 Provides Protein (gm) 60 Goal #1 Meet at least 75% of energy and protein needs via PO and ONS Anticipated Discharge Needs: Cardiac, soft foods, ONS PRN Follow-Up By: 10/22/20 Additional Comments FU for intakes and ONS tolerance
--- NOTE | 2020-10-21 15:36 | Discharge Summary ---
Providers - Providers Date of Admission: 10/12/20 13:18 Date of discharge: 10/21/20 Attending physician: EARL ESPARZA MD 10/12/20 10:49 Consult to Physician [CONS] Stat Comment: Consulting Provider: GEORGE LYNN II Physician Instructions: Reason For Exam: spine lesion 10/12/20 10:50 Consult to Physician [CONS] Urgent Comment: Consulting Provider: YVETTE ANTHONY Physician Instructions: Reason For Exam: cervical cord lesion 10/17/20 07:33 Occupational Therapy Evaluate and Treat [CONS] Routine Comment: Reason For Exam: s/p NSG c-spine Physical Therapy Evaluation and Treat [CONS] Routine Comment: Reason For Exam: s/p NSG c-spine 10/17/20 07:34 Consult to Case Management [CONS] Routine Services Needed at Discharge: Other Notified:: cm notified Comment:: d/c planning, placement, will likely need rehab 10/17/20 15:43 Consult to Physician [CONS] Routine Comment: Consulting Provider: BLANCA SWEENEY Physician Instructions: Reason For Exam: Metastatic AdenoCA of Lung Origin 10/20/20 08:19 Consult to Case Management [CONS] Routine Services Needed at Discharge: Physical Therapy Notified:: cm notified Comment:: acute rehab placement Hospitalization Reason for admission: numbness tingling Condition: Critical Hospital course: Assessment and plan: 75 yo male with HTN admitted with severe cervical stenosis and cord compression 2/2 C3 lytic lesion with dorsal epidural space mass, metastatic disease, lung mass, metabolic acidosis Past Medical History: hypertension Past Surgical History: No surgical history Social history: , lives with family. denies: smoking, alcohol abuse (he drinks 1-2 beers daily), prescription drug abuse Home meds: mobic, tizandine, desyrel, amlodipine, losartan, rosuvastatin Neuro: Severe cervical stenosis and cord compression 2/2 C3 lytic lesion with dorsal epidural space mass status post C-spine surgery and tumor biopsy. -Neurosurgery following -C-collar per neurosurgery -10/15 s/p C1-5 fusion, C3 laminectomy for removal of dorsal epidural tumor (dorsal soft tissue mass sent to pathology for permanent specimen) -s/p 4 units platelets -Every 4 hour neurochecks -IV Decadron, will begin steroid taper. - prn Dilaudid and oxycodone -Aspiration/fall/seizure precautions -10/12 CT C-spine shows lytic lesion involving C3 vertebral body, posterior elements and 3 cm right middle lung zone lung mass concerning for primary lung cancer -[facility] protocol Cardio: SR, h/o HTN, CAD -resume home amlodipine, losartan -As needed hydralazine -Blood pressure monitor per protocol -uses home Aspirin -Resume home statin Respiratory: R lung mass, suspicious for adenocarcinoma -10/12 CT chest shows large mass within the right upper lung -Based on surgical path results, patient appears to have 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 GI: NAD -PPI: Pepcid -Diet: Cardiac diet -SSI, Accu-Cheks AC at bedtime -Bowel regimen: Colace -Avoid hypoglycemia : NAD -Condom catheter in place -24 hours net -1110 HemeOnc: Adenocarcinoma with lung primary. -Surgical path demonstrates adenocarcinoma with suspected lung primary. -Patient is on Decadron -Transfuse for hemoglobin less than 7 -Trend CBC -SCDs to BLE while in bed -Chemical prophylaxis per nsgy -Oncology recommends CT-guided lung tumor biopsy for molecular marker analysis when feasible for patient. Patient will need palliative chemotherapy and upper spine radiation. Can follow-up with oncology outpatient ID: NAD, afebrile -Slight leukocytosis however the patient is on Decadron Dispo: C-collar and drain discontinued by neurosurgery. Oncology recommendations as above. Will begin steroid taper. Consulted case management for discharge planning/rehab placement. Full code History Interval history: 10/21/2020: Acute inpatient rehab arrangements being made. Patient will have d/c order with rx for amlodipine, valsartan, prednisone taper, and percocet. 10/20/2020: No acute overnight events. Patient today complaining of pain. Will adjust pain medication. Heme-onc evaluated patient. Recommended that patient get CT guided biopsy of lung mass, when this is feasible for patient. Patient will then need to undergo palliative chemotherapy and upper spine radiation as he heals from surgery. Recommends tapering of steroid dose. Consult placed to case management for acute rehab for patient. 10/19/2020: No acute overnight events. Per direction of neurosurgeon, drain is now discontinued and patient is out of c-collar. He is still experiencing some pain however states that pain control is adequate on my encounter. Awaiting oncology evaluation. 10/18/2020: No acute overnight events. Awaiting oncology to evaluate patient. 10/17/2020: No acute overnight events. Patient was working with physical therapy this morning. GISSEL drains noted to have some mild drainage about 1/4 full. No acute complaints otherwise other than pain which he is getting scheduled as needed pain medication for. 10/16: PEr nsgy ok to transfer to floor. No acute events overnight 10/15: Received 2 units plts preop, s/p C1-5 fusion, C3 laminectomy for removal of dorsal epidural tumor with nsgy, c-collar in place. CIWA protocol initiated overnight for agitation. 10/14: No acute events reported overnight, patient continues to refuse c-collar, scheduled for [facility] neurosurgery, 2 units plts preop. Disposition: [id number] IN REHAB FACILITY Final Discharge Diagnosis (Prints w/discharge instructions): cord compression syndrome, metastatic adenocarcinoma Time spent for discharge: 35 - Discharge Diagnoses (1) Advance care planning Status: Acute (2) Cervical pain (neck) Status: Acute (3) Cord compression syndrome Status: Acute (4) Lesion of bone of cervical spine Status: Acute (5) Lung cancer metastatic to bone Status: Acute (6) Mass of right lung Status: Acute (7) Upper extremity weakness Status: Acute Core Measure Documentation - Palliative Care Palliative Care/ Comfort Measures: Not Applicable - Core Measures Any of the following diagnoses?: none Exam - Physical Exam Narrative exam: - Physical exam Narrative exam: General appearance: Present: no acute distress, well-nourished, obese - EENT Eyes: Present: PERRL ENT: poor dentition - Neck Neck: No gross deformities noted. Patient has incision scar on posterior aspect of neck with overlying dressing. Drain and c-collar now discontinued. C- collar in place. - Respiratory Respiratory effort: normal Respiratory: bilateral: diminished - Cardiovascular Rhythm: regular Heart Sounds: Present: S1 & S2. Absent: systolic murmur, diastolic murmur - Extremities Extremities: no ischemia, pulses intact, pulses symmetrical Peripheral Pulses: within normal limits - Abdominal General gastrointestinal: soft, non-tender, non-distended, normal bowel sounds - Integumentary Integumentary: Present: warm, dry - Psychiatric Psychiatric: cooperative - Neurologic Neurologic: moves all extremities - Allied Health Allied health notes reviewed: nursing, RT, social work - Constitutional Vitals: - Constitutional Vitals: Temp Pulse Resp BP Pulse Ox 98.3 F 84 16 139/75 96 10/21/20 11:22 10/21/20 11:22 10/21/20 11:22 10/21/20 11:22 10/21/20 11:22 Plan Follow up with: [facility] [Other] - 3-5 Days Prescriptions: AtorvaSTATin [Lipitor] 40 mg PO QHS 30 Days #30 tablet predniSONE [Deltasone] 5 mg PO .TAPER #48 tab Valsartan [Diovan] 160 mg PO DAILY 30 Days #30 tablet oxyCODONE /ACETAMINOPHEN [Percocet 5/325 mg] 2 tab PO Q4H PRN 3 Days #36 tablet PRN Reason: Pain, Moderate (4-6)
[2020-10-22] MEDS: oxyCODONE /ACETAMINOPHEN 5-325MG TAB PO PRN ×5 (00:41→23:29)
[2020-10-22] MEDS: HYDROmorphone 1 MG/1 ML INJ IV PRN ×3 (05:00→20:29)
[2020-10-22] MEDS: INSULIN LISPRO 100 UNIT/ML SUB-Q SCH ×4 (07:30→23:16)
--- NOTE | 2020-10-22 08:34 | Progress Note ---
Assessment and Plan 75 YO Male with HTN presents to ED for evaluation. Pt reports " I am hurting and I cannot walk". Patient states that he has experienced generalized weakness over the past 2 weeks with acutely worsening symptoms over the past 3 days. Patient reports he has experienced bilateral upper extremity muscle spasms, neck pain. Patient states that he is unable to hold objects in either hand and is unable to care for himself. Patient is currently bedbound, nonambulatory. Patient requires 6/6 assistance with activities of daily living and has a palliative performance score 30%. Patient underwent CT scan of the chest and was found to have a right lung lesion suspected to be a right lung malignancy With suspected metastatic disease to the spine complicated by cord compression syndrome. Total neurology team consulted, neurosurgery consulted, critical care team consulted in the emergency department. Patient admitted to ICU due to in creased risk of worsening symptoms. Patient treated with IV steroid therapy, supportive care. Patient denies fever, chills, chest pain, palpitation, productive cough, skin rash, recent ill contacts, known exposure to COVID-19. Patient has CT of chest 10/12/20 reported Large mass in the right upper lung with associated right hilar and paratracheal adenopathy. Findings concerning for malignancy/adenocarcinoma with metastatic farrah spread. Biopsy and follow-up recommended. CT of neck 10/12/20 reported Lesion involving the C3 vertebrae with cortical breakthrough and epidural extension resulting in moderate to severe spinal canal stenosis. The mass abuts the bilateral vertebral arteries in the transverse foramen at the C3 resulting in moderate stenosis of the left vertebral artery. The right vertebral artery is diminutive but there is no occlusion or significant stenosis. Soft tissue and bone, C3 epidural tumor, biopsy: on 10/15/20 reported Metastatic adenocarcinoma consistent with lung primary. Oncology consulted. Patient alert, awake.Patient Resting on 2 litres o2. O2 saturation 97%. Denies chest oain, shortness of breath or cough at this time. Patient afebrile. Has l eukocytosis. Oncology on consult. Further management of metastatic CA based oncology recommendations. - Patient Problems (1) Mass of right lung Current Visit: Yes Status: Acute Plan to address problem: Lkely adnocarcinoma of lng. Oncology consulted. (2) Lung cancer metastatic to bone Current Visit: Yes Status: Acute Plan to address problem: Biopsy of cervical mass and bone biopsy reported adenocarcinoma likly primary is lung. Oncology consulted. (3) Cord compression syndrome Current Visit: Yes Status: Acute Plan to address problem: From metastatic adenocarcinome. Oncology consulted. (4) Upper extremity weakness Current Visit: Yes Status: Acute Plan to address problem: Lkely from cord compression from adenocarcinoma. Oncology consulted. Subjective Date of service: 10/22/20 Principal diagnosis: Cord compression syn / Unstable C-spine; R. Lung Mass; HTN; Met. Acidosis Interval history: 75 YO Male with HTN presents to ED for evaluation. Pt reports " I am hurting and I cannot walk". Patient states that he has experienced generalized weakness over the past 2 weeks with acutely worsening symptoms over the past 3 days. Patient reports he has experienced bilateral upper extremity muscle spasms, neck pain. Patient states that he is unable to hold objects in either hand and is unable to care for himself. Patient is currently bedbound, nonambulatory. Patient requires 6/6 assistance with activities of daily living and has a palliative performance score 30%. Patient underwent CT scan of the chest and was found to have a right lung lesion suspected to be a right lung malignancy With suspected metastatic disease to the spine complicated by cord compression syndrome. Total neurology team consulted, neurosurgery consulted, critical care team consulted in the emergency department. Patient admitted to ICU due to increased risk of worsening symptoms. Patient treated with IV steroid therapy, supportive care. Patient denies fever, chills, chest pain, palpitation, productive cough, skin rash, recent ill contacts, known exposure to COVID-19. Patient has CT of chest 10/12/20 reported Large mass in the right upper lung with associated right hilar and paratracheal adenopathy. Findings concerning for malignancy/adenocarcinoma with metastatic farrah spread. Biopsy and follow-up recommended. CT of neck 10/12/20 reported Lesion involving the C3 vertebrae with cortical breakthrough and epidural extension resulting in moderate to severe spinal canal stenosis. The mass abuts the bilateral vertebral arteries in the transverse foramen at the C3 resulting in moderate stenosis of the left vertebral artery. The right vertebral artery is diminutive but there is no occlusion or significant stenosis. Soft tissue and bone, C3 epidural tumor, biopsy: on 10/15/20 reported Metastatic adenocarcinoma consistent with lung primary. Oncology consulted. Patient alert, awake.Patient Resting on 2 litres o2. O2 saturation 97%. Denies chest oain, shortness of breath or cough at this time. Patient afebrile. Has leukocytosis. Oncology on consult. Further management of metastatic CA based oncology recommendations. Objective Vital Signs - 12hr 10/21/20 10/21/20 10/21/20 21:27 22:15 23:33 Temperature 98.5 F Pulse Rate 96 H Respiratory 20 Rate Blood Pressure 155/66 O2 Sat by Pulse 96 97 94 Oximetry 10/22/20 10/22/20 10/22/20 00:41 05:49 07:13 Temperature 98.6 F 98.5 F Pulse Rate 74 78 Respiratory 17 20 16 Rate Blood Pressure 142/67 138/69 O2 Sat by Pulse 100 97 Oximetry Constitutional: no acute distress, alert, other (Weak. Resting in bed.) Eyes: non-icteric ENT: oropharynx moist Neck: supple, no lymphadenopathy, no JVD Effort: normal Ascultation: Bilateral: diminished breath sounds Percussion: Bilateral: not dull Cardiovascular: regular rate and rhythm, other (S1,S2) Gastrointestinal: normoactive bowel sounds, soft, non-tender, non-distended Integumentary: normal Extremities: no cyanosis, no edema, pulses normal, no ischemia or petechiae Neurologic: normal mental status, pupils equal and round, CN II-XII normal, motor strength normal and, other Psychiatric: mood appropriate, affect normal CBC and BMP: 10/17/20 05:13 10/16/20 05:30 ABG, PT/INR, D-dimer: PT/INR, D-dimer PT 13.9 Sec. (12.2-14.9) 10/14/20 16:28 INR 1.01 (0.87-1.13) 10/14/20 16:28 Abnormal lab findings: Abnormal Labs 10/12/20 10/12/20 10/13/20 08:37 08:37 03:54 WBC 11.7 H MCHC 35 H Lymph % (Auto) 13.0 L 8.8 L Lymph # (Auto) 1.0 L Seg Neutrophils % 79.1 H 87.0 H Seg Neutrophils # 10.2 H Carbon Dioxide 21 L BUN Creatinine 0.6 L Glucose 105 H POC Glucose Calcium Total Creatine Kinase 192 H 10/13/20 10/13/20 10/15/20 03:54 11:40 07:03 WBC 14.7 H MCHC Lymph % (Auto) Lymph # (Auto) Seg Neutrophils % Seg Neutrophils # Carbon Dioxide 18 L BUN 23 H Creatinine Glucose 118 H POC Glucose 153 H Calcium Total Creatine Kinase 10/15/20 10/15/20 10/15/20 07:03 16:34 22:26 WBC MCHC Lymph % (Auto) Lymph # (Auto) Seg Neutrophils % Seg Neutrophils # Carbon Dioxide BUN 29 H Creatinine 0.7 L Glucose 115 H POC Glucose 107 H 106 H Calcium Total Creatine Kinase 10/16/20 10/16/20 10/16/20 05:30 05:30 07:44 WBC 17.6 H MCHC Lymph % (Auto) Lymph # (Auto) Seg Neutrophils % Seg Neutrophils # Carbon Dioxide BUN 22 H Creatinine 0.7 L Glucose 115 H POC Glucose 123 H Calcium 8.3 L Total Creatine Kinase 10/16/20 10/17/20 10/17/20 11:43 05:13 07:13 WBC 16.2 H MCHC Lymph % (Auto) Lymph # (Auto) Seg Neutrophils % Seg Neutrophils # Carbon Dioxide BUN Creatinine Glucose POC Glucose 118 H 118 H Calcium Total Creatine Kinase 10/17/20 10/17/20 10/17/20 11:53 16:18 21:10 WBC MCHC Lymph % (Auto) Lymph # (Auto) Seg Neutrophils % Seg Neutrophils # Carbon Dioxide BUN Creatinine Glucose POC Glucose 116 H 137 H 115 H Calcium Total Creatine Kinase 10/18/20 10/18/20 10/18/20 07:43 11:14 16:42 WBC MCHC Lymph % (Auto) Lymph # (Auto) Seg Neutrophils % Seg Neutrophils # Carbon Dioxide BUN Creatinine Glucose POC Glucose 130 H 150 H 165 H Calcium Total Creatine Kinase 10/18/20 10/19/20 10/19/20 21:26 08:03 11:15 WBC MCHC Lymph % (Auto) Lymph # (Auto) Seg Neutrophils % Seg Neutrophils # Carbon Dioxide BUN Creatinine Glucose POC Glucose 181 H 142 H 130 H Calcium Total Creatine Kinase 10/19/20 10/19/20 10/20/20 15:53 21:43 07:46 WBC MCHC Lymph % (Auto) Lymph # (Auto) Seg Neutrophils % Seg Neutrophils # Carbon Dioxide BUN Creatinine Glucose POC Glucose 134 H 144 H 125 H Calcium Total Creatine Kinase 10/20/20 10/20/20 10/20/20 11:22 16:02 21:56 WBC MCHC Lymph % (Auto) Lymph # (Auto) Seg Neutrophils % Seg Neutrophils # Carbon Dioxide BUN Creatinine Glucose POC Glucose 177 H 107 H 116 H Calcium Total Creatine Kinase 10/21/20 10/21/20 10/21/20 07:12 11:20 16:09 WBC MCHC Lymph % (Auto) Lymph # (Auto) Seg Neutrophils % Seg Neutrophils # Carbon Dioxide BUN Creatinine Glucose POC Glucose 125 H 119 H 146 H Calcium Total Creatine Kinase 10/21/20 10/22/20 21:40 07:12 WBC MCHC Lymph % (Auto) Lymph # (Auto) Seg Neutrophils % Seg Neutrophils # Carbon Dioxide BUN Creatinine Glucose POC Glucose 143 H 111 H Calcium Total Creatine Kinase Allied health notes reviewed: nursing
[2020-10-22] MEDS: methylPREDNISolone Sod Succinate 40 MG/1 ML INJ IV SCH ×2 (08:40→10:00)
[2020-10-22] MEDS: VALSARTAN 160MG TAB PO SCH ×2 (08:40→10:00)
[2020-10-22] MEDS: DOCUSATE SODIUM 100 MG CAP PO SCH ×4 (08:41→23:16)
[2020-10-22] MEDS: FAMOTIDINE 20 MG TAB PO SCH ×2 (08:42→10:00)
[2020-10-22] MEDS: amLODIPine 10 MG TAB PO SCH ×2 (08:42→10:00)
--- NOTE | 2020-10-22 13:52 | Progress Note ---
Assessment and Plan 75 yo male with HTN admitted with severe cervical stenosis and cord compression 2/2 C3 lytic lesion with dorsal epidural space mass, metastatic disease, lung mass, metabolic acidosis Past Medical History: hypertension Past Surgical History: No surgical history Social history: , lives with family. denies: smoking, alcohol abuse (he drinks 1-2 beers daily), prescription drug abuse Home meds: mobic, tizandine, desyrel, amlodipine, losartan, rosuvastatin Assessment and plan: --Severe cervical stenosis and cord compression 2/2 C3 lytic lesion with dorsal epidural space mass status post C-spine surgery and tumor biopsy. -Neurosurgery consulted, s/p C-collar per neurosurgery -10/12: CT C-spine shows lytic lesion involving C3 vertebral body, posterior elements and 3 cm right middle lung zone lung mass concerning for primary lung cancer -10/15: s/p C1-5 fusion, C3 laminectomy for removal of dorsal epidural tumor (dorsal soft tissue mass sent to pathology for permanent specimen) - prn Dilaudid and oxycodone, steroid taper -Aspiration/fall/seizure precautions --History of alcohol abuse, continue CIWA protocol --h/o HTN, CAD -resume home amlodipine, losartan -As needed hydralazine -Blood pressure monitor per protocol -uses home Aspirin and statin -- R lung mass, suspicious for adenocarcinoma -10/12 CT chest shows large mass within the right upper lung -Based on surgical path results, patient appears to have 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 -- Adenocarcinoma with lung primary. -Surgical path demonstrates adenocarcinoma with suspected lung primary. -Patient is on Decadron -Transfuse for hemoglobin less than 7 -Trend CBC -Oncology recommends CT-guided lung tumor biopsy for molecular marker analysis when feasible for patient. Patient will need palliative chemotherapy and upper spine radiation. Can follow-up with oncology outpatient --Leukocytosis, likely due to steroid Dispo: C-collar and drain discontinued by neurosurgery. Oncology recommendations as above. cont steroid taper. Consulted case management for discharge planning/rehab placement. Full code -PPI: Pepcid -Diet: Cardiac diet -SSI, Accu-Cheks AC at bedtime -Bowel regimen: Colace -SCDs to BLE while in bed -Chemical prophylaxis per nsgy Daily clinical course: 10/22/20: Continue PT OT as tolerated, pending acute rehab placement. Discussed with case management and RN at the bedside. Continue supportive care, taper steroid. 10/21/2020: Acute inpatient rehab arrangements being made. Patient will have d/c order with rx for amlodipine, valsartan, prednisone taper, and percocet. 10/20/2020: No acute overnight events. Patient today complaining of pain. Will adjust pain medication. Heme-onc evaluated patient. Recommended that patient get CT guided biopsy of lung mass, when this is feasible for patient. Patient will then need to undergo palliative chemotherapy and upper spine radiation as he heals from surgery. Recommends tapering of steroid dose. Consult placed to case management for acute rehab for patient. 10/19/2020: No acute overnight events. Per direction of neurosurgeon, drain is now discontinued and patient is out of c-collar. He is still experiencing some pain however states that pain control is adequate on my encounter. Awaiting oncology evaluation. 10/18/2020: No acute overnight events. Awaiting oncology to evaluate patient. 10/17/2020: No acute overnight events. Patient was working with physical therapy this morning. GISSEL drains noted to have some mild drainage about 1/4 full. No acute complaints otherwise other than pain which he is getting scheduled as needed pain medication for. 10/16: PEr nsgy ok to transfer to floor. No acute events overnight 10/15: Received 2 units plts preop, s/p C1-5 fusion, C3 laminectomy for removal of dorsal epidural tumor with nsgy, c-collar in place. CIWA protocol initiated overnight for agitation. 10/14: No acute events reported overnight, patient continues to refuse c-collar, scheduled for [facility] neurosurgery, 2 units plts preop. Subjective Date of service: 10/22/20 Principal diagnosis: Cord compression syn / Unstable C-spine; R. Lung Mass; HTN; Met. Acidosis Interval history: Patient seen and examined. Medical records and medication list reviewed. No acute event overnight noted by the RN. Patient denies any chest pain or difficulty breathing. Patient is tolerating diet. Complains of neck pain Discussed plan of care at bedside with patient. Objective - Exam Narrative Exam: General appearance: Present: no acute distress, well-nourished, obese - EENT Eyes: Present: PERRL ENT: poor dentition - Neck Neck: No gross deformities noted. Patient has incision scar on posterior aspect of neck with overlying dressing. - Respiratory Respiratory effort: normal Respiratory: bilateral: diminished - Cardiovascular Rhythm: regular Heart Sounds: Present: S1 & S2. Absent: systolic murmur, diastolic murmur - Extremities Extremities: no ischemia, pulses intact, pulses symmetrical Peripheral Pulses: within normal limits - Abdominal General gastrointestinal: soft, non-tender, non-distended, normal bowel sounds - Integumentary Integumentary: Present: warm, dry - Psychiatric Psychiatric: cooperative - Neurologic Neurologic: moves all extremities - Constitutional Vitals: Vital Signs - 12hr 10/22/20 10/22/20 10/22/20 05:49 07:13 08:40 Temperature 98.6 F 98.5 F Pulse Rate 74 78 78 Respiratory 20 16 Rate Blood Pressure 142/67 138/69 138/69 O2 Sat by Pulse 100 97 Oximetry 10/22/20 10/22/20 10/22/20 08:42 08:55 11:10 Temperature 98.8 F Pulse Rate 78 84 Respiratory 16 Rate Blood Pressure 138/69 139/63 O2 Sat by Pulse 95 95 Oximetry - Labs CBC & Chem 7: 10/17/20 05:13 10/16/20 05:30 Labs: Abnormal lab results 10/21/20 10/21/20 10/22/20 Range/Units 16:09 21:40 07:12 POC Glucose 146 H 143 H 111 H (70-105) mg/dL 10/22/20 Range/Units 11:08 POC Glucose 112 H (70-105) mg/dL
[2020-10-23] MEDS: HYDROmorphone 1 MG/1 ML INJ IV PRN ×3 (03:26→19:25)
[2020-10-23] MEDS: INSULIN LISPRO 100 UNIT/ML SUB-Q SCH ×4 (07:39→22:38)
[2020-10-23] MEDS: DOCUSATE SODIUM 100 MG CAP PO SCH ×2 (10:25→22:34)
[2020-10-23] MEDS: VALSARTAN 160MG TAB PO SCH (10:45)
[2020-10-23] MEDS: FAMOTIDINE 20 MG TAB PO SCH (10:47)
[2020-10-23] MEDS: amLODIPine 10 MG TAB PO SCH (11:43)
[2020-10-23] MEDS: methylPREDNISolone Sod Succinate 40 MG/1 ML INJ IV SCH (11:46)
[2020-10-23] MEDS: oxyCODONE /ACETAMINOPHEN 5-325MG TAB PO PRN ×2 (13:43→22:35)
--- NOTE | 2020-10-23 14:15 | Progress Note ---
Assessment and Plan 75 YO Male with HTN presents to ED for evaluation. Pt reports " I am hurting and I cannot walk". Patient states that he has experienced generalized weakness over the past 2 weeks with acutely worsening symptoms over the past 3 days. Patient reports he has experienced bilateral upper extremity muscle spasms, neck pain. Patient states that he is unable to hold objects in either hand and is unable to care for himself. Patient is currently bedbound, nonambulatory. Patient requires 6/6 assistance with activities of daily living and has a palliative performance score 30%. Patient underwent CT scan of the chest and was found to have a right lung lesion suspected to be a right lung malignancy With suspected metastatic disease to the spine complicated by cord compression syndrome. Total neurology team consulted, neurosurgery consulted, critical care team consulted in the emergency department. Patient admitted to ICU due to in creased risk of worsening symptoms. Patient treated with IV steroid therapy, supportive care. Patient denies fever, chills, chest pain, palpitation, productive cough, skin rash, recent ill contacts, known exposure to COVID-19. Patient [address] CT of chest 10/12/20 reported Large mass in the right upper lung with associated right hilar and paratracheal adenopathy. Findings concerning for malignancy/adenocarcinoma with metastatic farrah spread. Biopsy and follow-up recommended. CT of neck 10/12/20 reported Lesion involving the C3 vertebrae with cortical breakthrough and epidural extension resulting in moderate to severe spinal canal stenosis. The mass abuts the bilateral vertebral arteries in the transverse foramen at the C3 resulting in moderate stenosis of the left vertebral artery. The right vertebral artery is diminutive but there is no occlusion or significant stenosis. Soft tissue and bone, C3 epidural tumor, biopsy: on 10/15/20 reported Metastatic adenocarcinoma consistent with lung primary. Oncology consulted. Patient alert, awake.Patient Resting on 2 litres o2. O2 saturation 96%. Denies chest oain, shortness of breath or cough at this time. Patient afebrile. Has l eukocytosis. Oncology on consult. Further management of metastatic CA based oncology recommendations. - Patient Problems (1) Mass of right lung Current Visit: Yes Status: Acute Plan to address problem: Lkely adnocarcinoma of lung. Oncology consulted. (2) Lung cancer metastatic to bone Current Visit: Yes Status: Acute Plan to address problem: Biopsy of cervical mass and bone biopsy reported adenocarcinoma likly primary is lung. Oncology consulted. (3) Cord compression syndrome Current Visit: Yes Status: Acute Plan to address problem: From metastatic adenocarcinome. Oncology consulted. (4) Upper extremity weakness Current Visit: Yes Status: Acute Plan to address problem: Lkely from cord compression from adenocarcinoma. Oncology consulted. Subjective Date of service: 10/23/20 Principal diagnosis: Cord compression syn / Unstable C-spine; R. Lung Mass; HTN; Met. Acidosis Interval history: 75 YO Male with HTN presents to ED for evaluation. Pt reports " I am hurting and I cannot walk". Patient states that he has experienced generalized weakness over the past 2 weeks with acutely worsening symptoms over the past 3 days. Patient reports he has experienced bilateral upper extremity muscle spasms, neck pain. Patient states that he is unable to hold objects in either hand and is unable to care for himself. Patient is currently bedbound, nonambulatory. Patient requires 6/6 assistance with activities of daily living and has a palliative performance score 30%. Patient underwent CT scan of the chest and was found to have a right lung lesion suspected to be a right lung malignancy With suspected metastatic disease to the spine complicated by cord compression syndrome. Total neurology team consulted, neurosurgery consulted, critical care team consulted in the emergency department. Patient admitted to ICU due to increased risk of worsening symptoms. Patient treated with IV steroid therapy, supportive care. Patient denies fever, chills, chest pain, palpitation, productive cough, skin rash, recent ill contacts, known exposure to COVID-19. Patient [address] CT of chest 10/12/20 reported Large mass in the right upper lung with associated right hilar and paratracheal adenopathy. Findings concerning for malignancy/adenocarcinoma with metastatic farrah spread. Biopsy and follow-up recommended. CT of neck 10/12/20 reported Lesion involving the C3 vertebrae with cortical breakthrough and epidural extension resulting in moderate to severe spinal canal stenosis. The mass abuts the bilateral vertebral arteries in the transverse foramen at the C3 resulting in moderate stenosis of the left vertebral artery. The right vertebral artery is diminutive but there is no occlusion or significant stenosis. Soft tissue and bone, C3 epidural tumor, biopsy: on 10/15/20 reported Metastatic adenocarcinoma consistent with lung primary. Oncology consulted. Patient alert, awake.Patient Resting on 2 litres o2. O2 saturation 96%. Denies chest oain, shortness of breath or cough at this time. Patient afebrile. Has leukocytosis. Oncology on consult. Further management of metastatic CA based oncology recommendations. Objective Vital Signs - 12hr 10/23/20 10/23/20 10/23/20 04:55 07:50 09:57 Temperature 98.6 F 98.4 F Pulse Rate 73 Respiratory 18 18 Rate Blood Pressure 130/71 143/76 O2 Sat by Pulse 100 97 Oximetry 10/23/20 11:42 Temperature 98.3 F Pulse Rate 79 Respiratory 18 Rate Blood Pressure 147/62 O2 Sat by Pulse 100 Oximetry Constitutional: no acute distress, alert, other (Weak. Resting in bed.) Eyes: non-icteric ENT: oropharynx moist Neck: supple, no lymphadenopathy, no JVD Effort: normal Ascultation: Bilateral: diminished breath sounds Percussion: Bilateral: not dull Cardiovascular: regular rate and rhythm, other (S1,S2) Gastrointestinal: normoactive bowel sounds, soft, non-tender, non-distended Integumentary: normal Extremities: no cyanosis, no edema, pulses normal, no ischemia or petechiae Neurologic: normal mental status, pupils equal and round, CN II-XII normal, motor strength normal and, other Psychiatric: mood appropriate, affect normal CBC and BMP: 10/23/20 15:44 10/23/20 15:44 ABG, PT/INR, D-dimer: ABG ABG pH 7.472 (7.320-7.450) H 10/23/20 10:00 POC ABG pCO2 37.9 mmHg (32.0-48.0) 10/23/20 10:00 POC ABG pO2 70.2 mmHg (83-108) L 10/23/20 10:00 POC ABG HCO3 27.1 10/23/20 10:00 ABG O2 Saturation Not Reportable 10/23/20 10:00 PT/INR, D-dimer PT 13.9 Sec. (12.2-14.9) 10/14/20 16:28 INR 1.01 (0.87-1.13) 10/14/20 16:28 Abnormal lab findings: Abnormal Labs 10/12/20 10/12/20 10/13/20 08:37 08:37 03:54 WBC 11.7 H MCHC 35 H Lymph % (Auto) 13.0 L 8.8 L Lymph # (Auto) 1.0 L Seg Neutrophils % 79.1 H 87.0 H Seg Neutrophils # 10.2 H ABG pH POC ABG pO2 ABG Sodium ABG Glucose Carbon Dioxide 21 L BUN Creatinine 0.6 L Glucose 105 H POC Glucose Calcium Total Creatine Kinase 192 H Arterial Blood Glucose 10/13/20 10/13/20 10/15/20 03:54 11:40 07:03 WBC 14.7 H MCHC Lymph % (Auto) Lymph # (Auto) Seg Neutrophils % Seg Neutrophils # ABG pH POC ABG pO2 ABG Sodium ABG Glucose Carbon Dioxide 18 L BUN 23 H Creatinine Glucose 118 H POC Glucose 153 H Calcium Total Creatine Kinase Arterial Blood Glucose 10/15/20 10/15/20 10/15/20 07:03 16:34 22:26 WBC MCHC Lymph % (Auto) Lymph # (Auto) Seg Neutrophils % Seg Neutrophils # ABG pH POC ABG pO2 ABG Sodium ABG Glucose Carbon Dioxide BUN 29 H Creatinine 0.7 L Glucose 115 H POC Glucose 107 H 106 H Calcium Total Creatine Kinase Arterial Blood Glucose 10/16/20 10/16/20 10/16/20 05:30 05:30 07:44 WBC 17.6 H MCHC Lymph % (Auto) Lymph # (Auto) Seg Neutrophils % Seg Neutrophils # ABG pH POC ABG pO2 ABG Sodium ABG Glucose Carbon Dioxide BUN 22 H Creatinine 0.7 L Glucose 115 H POC Glucose 123 H Calcium 8.3 L Total Creatine Kinase Arterial Blood Glucose 10/16/20 10/17/20 10/17/20 11:43 05:13 07:13 WBC 16.2 H MCHC Lymph % (Auto) Lymph # (Auto) Seg Neutrophils % Seg Neutrophils # ABG pH POC ABG pO2 ABG Sodium ABG Glucose Carbon Dioxide BUN Creatinine Glucose POC Glucose 118 H 118 H Calcium Total Creatine Kinase Arterial Blood Glucose 10/17/20 10/17/20 10/17/20 11:53 16:18 21:10 WBC MCHC Lymph % (Auto) Lymph # (Auto) Seg Neutrophils % Seg Neutrophils # ABG pH POC ABG pO2 ABG Sodium ABG Glucose Carbon Dioxide BUN Creatinine Glucose POC Glucose 116 H 137 H 115 H Calcium Total Creatine Kinase Arterial Blood Glucose 10/18/20 10/18/20 10/18/20 07:43 11:14 16:42 WBC MCHC Lymph % (Auto) Lymph # (Auto) Seg Neutrophils % Seg Neutrophils # ABG pH POC ABG pO2 ABG Sodium ABG Glucose Carbon Dioxide BUN Creatinine Glucose POC Glucose 130 H 150 H 165 H Calcium Total Creatine Kinase Arterial Blood Glucose 10/18/20 10/19/20 10/19/20 21:26 08:03 11:15 WBC MCHC Lymph % (Auto) Lymph # (Auto) Seg Neutrophils % Seg Neutrophils # ABG pH POC ABG pO2 ABG Sodium ABG Glucose Carbon Dioxide BUN Creatinine Glucose POC Glucose 181 H 142 H 130 H Calcium Total Creatine Kinase Arterial Blood Glucose 10/19/20 10/19/20 10/20/20 15:53 21:43 07:46 WBC MCHC Lymph % (Auto) Lymph # (Auto) Seg Neutrophils % Seg Neutrophils # ABG pH POC ABG pO2 ABG Sodium ABG Glucose Carbon Dioxide BUN Creatinine Glucose POC Glucose 134 H 144 H 125 H Calcium Total Creatine Kinase Arterial Blood Glucose 10/20/20 10/20/20 10/20/20 11:22 16:02 21:56 WBC MCHC Lymph % (Auto) Lymph # (Auto) Seg Neutrophils % Seg Neutrophils # ABG pH POC ABG pO2 ABG Sodium ABG Glucose Carbon Dioxide BUN Creatinine Glucose POC Glucose 177 H 107 H 116 H Calcium Total Creatine Kinase Arterial Blood Glucose 10/21/20 10/21/20 10/21/20 07:12 11:20 16:09 WBC MCHC Lymph % (Auto) Lymph # (Auto) Seg Neutrophils % Seg Neutrophils # ABG pH POC ABG pO2 ABG Sodium ABG Glucose Carbon Dioxide BUN Creatinine Glucose POC Glucose 125 H 119 H 146 H Calcium Total Creatine Kinase Arterial Blood Glucose 10/21/20 10/22/20 10/22/20 21:40 07:12 11:08 WBC MCHC Lymph % (Auto) Lymph # (Auto) Seg Neutrophils % Seg Neutrophils # ABG pH POC ABG pO2 ABG Sodium ABG Glucose Carbon Dioxide BUN Creatinine Glucose POC Glucose 143 H 111 H 112 H Calcium Total Creatine Kinase Arterial Blood Glucose 10/23/20 10/23/20 10:00 11:42 WBC MCHC Lymph % (Auto) Lymph # (Auto) Seg Neutrophils % Seg Neutrophils # ABG pH 7.472 H POC ABG pO2 70.2 L ABG Sodium 134.9 L ABG Glucose 104 H Carbon Dioxide BUN Creatinine Glucose POC Glucose 122 H Calcium Total Creatine Kinase Arterial Blood Glucose 104 H Allied health notes reviewed: nursing
--- NOTE | 2020-10-23 14:29 | Progress Note ---
Assessment and Plan 75 yo male with HTN admitted with severe cervical stenosis and cord compression 2/2 C3 lytic lesion with dorsal epidural space mass, metastatic disease, lung mass, metabolic acidosis Past Medical History: hypertension Past Surgical History: No surgical history Social history: , lives with family. denies: smoking, alcohol abuse (he drinks 1-2 beers daily), prescription drug abuse Home meds: mobic, tizandine, desyrel, amlodipine, losartan, rosuvastatin Assessment and plan: --Severe cervical stenosis and cord compression 2/2 C3 lytic lesion with dorsal epidural space mass status post C-spine surgery and tumor biopsy. -Neurosurgery consulted, s/p C-collar per neurosurgery -10/12: CT C-spine shows lytic lesion involving C3 vertebral body, posterior elements and 3 cm right middle lung zone lung mass concerning for primary lung cancer -10/15: s/p C1-5 fusion, C3 laminectomy for removal of dorsal epidural tumor (dorsal soft tissue mass sent to pathology for permanent specimen) - prn Dilaudid and oxycodone, steroid taper -Aspiration/fall/seizure precautions --History of alcohol abuse, continue CIWA protocol --h/o HTN, CAD -resume home amlodipine, losartan -As needed hydralazine -Blood pressure monitor per protocol -uses home Aspirin and statin -- R lung mass, suspicious for adenocarcinoma -10/12 CT chest shows large mass within the right upper lung -Based on surgical path results, patient appears to have 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 -- Adenocarcinoma with lung primary. -Surgical path demonstrates adenocarcinoma with suspected lung primary. -Patient is on Decadron -Transfuse for hemoglobin less than 7 -Trend CBC -Oncology recommends CT-guided lung tumor biopsy for molecular marker analysis when feasible for patient. Patient will need palliative chemotherapy and upper spine radiation. Can follow-up with oncology outpatient --Leukocytosis, likely due to steroid Dispo: C-collar and drain discontinued by neurosurgery. Oncology recommendations as above. cont steroid taper. Consulted case management for discharge planning/rehab placement. Full code -PPI: Pepcid -Diet: Cardiac diet -SSI, Accu-Cheks AC at bedtime -Bowel regimen: Colace -SCDs to BLE while in bed -Chemical prophylaxis per nsgy Daily clinical course: 10/23/20: [employer] and denied for acute rehab. PT recommended for home health. Continue supportive care, patient updated about disposition plan. Patient's son unable to accept patient at home as he has a full-time job and unable to take care of the patient. Discharge pending on placement issue, complex case manager following. Continue supportive care. 10/22/20: Continue PT OT as tolerated, pending acute rehab placement. Discussed with case management and RN at the bedside. Continue supportive care, taper steroid. 10/21/2020: Acute inpatient rehab arrangements being made. Patient will have d/c order with rx for amlodipine, valsartan, prednisone taper, and percocet. 10/20/2020: No acute overnight events. Patient today complaining of pain. Will adjust pain medication. Heme-onc evaluated patient. Recommended that patient get CT guided biopsy of lung mass, when this is feasible for patient. Patient will then need to undergo palliative chemotherapy and upper spine radiation as he heals from surgery. Recommends tapering of steroid dose. Consult placed to case management for acute rehab for patient. 10/19/2020: No acute overnight events. Per direction of neurosurgeon, drain is n ow discontinued and patient is out of c-collar. He is still experiencing some pain however states that pain control is adequate on my encounter. Awaiting oncology evaluation. 10/18/2020: No acute overnight events. Awaiting oncology to evaluate patient. 10/17/2020: No acute overnight events. Patient was working with physical therapy this morning. GISSEL drains noted to have some mild drainage about 1/4 full. No acute complaints otherwise other than pain which he is getting scheduled as needed pain medication for. 10/16: PEr nsgy ok to transfer to floor. No acute events overnight 10/15: Received 2 units plts preop, s/p C1-5 fusion, C3 laminectomy for removal of dorsal epidural tumor with nsgy, c-collar in place. CIWA protocol initiated overnight for agitation. 10/14: No acute events reported overnight, patient continues to refuse c-collar, scheduled for [facility] neurosurgery, 2 units plts preop. Subjective Date of service: 10/23/20 Principal diagnosis: Cord compression syn / Unstable C-spine; R. Lung Mass; HTN; Met. Acidosis Interval history: Patient seen and examined. Medical records and medication list reviewed. No acute event overnight noted by the RN. Patient denies any chest pain or difficulty breathing. Patient is tolerating diet. No acute issue overnight PT recommended home health Discussed plan of care at bedside with patient. Objective - Exam Narrative Exam: General appearance: Present: no acute distress, well-nourished, obese - EENT Eyes: Present: PERRL ENT: poor dentition - Neck Neck: No gross deformities noted. Patient has incision scar on posterior aspect of neck with overlying dressing. - Respiratory Respiratory effort: normal Respiratory: bilateral: diminished - Cardiovascular Rhythm: regular Heart Sounds: Present: S1 & S2. Absent: systolic murmur, diastolic murmur - Extremities Extremities: no ischemia, pulses intact, pulses symmetrical Peripheral Pulses: within normal limits - Abdominal General gastrointestinal: soft, non-tender, non-distended, normal bowel sounds - Integumentary Integumentary: Present: warm, dry - Psychiatric Psychiatric: cooperative - Neurologic Neurologic: moves all extremities - Constitutional Vitals: Vital Signs - 12hr 10/23/20 10/23/20 10/23/20 04:55 07:50 09:57 Temperature 98.6 F 98.4 F Pulse Rate 73 Respiratory 18 18 Rate Blood Pressure 130/71 143/76 O2 Sat by Pulse 100 97 Oximetry 10/23/20 11:42 Temperature 98.3 F Pulse Rate 79 Respiratory 18 Rate Blood Pressure 147/62 O2 Sat by Pulse 100 Oximetry - Labs CBC & Chem 7: 10/23/20 15:44 10/23/20 15:44 Labs: Abnormal lab results 10/23/20 10/23/20 Range/Units 10:00 11:42 ABG pH 7.472 H (7.320-7.450) POC ABG pO2 70.2 L (83-108) mmHg ABG Sodium 134.9 L (136.0-145.0) mmol/L ABG Glucose 104 H (65-95) mg/dL POC Glucose 122 H (70-105) mg/dL Arterial Blood Glucose 104 H (65-95) mg/dL
--- NOTE | 2020-10-23 14:37 | Discharge Summary ---
Providers - Providers Date of Admission: 10/12/20 13:18 Date of discharge: 10/25/20 Attending physician: ALEX JANG 10/12/20 10:49 Consult to Physician [CONS] Stat Comment: Consulting Provider: GEORGE LYNN II Physician Instructions: Reason For Exam: spine lesion 10/12/20 10:50 Consult to Physician [CONS] Urgent Comment: Consulting Provider: YVETTE ANTHONY Physician Instructions: Reason For Exam: cervical cord lesion 10/17/20 07:33 Occupational Therapy Evaluate and Treat [CONS] Routine Comment: Reason For Exam: s/p NSG c-spine Physical Therapy Evaluation and Treat [CONS] Routine Comment: Reason For Exam: s/p NSG c-spine 10/17/20 07:34 Consult to Case Management [CONS] Routine Services Needed at Discharge: Other Notified:: cm notified Comment:: d/c planning, placement, will likely need rehab 10/17/20 15:43 Consult to Physician [CONS] Routine Comment: Consulting Provider: BLANCA SWEENEY Physician Instructions: Reason For Exam: Metastatic AdenoCA of Lung Origin 10/20/20 08:19 Consult to Case Management [CONS] Routine Services Needed at Discharge: Physical Therapy Notified:: cm notified Comment:: acute rehab placement Hospitalization Condition: Critical Hospital course: 75 yo male with HTN admitted with severe cervical stenosis and cord compression 2/2 C3 lytic lesion with dorsal epidural space mass, metastatic disease, lung mass, metabolic acidosis Past Medical History: hypertension Past Surgical History: No surgical history Social history: , lives with family. denies: smoking, alcohol abuse (he drinks 1-2 beers daily), prescription drug abuse Home meds: mobic, tizandine, desyrel, amlodipine, losartan, rosuvastatin Daily clinical course: 10/25/20: Patient clinically stable. Patient son will be here to take patient home with home health. discharge plan and management was thoroughly discussed with the patient and he verbalized understanding. Patient was recommended to follow-up with oncologist as outpatient to initiate his cancer treatment as soon as possible. Patient would need outpatient follow-up with oncologist to resume definitive treatment for his metastatic lung adenocarcinoma. 10/24/20: CM maintaining discussion with patient's son for discharge planning. Family requested hospital bed which patient is not qualified for. PT r ecommended home health, plan to discharge home with home health. Pending discharge home on family availability to take patient home. 10/23/20: [employer] Medicare and denied for acute rehab. PT recommended for home health. Continue supportive care, patient updated about disposition plan. Patient's son unable to accept patient at home as he has a full-time job and unable to take care of the patient. Discharge pending on placement issue, home health care case manager following. Continue supportive care. 10/22/20: Continue PT OT as tolerated, pending acute rehab placement. Discussed with case management and RN at the bedside. Continue supportive care, taper steroid. 10/21/2020: Acute inpatient rehab arrangements being made. Patient will have d/c order with rx for amlodipine, valsartan, prednisone taper, and percocet. 10/20/2020: No acute overnight events. Patient today complaining of pain. Will adjust pain medication. Heme-onc evaluated patient. Recommended that patient get CT guided biopsy of lung mass, when this is feasible for patient. Patient will then need to undergo palliative chemotherapy and upper spine radiation as he heals from surgery. Recommends tapering of steroid dose. Consult placed to case management for acute rehab for patient. 10/19/2020: No acute overnight events. Per direction of neurosurgeon, drain is now discontinued and patient is out of c-collar. He is still experiencing some pain however states that pain control is adequate on my encounter. Awaiting oncology evaluation. 10/18/2020: No acute overnight events. Awaiting oncology to evaluate patient. 10/17/2020: No acute overnight events. Patient was working with physical therapy this morning. GISSEL drains noted to have some mild drainage about 1/4 full. No acute complaints otherwise other than pain which he is getting scheduled as needed pain medication for. 10/16: PEr nsgy ok to transfer to floor. No acute events overnight 10/15: Received 2 units plts preop, s/p C1-5 fusion, C3 laminectomy for removal of dorsal epidural tumor with nsgy, c-collar in place. CIWA protocol initiated overnight for agitation. 10/14: No acute events reported overnight, patient continues to refuse c-collar, scheduled for [facility] neurosurgery, 2 units plts preop. Assessment and plan: --Severe cervical stenosis and cord compression 2/2 C3 lytic lesion with dorsal epidural space mass status post C-spine surgery and tumor biopsy. -Neurosurgery consulted, s/p C-collar per neurosurgery -10/12: CT C-spine shows lytic lesion involving C3 vertebral body, posterior elements and 3 cm right middle lung zone lung mass concerning for primary lung cancer -10/15: s/p C1-5 fusion, C3 laminectomy for removal of dorsal epidural tumor (dorsal soft tissue mass sent to pathology for permanent specimen) - prn Dilaudid and oxycodone, steroid taper -Aspiration/fall/seizure precautions --History of alcohol abuse, continue CIWA protocol --h/o HTN, CAD -resume home amlodipine, losartan -As needed hydralazine -Blood pressure monitor per protocol -uses home Aspirin and statin -- R lung mass, suspicious for adenocarcinoma -10/12 CT chest shows large mass within the right upper lung -Based on surgical path results, patient appears to have 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 -- Adenocarcinoma with lung primary. -Surgical path demonstrates adenocarcinoma with suspected lung primary. -Patient is on Decadron -Transfuse for hemoglobin less than 7 -Trend CBC -Oncology recommends CT-guided lung tumor biopsy for molecular marker analysis when feasible for patient. Patient will need palliative chemotherapy and upper spine radiation. Can follow-up with oncology outpatient --Leukocytosis, likely due to steroid Dispo: C-collar and drain discontinued by neurosurgery. Oncology recomm endations as above. cont steroid taper. Consulted case management for discharge planning/rehab placement. Full code -PPI: Pepcid -Diet: Cardiac diet -SSI, Accu-Cheks AC at bedtime -Bowel regimen: Colace -SCDs to BLE while in bed -Chemical prophylaxis per nsgy Disposition: DC-30 STILL A PATIENT Final Discharge Diagnosis (Prints w/discharge instructions): --Severe cervical stenosis and cord compression 2/2 C3 lytic lesion with dorsal epidural space mass status post C-spine surgery and tumor biopsy. --History of alcohol abuse. --h/o HTN, CAD. -- R lung mass, Adenocarcinoma with lung primary. --Leukocytosis, likely due to steroid Time spent for discharge: 34 minutes Core Measure Documentation - Palliative Care Palliative Care/ Comfort Measures: Not Applicable - Core Measures Any of the following diagnoses?: none Exam - Physical Exam Narrative exam: General appearance: Present: no acute distress, well-nourished, obese - EENT Eyes: Present: PERRL ENT: poor dentition - Neck Neck: No gross deformities noted. Patient has incision scar on posterior aspect of neck with overlying dressing. - Respiratory Respiratory effort: normal Respiratory: bilateral: diminished - Cardiovascular Rhythm: regular Heart Sounds: Present: S1 & S2. Absent: systolic murmur, diastolic murmur - Extremities Extremities: no ischemia, pulses intact, pulses symmetrical Peripheral Pulses: within normal limits - Abdominal General gastrointestinal: soft, non-tender, non-distended, normal bowel sounds - Integumentary Integumentary: Present: warm, dry - Psychiatric Psychiatric: cooperative - Neurologic Neurologic: moves all extremities - Constitutional Vitals: Temp Pulse Resp BP Pulse Ox 98.3 F 79 18 147/62 100 10/23/20 11:42 10/23/20 11:42 10/23/20 11:42 10/23/20 11:42 10/23/20 11:42 Plan Activity: fall precautions Weight Bearing Status: Non-Weight Bearing Diet: low fat Wound: per your surgeon's advice Additional Instructions: Follow-up with oncologist in 1 week. Follow-up with neurosurgeon in 1 week Follow up with: [facility] [Other] - 3-5 Days GEORGE LYNN II, MD [Staff Physician] - 7 Days RYLEY MATHUR MD [Staff Physician] - 7 Days Prescriptions: AtorvaSTATin [Lipitor] 40 mg PO QHS 30 Days #30 tablet predniSONE [Deltasone] 5 mg PO .TAPER #48 tab Valsartan [Diovan] 160 mg PO DAILY 30 Days #30 tablet oxyCODONE /ACETAMINOPHEN [Percocet 5/325 mg] 2 tab PO Q4H PRN 3 Days #36 tablet PRN Reason: Pain, Moderate (4-6)
[2020-10-23 16:05] LABS: Hematocrit 38.9 % (35.5-45.6); Hemoglobin 12.8 gm/dl (11.8-15.2); Mean Corpuscular HGB Conc 33 % (32-34); Mean Corpuscular Volume 89 fl (84-94); Platelet Count 288 K/mm3 (140-440); Red Blood Count 4.36 M/mm3 (3.65-5.03); Red Cell Distribution Width 14.6 % (13.2-15.2)
[2020-10-23 16:23] LABS: Blood Urea Nitrogen 25 mg/dL (9-20); Calcium 8.9 mg/dL (8.4-10.2); Hemolysis Index 17
[2020-10-23 16:26] LABS: BUN/Creatinine Ratio 36
[2020-10-23] MEDS: ENOXAPARIN 40 MG/0.4 ML INJ SUB-Q SCH (22:34)
[2020-10-24] MEDS: HYDROmorphone 1 MG/1 ML INJ IV PRN ×4 (00:55→22:03)
[2020-10-24] MEDS: oxyCODONE /ACETAMINOPHEN 5-325MG TAB PO PRN ×3 (05:21→19:35)
[2020-10-24] MEDS: INSULIN LISPRO 100 UNIT/ML SUB-Q SCH ×4 (08:52→22:02)
[2020-10-24] MEDS: methylPREDNISolone Sod Succinate 40 MG/1 ML INJ IV SCH (09:06)
[2020-10-24] MEDS: VALSARTAN 160MG TAB PO SCH (09:06)
[2020-10-24] MEDS: amLODIPine 10 MG TAB PO SCH (09:06)
[2020-10-24] MEDS: FAMOTIDINE 20 MG TAB PO SCH (09:06)
[2020-10-24] MEDS: DOCUSATE SODIUM 100 MG CAP PO SCH ×2 (11:03→22:02)
--- NOTE | 2020-10-24 15:40 | Progress Note ---
Assessment and Plan 75 yo male with HTN admitted with severe cervical stenosis and cord compression 2/2 C3 lytic lesion with dorsal epidural space mass, metastatic disease, lung mass, metabolic acidosis Past Medical History: hypertension Past Surgical History: No surgical history Social history: , lives with family. denies: smoking, alcohol abuse (he drinks 1-2 beers daily), prescription drug abuse Home meds: mobic, tizandine, desyrel, amlodipine, losartan, rosuvastatin Assessment and plan: --Severe cervical stenosis and cord compression 2/2 C3 lytic lesion with dorsal epidural space mass status post C-spine surgery and tumor biopsy. -Neurosurgery consulted, s/p C-collar per neurosurgery -10/12: CT C-spine shows lytic lesion involving C3 vertebral body, posterior elements and 3 cm right middle lung zone lung mass concerning for primary lung cancer -10/15: s/p C1-5 fusion, C3 laminectomy for removal of dorsal epidural tumor (dorsal soft tissue mass sent to pathology for permanent specimen) - prn Dilaudid and oxycodone, steroid taper -Aspiration/fall/seizure precautions --History of alcohol abuse, continue CIWA protocol --h/o HTN, CAD -resume home amlodipine, losartan -As needed hydralazine -Blood pressure monitor per protocol -uses home Aspirin and statin -- R lung mass, suspicious for adenocarcinoma -10/12 CT chest shows large mass within the right upper lung -Based on surgical path results, patient appears to have 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 -- Adenocarcinoma with lung primary. -Surgical path demonstrates adenocarcinoma with suspected lung primary. -Patient is on Decadron -Transfuse for hemoglobin less than 7 -Trend CBC -Oncology recommends CT-guided lung tumor biopsy for molecular marker analysis when feasible for patient. Patient will need palliative chemotherapy and upper spine radiation. Can follow-up with oncology outpatient --Leukocytosis, likely due to steroid Dispo: C-collar and drain discontinued by neurosurgery. Oncology recommendations as above. cont steroid taper. Consulted case management for discharge planning/rehab placement. Full code -PPI: Pepcid -Diet: Cardiac diet -SSI, Accu-Cheks AC at bedtime -Bowel regimen: Colace -SCDs to BLE while in bed -Chemical prophylaxis per nsgy Daily clinical course: 10/24/20: CM maintaining discussion with patient's son for discharge planning. Family requested hospital bed which patient is not qualified for. PT recommended home health, plan to discharge home with home health. Pending d ischarge home on family availability to take patient home. 10/23/20: [employer] Medicare and denied for acute rehab. PT recommended for home health. Continue supportive care, patient updated about disposition plan. Patient's son unable to accept patient at home as he has a full-time job and unable to take care of the patient. Discharge pending on placement issue, family caseworker following. Continue supportive care. 10/22/20: Continue PT OT as tolerated, pending acute rehab placement. Discussed with case management and RN at the bedside. Continue supportive care, taper steroid. 10/21/2020: Acute inpatient rehab arrangements being made. Patient will have d/c order with rx for amlodipine, valsartan, prednisone taper, and percocet. 10/20/2020: No acute overnight events. Patient today complaining of pain. Will adjust pain medication. Heme-onc evaluated patient. Recommended that patient get CT guided biopsy of lung mass, when this is feasible for patient. Patient will then need to undergo palliative chemotherapy and upper spine radiation as he heals from surgery. Recommends tapering of steroid dose. Consult placed to case management for acute rehab for patient. 10/19/2020: No acute overnight events. Per direction of neurosurgeon, drain is now discontinued and patient is out of c-collar. He is still experiencing some pain however states that pain control is adequate on my encounter. Awaiting oncology evaluation. 10/18/2020: No acute overnight events. Awaiting oncology to evaluate patient. 10/17/2020: No acute overnight events. Patient was working with physical therapy this morning. GISSEL drains noted to have some mild drainage about 1/4 full. No acute complaints otherwise other than pain which he is getting scheduled as needed pain medication for. 10/16: PEr nsgy ok to transfer to floor. No acute events overnight 10/15: Received 2 units plts preop, s/p C1-5 fusion, C3 laminectomy for removal of dorsal epidural tumor with nsgy, c-collar in place. CIWA protocol initiated overnight for agitation. 10/14: No acute events reported overnight, patient continues to refuse c-collar, scheduled for [facility] neurosurgery, 2 units plts preop. Subjective Date of service: 10/24/20 Principal diagnosis: Cord compression syn / Unstable C-spine; R. Lung Mass; HTN; Met. Acidosis Interval history: Patient seen and examined. Medical records and medication list reviewed. No acute event overnight noted by the RN. Patient denies any chest pain or difficulty breathing. Patient is tolerating diet. No acute issue overnight PT recommended home health Discussed plan of care at bedside with patient. Objective - Exam Narrative Exam: General appearance: Present: no acute distress, well-nourished, obese - EENT Eyes: Present: PERRL ENT: poor dentition - Neck Neck: No gross deformities noted. Patient has incision scar on posterior aspect of neck with overlying dressing. - Respiratory Respiratory effort: normal Respiratory: bilateral: diminished - Cardiovascular Rhythm: regular Heart Sounds: Present: S1 & S2. Absent: systolic murmur, diastolic murmur - Extremities Extremities: no ischemia, pulses intact, pulses symmetrical Peripheral Pulses: within normal limits - Abdominal General gastrointestinal: soft, non-tender, non-distended, normal bowel sounds - Integumentary Integumentary: Present: warm, dry - Psychiatric Psychiatric: cooperative - Neurologic Neurologic: moves all extremities - Constitutional Vitals: Vital Signs - 12hr 10/24/20 10/24/20 10/24/20 04:16 07:33 11:25 Temperature 97.7 F 98.9 F 99.0 F Pulse Rate 91 H 98 H 93 H Respiratory 18 18 16 Rate Blood Pressure 148/75 145/84 156/79 O2 Sat by Pulse 99 97 98 Oximetry 10/24/20 10/24/20 10/24/20 12:00 13:20 14:54 Temperature 98.7 F Pulse Rate 104 H Respiratory 16 16 Rate Blood Pressure 139/78 O2 Sat by Pulse 98 98 Oximetry - Labs CBC & Chem 7: 10/23/20 15:44 10/23/20 15:44 Labs: Abnormal lab results 10/23/20 10/23/20 10/23/20 Range/Units 15:44 15:44 17:47 WBC 15.0 H (4.5-11.0) K/mm3 BUN 25 H (9-20) mg/dL Creatinine 0.7 L (0.8-1.3) mg/dL POC Glucose 175 H (70-105) mg/dL 10/23/20 10/24/20 10/24/20 Range/Units 20:42 07:32 11:23 WBC (4.5-11.0) K/mm3 BUN (9-20) mg/dL Creatinine (0.8-1.3) mg/dL POC Glucose 128 H 111 H 141 H (70-105) mg/dL
--- NOTE | 2020-10-24 15:54 | Progress Note ---
Assessment and Plan Unstable cervical spine (lytic lesions) Metastatic disease Lung Mass (right lung) Hypertension Metabolic acidosis - Oncology consult placed - continue care as below otherwise; - continue RTC C-collar use - if needs lung biopsy, CT guided approach better re: Unstable c-spine issues - neurochecks per neurosurgeon - prn supplemental oxygen to keep O2 sats > 90% - prn bronchodilators (LAURI & LABA) with pulm hygiene per RT - systemic steroids re: cord edema per neurosurgery rec's - avoid nephrotoxins, renally dose all medications - continue mobility protocols to prevent pressure ulcers - PT/OT as tolerated - Wound care per RN/WCT - accuchecks with glycemic control per SSI for target blood glucose < 180 mg/dL - tobacco abstinence strongly counseled at the bedside - home oxygen evaluation at discharge - GI & VTE prophylaxis - Flu & pneumovax per protocol - Pulmonary out patient follow up for PFTs and optimization of respiratory status - continue other care per attending / other consultants - prn analgesia per pain score ... re-evaluate in am & prn Subjective Date of service: 10/24/20 Principal diagnosis: Cord compression syn / Unstable C-spine; R. Lung Mass; HTN; Met. Acidosis Interval history: Patient is seen today for: Unstable cervical spine; R. Lung Mass; Hypertension; Metabolic acidosis Seen and examined at bedside; 24hour events reviewed; nursing and respiratory care staff consulted; no adverse overnight events reported to me; resting in bed; Objective Vital Signs - 12hr 10/24/20 10/24/20 10/24/20 04:16 07:33 11:25 Temperature 97.7 F 98.9 F 99.0 F Pulse Rate 91 H 98 H 93 H Respiratory 18 18 16 Rate Blood Pressure 148/75 145/84 156/79 O2 Sat by Pulse 99 97 98 Oximetry 10/24/20 10/24/20 10/24/20 12:00 13:20 14:54 Temperature 98.7 F Pulse Rate 104 H Respiratory 16 16 Rate Blood Pressure 139/78 O2 Sat by Pulse 98 98 Oximetry Constitutional: no acute distress Eyes: non-icteric ENT: oropharynx moist Neck: supple, no lymphadenopathy, no JVD, other (C-collar in place) Effort: normal Ascultation: Bilateral: clear, diminished breath sounds Percussion: Bilateral: not dull Cardiovascular: regular rate and rhythm Gastrointestinal: normoactive bowel sounds, soft, non-tender, non-distended Integumentary: normal Extremities: no cyanosis, no edema, pulses normal, no ischemia or petechiae Neurologic: normal mental status, pupils equal and round, CN II-XII normal, other (improved upper extremity power) Psychiatric: mood appropriate, affect normal CBC and BMP: 10/23/20 15:44 10/23/20 15:44 ABG, PT/INR, D-dimer: ABG ABG pH 7.472 (7.320-7.450) H 10/23/20 10:00 POC ABG pCO2 37.9 mmHg (32.0-48.0) 10/23/20 10:00 POC ABG pO2 70.2 mmHg (83-108) L 10/23/20 10:00 POC ABG HCO3 27.1 10/23/20 10:00 ABG O2 Saturation Not Reportable 10/23/20 10:00 PT/INR, D-dimer PT 13.9 Sec. (12.2-14.9) 10/14/20 16:28 INR 1.01 (0.87-1.13) 10/14/20 16:28 Abnormal lab findings: Abnormal Labs 10/12/20 10/12/20 10/13/20 08:37 08:37 03:54 WBC 11.7 H MCHC 35 H Lymph % (Auto) 13.0 L 8.8 L Lymph # (Auto) 1.0 L Seg Neutrophils % 79.1 H 87.0 H Seg Neutrophils # 10.2 H ABG pH POC ABG pO2 ABG Sodium ABG Glucose Carbon Dioxide 21 L BUN Creatinine 0.6 L Glucose 105 H POC Glucose Calcium Total Creatine Kinase 192 H Arterial Blood Glucose 10/13/20 10/13/20 10/15/20 03:54 11:40 07:03 WBC 14.7 H MCHC Lymph % (Auto) Lymph # (Auto) Seg Neutrophils % Seg Neutrophils # ABG pH POC ABG pO2 ABG Sodium ABG Glucose Carbon Dioxide 18 L BUN 23 H Creatinine Glucose 118 H POC Glucose 153 H Calcium Total Creatine Kinase Arterial Blood Glucose 10/15/20 10/15/20 10/15/20 07:03 16:34 22:26 WBC MCHC Lymph % (Auto) Lymph # (Auto) Seg Neutrophils % Seg Neutrophils # ABG pH POC ABG pO2 ABG Sodium ABG Glucose Carbon Dioxide BUN 29 H Creatinine 0.7 L Glucose 115 H POC Glucose 107 H 106 H Calcium Total Creatine Kinase Arterial Blood Glucose 10/16/20 10/16/20 10/16/20 05:30 05:30 07:44 WBC 17.6 H MCHC Lymph % (Auto) Lymph # (Auto) Seg Neutrophils % Seg Neutrophils # ABG pH POC ABG pO2 ABG Sodium ABG Glucose Carbon Dioxide BUN 22 H Creatinine 0.7 L Glucose 115 H POC Glucose 123 H Calcium 8.3 L Total Creatine Kinase Arterial Blood Glucose 10/16/20 10/17/20 10/17/20 11:43 05:13 07:13 WBC 16.2 H MCHC Lymph % (Auto) Lymph # (Auto) Seg Neutrophils % Seg Neutrophils # ABG pH POC ABG pO2 ABG Sodium ABG Glucose Carbon Dioxide BUN Creatinine Glucose POC Glucose 118 H 118 H Calcium Total Creatine Kinase Arterial Blood Glucose 10/17/20 10/17/20 10/17/20 11:53 16:18 21:10 WBC MCHC Lymph % (Auto) Lymph # (Auto) Seg Neutrophils % Seg Neutrophils # ABG pH POC ABG pO2 ABG Sodium ABG Glucose Carbon Dioxide BUN Creatinine Glucose POC Glucose 116 H 137 H 115 H Calcium Total Creatine Kinase Arterial Blood Glucose 10/18/20 10/18/20 10/18/20 07:43 11:14 16:42 WBC MCHC Lymph % (Auto) Lymph # (Auto) Seg Neutrophils % Seg Neutrophils # ABG pH POC ABG pO2 ABG Sodium ABG Glucose Carbon Dioxide BUN Creatinine Glucose POC Glucose 130 H 150 H 165 H Calcium Total Creatine Kinase Arterial Blood Glucose 10/18/20 10/19/20 10/19/20 21:26 08:03 11:15 WBC MCHC Lymph % (Auto) Lymph # (Auto) Seg Neutrophils % Seg Neutrophils # ABG pH POC ABG pO2 ABG Sodium ABG Glucose Carbon Dioxide BUN Creatinine Glucose POC Glucose 181 H 142 H 130 H Calcium Total Creatine Kinase Arterial Blood Glucose 10/19/20 10/19/20 10/20/20 15:53 21:43 07:46 WBC MCHC Lymph % (Auto) Lymph # (Auto) Seg Neutrophils % Seg Neutrophils # ABG pH POC ABG pO2 ABG Sodium ABG Glucose Carbon Dioxide BUN Creatinine Glucose POC Glucose 134 H 144 H 125 H Calcium Total Creatine Kinase Arterial Blood Glucose 10/20/20 10/20/20 10/20/20 11:22 16:02 21:56 WBC MCHC Lymph % (Auto) Lymph # (Auto) Seg Neutrophils % Seg Neutrophils # ABG pH POC ABG pO2 ABG Sodium ABG Glucose Carbon Dioxide BUN Creatinine Glucose POC Glucose 177 H 107 H 116 H Calcium Total Creatine Kinase Arterial Blood Glucose 10/21/20 10/21/20 10/21/20 07:12 11:20 16:09 WBC MCHC Lymph % (Auto) Lymph # (Auto) Seg Neutrophils % Seg Neutrophils # ABG pH POC ABG pO2 ABG Sodium ABG Glucose Carbon Dioxide BUN Creatinine Glucose POC Glucose 125 H 119 H 146 H Calcium Total Creatine Kinase Arterial Blood Glucose 10/21/20 10/22/20 10/22/20 21:40 07:12 11:08 WBC MCHC Lymph % (Auto) Lymph # (Auto) Seg Neutrophils % Seg Neutrophils # ABG pH POC ABG pO2 ABG Sodium ABG Glucose Carbon Dioxide BUN Creatinine Glucose POC Glucose 143 H 111 H 112 H Calcium Total Creatine Kinase Arterial Blood Glucose 10/23/20 10/23/20 10/23/20 10:00 11:42 15:44 WBC 15.0 H MCHC Lymph % (Auto) Lymph # (Auto) Seg Neutrophils % Seg Neutrophils # ABG pH 7.472 H POC ABG pO2 70.2 L ABG Sodium 134.9 L ABG Glucose 104 H Carbon Dioxide BUN Creatinine Glucose POC Glucose 122 H Calcium Total Creatine Kinase Arterial Blood Glucose 104 H 10/23/20 10/23/20 10/23/20 15:44 17:47 20:42 WBC MCHC Lymph % (Auto) Lymph # (Auto) Seg Neutrophils % Seg Neutrophils # ABG pH POC ABG pO2 ABG Sodium ABG Glucose Carbon Dioxide BUN 25 H Creatinine 0.7 L Glucose POC Glucose 175 H 128 H Calcium Total Creatine Kinase Arterial Blood Glucose 10/24/20 10/24/20 10/24/20 07:32 11:23 15:50 WBC MCHC Lymph % (Auto) Lymph # (Auto) Seg Neutrophils % Seg Neutrophils # ABG pH POC ABG pO2 ABG Sodium ABG Glucose Carbon Dioxide BUN Creatinine Glucose POC Glucose 111 H 141 H 129 H Calcium Total Creatine Kinase Arterial Blood Glucose Allied health notes reviewed: nursing
[2020-10-24] MEDS: ENOXAPARIN 40 MG/0.4 ML INJ SUB-Q SCH (22:01)
[2020-10-25] MEDS: oxyCODONE /ACETAMINOPHEN 5-325MG TAB PO PRN ×3 (00:47→11:41)
[2020-10-25] MEDS: HYDROmorphone 1 MG/1 ML INJ IV PRN ×2 (03:58→09:36)
[2020-10-25 08:51] VITALS: BP 131/83
[2020-10-25] MEDS: methylPREDNISolone Sod Succinate 40 MG/1 ML INJ IV SCH (09:43)
[2020-10-25] MEDS: VALSARTAN 160MG TAB PO SCH (09:49)
[2020-10-25] MEDS: amLODIPine 10 MG TAB PO SCH (09:49)
[2020-10-25] MEDS: DOCUSATE SODIUM 100 MG CAP PO SCH (09:49)
[2020-10-25] MEDS: FAMOTIDINE 20 MG TAB PO SCH (09:49)
--- NOTE | 2020-10-25 14:41 | Progress Note ---
Assessment and Plan Unstable cervical spine (lytic lesions) Metastatic disease Lung Mass (right lung) Hypertension Metabolic acidosis - Oncology consult placed - continue care as below otherwise; - continue RTC C-collar use - if needs lung biopsy, CT guided approach better re: Unstable c-spine issues - neurochecks per neurosurgeon - prn supplemental oxygen to keep O2 sats > 90% - prn bronchodilators (LAURI & LABA) with pulm hygiene per RT - systemic steroids re: cord edema per neurosurgery rec's - avoid nephrotoxins, renally dose all medications - continue mobility protocols to prevent pressure ulcers - PT/OT as tolerated - Wound care per RN/WCT - accuchecks with glycemic control per SSI for target blood glucose < 180 mg/dL - tobacco abstinence strongly counseled at the bedside - home oxygen evaluation at discharge - GI & VTE prophylaxis - Flu & pneumovax per protocol - Pulmonary out patient follow up for PFTs and optimization of respiratory status - continue other care per attending / other consultants - prn analgesia per pain score ... re-evaluate in am & prn Subjective Date of service: 10/25/20 Principal diagnosis: Cord compression syn / Unstable C-spine; R. Lung Mass; HTN; Met. Acidosis Interval history: Patient is seen today for: Unstable cervical spine; R. Lung Mass; Hypertension; Metabolic acidosis Seen and examined at bedside; 24hour events reviewed; nursing and respiratory care staff consulted; no adverse overnight events reported to me; resting in bed; Objective Vital Signs - 12hr 10/25/20 10/25/20 10/25/20 03:58 04:28 06:28 Temperature 98.8 F Pulse Rate 87 Respiratory 17 17 18 Rate Blood Pressure O2 Sat by Pulse 98 Oximetry 10/25/20 10/25/20 07:28 08:12 Temperature 98.3 F Pulse Rate 91 H Respiratory 17 18 Rate Blood Pressure 131/83 O2 Sat by Pulse 97 Oximetry Constitutional: no acute distress Eyes: non-icteric ENT: oropharynx moist Neck: supple, no lymphadenopathy, no JVD, other (C-collar in place) Effort: normal Ascultation: Bilateral: clear, diminished breath sounds Percussion: Bilateral: not dull Cardiovascular: regular rate and rhythm Gastrointestinal: normoactive bowel sounds, soft, non-tender, non-distended Integumentary: normal Extremities: no cyanosis, no edema, pulses normal, no ischemia or petechiae Neurologic: normal mental status, pupils equal and round, CN II-XII normal, other (improved upper extremity power) Psychiatric: mood appropriate, affect normal CBC and BMP: 10/23/20 15:44 10/23/20 15:44 ABG, PT/INR, D-dimer: ABG ABG pH 7.472 (7.320-7.450) H 10/23/20 10:00 POC ABG pCO2 37.9 mmHg (32.0-48.0) 10/23/20 10:00 POC ABG pO2 70.2 mmHg (83-108) L 10/23/20 10:00 POC ABG HCO3 27.1 10/23/20 10:00 ABG O2 Saturation Not Reportable 10/23/20 10:00 PT/INR, D-dimer PT 13.9 Sec. (12.2-14.9) 10/14/20 16:28 INR 1.01 (0.87-1.13) 10/14/20 16:28 Abnormal lab findings: Abnormal Labs 10/12/20 10/12/20 10/13/20 08:37 08:37 03:54 WBC 11.7 H MCHC 35 H Lymph % (Auto) 13.0 L 8.8 L Lymph # (Auto) 1.0 L Seg Neutrophils % 79.1 H 87.0 H Seg Neutrophils # 10.2 H ABG pH POC ABG pO2 ABG Sodium ABG Glucose Carbon Dioxide 21 L BUN Creatinine 0.6 L Glucose 105 H POC Glucose Calcium Total Creatine Kinase 192 H Arterial Blood Glucose 10/13/20 10/13/20 10/15/20 03:54 11:40 07:03 WBC 14.7 H MCHC Lymph % (Auto) Lymph # (Auto) Seg Neutrophils % Seg Neutrophils # ABG pH POC ABG pO2 ABG Sodium ABG Glucose Carbon Dioxide 18 L BUN 23 H Creatinine Glucose 118 H POC Glucose 153 H Calcium Total Creatine Kinase Arterial Blood Glucose 10/15/20 10/15/20 10/15/20 07:03 16:34 22:26 WBC MCHC Lymph % (Auto) Lymph # (Auto) Seg Neutrophils % Seg Neutrophils # ABG pH POC ABG pO2 ABG Sodium ABG Glucose Carbon Dioxide BUN 29 H Creatinine 0.7 L Glucose 115 H POC Glucose 107 H 106 H Calcium Total Creatine Kinase Arterial Blood Glucose 10/16/20 10/16/20 10/16/20 05:30 05:30 07:44 WBC 17.6 H MCHC Lymph % (Auto) Lymph # (Auto) Seg Neutrophils % Seg Neutrophils # ABG pH POC ABG pO2 ABG Sodium ABG Glucose Carbon Dioxide BUN 22 H Creatinine 0.7 L Glucose 115 H POC Glucose 123 H Calcium 8.3 L Total Creatine Kinase Arterial Blood Glucose 10/16/20 10/17/20 10/17/20 11:43 05:13 07:13 WBC 16.2 H MCHC Lymph % (Auto) Lymph # (Auto) Seg Neutrophils % Seg Neutrophils # ABG pH POC ABG pO2 ABG Sodium ABG Glucose Carbon Dioxide BUN Creatinine Glucose POC Glucose 118 H 118 H Calcium Total Creatine Kinase Arterial Blood Glucose 10/17/20 10/17/20 10/17/20 11:53 16:18 21:10 WBC MCHC Lymph % (Auto) Lymph # (Auto) Seg Neutrophils % Seg Neutrophils # ABG pH POC ABG pO2 ABG Sodium ABG Glucose Carbon Dioxide BUN Creatinine Glucose POC Glucose 116 H 137 H 115 H Calcium Total Creatine Kinase Arterial Blood Glucose 10/18/20 10/18/20 10/18/20 07:43 11:14 16:42 WBC MCHC Lymph % (Auto) Lymph # (Auto) Seg Neutrophils % Seg Neutrophils # ABG pH POC ABG pO2 ABG Sodium ABG Glucose Carbon Dioxide BUN Creatinine Glucose POC Glucose 130 H 150 H 165 H Calcium Total Creatine Kinase Arterial Blood Glucose 10/18/20 10/19/20 10/19/20 21:26 08:03 11:15 WBC MCHC Lymph % (Auto) Lymph # (Auto) Seg Neutrophils % Seg Neutrophils # ABG pH POC ABG pO2 ABG Sodium ABG Glucose Carbon Dioxide BUN Creatinine Glucose POC Glucose 181 H 142 H 130 H Calcium Total Creatine Kinase Arterial Blood Glucose 10/19/20 10/19/20 10/20/20 15:53 21:43 07:46 WBC MCHC Lymph % (Auto) Lymph # (Auto) Seg Neutrophils % Seg Neutrophils # ABG pH POC ABG pO2 ABG Sodium ABG Glucose Carbon Dioxide BUN Creatinine Glucose POC Glucose 134 H 144 H 125 H Calcium Total Creatine Kinase Arterial Blood Glucose 10/20/20 10/20/20 10/20/20 11:22 16:02 21:56 WBC MCHC Lymph % (Auto) Lymph # (Auto) Seg Neutrophils % Seg Neutrophils # ABG pH POC ABG pO2 ABG Sodium ABG Glucose Carbon Dioxide BUN Creatinine Glucose POC Glucose 177 H 107 H 116 H Calcium Total Creatine Kinase Arterial Blood Glucose 10/21/20 10/21/20 10/21/20 07:12 11:20 16:09 WBC MCHC Lymph % (Auto) Lymph # (Auto) Seg Neutrophils % Seg Neutrophils # ABG pH POC ABG pO2 ABG Sodium ABG Glucose Carbon Dioxide BUN Creatinine Glucose POC Glucose 125 H 119 H 146 H Calcium Total Creatine Kinase Arterial Blood Glucose 10/21/20 10/22/20 10/22/20 21:40 07:12 11:08 WBC MCHC Lymph % (Auto) Lymph # (Auto) Seg Neutrophils % Seg Neutrophils # ABG pH POC ABG pO2 ABG Sodium ABG Glucose Carbon Dioxide BUN Creatinine Glucose POC Glucose 143 H 111 H 112 H Calcium Total Creatine Kinase Arterial Blood Glucose 10/23/20 10/23/20 10/23/20 10:00 11:42 15:44 WBC 15.0 H MCHC Lymph % (Auto) Lymph # (Auto) Seg Neutrophils % Seg Neutrophils # ABG pH 7.472 H POC ABG pO2 70.2 L ABG Sodium 134.9 L ABG Glucose 104 H Carbon Dioxide BUN Creatinine Glucose POC Glucose 122 H Calcium Total Creatine Kinase Arterial Blood Glucose 104 H 10/23/20 10/23/20 10/23/20 15:44 17:47 20:42 WBC MCHC Lymph % (Auto) Lymph # (Auto) Seg Neutrophils % Seg Neutrophils # ABG pH POC ABG pO2 ABG Sodium ABG Glucose Carbon Dioxide BUN 25 H Creatinine 0.7 L Glucose POC Glucose 175 H 128 H Calcium Total Creatine Kinase Arterial Blood Glucose 10/24/20 10/24/20 10/24/20 07:32 11:23 15:50 WBC MCHC Lymph % (Auto) Lymph # (Auto) Seg Neutrophils % Seg Neutrophils # ABG pH POC ABG pO2 ABG Sodium ABG Glucose Carbon Dioxide BUN Creatinine Glucose POC Glucose 111 H 141 H 129 H Calcium Total Creatine Kinase Arterial Blood Glucose 10/24/20 10/25/20 21:42 08:12 WBC MCHC Lymph % (Auto) Lymph # (Auto) Seg Neutrophils % Seg Neutrophils # ABG pH POC ABG pO2 ABG Sodium ABG Glucose Carbon Dioxide BUN Creatinine Glucose POC Glucose 107 H 110 H Calcium Total Creatine Kinase Arterial Blood Glucose Allied health notes reviewed: nursing
[2020-10-29 08:49] LABS: Hemoglobin A2 Prime SEE SCANNED RESULTS
[2020-10-29 08:50] LABS: Hemoglobin Barts SEE SCANNED RESULTS; Hemoglobin E SEE SCANNED RESULTS; Hemoglobin G SEE SCANNED RESULTS; Hemoglobin Lepore SEE SCANNED RESULTS; Hemoglobin O-Arab SEE SCANNED RESULTS; IEF Confirm SEE SCANNED RESULTS; Interpretation SEE SCANNED RESULTS; Sickle Solubility Test SEE SCANNED RESULTS
== END 2020-10-25 12:00 | disposition home health service (06) | DRG 472 ==
LOC: EDBD → ED 08:09 → CC1 13:18 → 3B-SURG 10-16 18:27
PROVIDERS: ADMIT Internal Medicine; ATTEND Internal Medicine
PROC: 0RG20J1 Fusion of 2 or more Cervical Vertebral Joints with Synthetic Substitute, Posterior Approach, Posterior Column, Open Approach (ICD-10-PCS; principal; 2020-10-15)
PROC: 00NW0ZZ Release Cervical Spinal Cord, Open Approach (ICD-10-PCS; 2020-10-15)
PROC: 00BW0ZZ Excision of Cervical Spinal Cord, Open Approach (ICD-10-PCS; 2020-10-15)
PROC: 30233R1 Transfusion of Nonautologous Platelets into Peripheral Vein, Percutaneous Approach (ICD-10-PCS; 2020-10-15)
PROC: 4A033R1 Measurement of Arterial Saturation, Peripheral, Percutaneous Approach (ICD-10-PCS; 2020-10-23)
DX: C79.51 Secondary malignant neoplasm of bone (principal); G95.20 Unspecified cord compression; C34.90 Malignant neoplasm of unspecified part of unspecified bronchus or lung; E87.2 Acidosis; I10 Essential (primary) hypertension; M48.02 Spinal stenosis, cervical region; I25.10 Atherosclerotic heart disease of native coronary artery without angina pectoris; D72.829 Elevated white blood cell count, unspecified; Z82.49 Family history of ischemic heart disease and other diseases of the circulatory system; Z79.899 Other long term (current) drug therapy
CPT/HCPCS: 36415; 36600; 36620; 70450; 70496; 70498; 70551; 71260; 72040; 72125; 72128; 72131; 72141; 72157; 72158; 74177; 80048; 80053; 82550; 82805; 82962; 83735; 85025; 85027; 85610; 85730; 86850; 86900; 86901; 88307; 88341; 88342; 93005; 94640; 94760; 96374; G0378; A4649; A9270-GY; A9575; C1713; J0330; J0360; J0690; J1100; J1170; J1580; J1650; J1815; J2060; J2370; J2405; J2704; J2920; J3010; J3370; J7030; L8699; P9035; Q9967

== ENCOUNTER 2020-12-31 06:18 | Emergency (ER) | payer MEDICARE ==
--- NOTE | 2020-12-31 07:04 | Emergency Department Report ---
ED Shortness of Breath HPI - General Chief Complaint: Dyspnea/Respdistress Stated Complaint: DIFFICULTY BREATHING Time Seen by Provider: 12/31/20 06:59 Source: patient, EMS Mode of arrival: Stretcher Limitations: No Limitations - History of Present Illness Initial Comments: Patient presents with shortness of breath. He states that he feels panicky. He was wheezing per EMS. They administered a breathing treatment. He states that he feels somewhat better. He is known to have a lung mass. He is supposed to start treatment on the first of the month. Patient has no swelling in the feet. There is no cough or congestion. There is no chest pain. There is no vomiting or diarrhea. He states that he does feel better. He is also requesting a pain pill because he states it is time for his regular pain medication. - Related Data Home Medications Medication Instructions Recorded Confirmed Last Taken Meloxicam [Mobic] 15 mg PO QDAY 10/12/20 10/12/20 Unknown Tizanidine HCl 1 tab PO QHS 10/12/20 10/12/20 Unknown traZODone [Desyrel] 50 mg PO QHS 10/12/20 10/12/20 Unknown Previous Rx's Medication Instructions Recorded Last Taken Type AtorvaSTATin [Lipitor] 40 mg PO QHS 30 Days #30 tablet 10/21/20 Unknown Rx Valsartan [Diovan] 160 mg PO DAILY 30 Days #30 tablet 10/21/20 Unknown Rx oxyCODONE /ACETAMINOPHEN [Percocet 2 tab PO Q4H PRN 3 Days #36 tablet 10/21/20 Unknown Rx 5/325 mg] predniSONE [Deltasone] 5 mg PO .TAPER #48 tab 10/21/20 Unknown Rx Albuterol Sulfate [Proair 90 mcg IH 4XD #1 [email or web address] 12/31/20 Unknown Rx Respiclick] Allergies Allergy/AdvReac Type Severity Reaction Status Date / Time No Known Allergies Allergy Unverified 01/27/19 03:48 ED Review of Systems ROS: Stated complaint: DIFFICULTY BREATHING Other details as noted in HPI Comment: All other systems reviewed and negative Constitutional: denies: fever Eyes: denies: eye pain ENT: denies: throat pain Respiratory: denies: cough Cardiovascular: denies: chest pain Endocrine: denies: unexplained weight loss Gastrointestinal: denies: abdominal pain Genitourinary: denies: dysuria Musculoskeletal: denies: back pain Skin: denies: rash Neurological: denies: headache Hematological/Lymphatic: denies: easy bruising ED Past Medical Hx - Past Medical History Hx Hypertension: Yes Hx Asthma: Yes (Lung ca mets to neck) Hx Tuberculosis: Yes (1984) Hx HIV: No - Family History Family history: hypertension - Social History Smoking Status: Current Every Day Smoker - Medications Home Medications: Home Medications Medication Instructions Recorded Confirmed Last Taken Type Meloxicam [Mobic] 15 mg PO QDAY 10/12/20 10/12/20 Unknown History Tizanidine HCl 1 tab PO QHS 10/12/20 10/12/20 Unknown History traZODone [Desyrel] 50 mg PO QHS 10/12/20 10/12/20 Unknown History AtorvaSTATin [Lipitor] 40 mg PO QHS 30 Days #30 tablet 10/21/20 Unknown Rx Valsartan [Diovan] 160 mg PO DAILY 30 Days #30 tablet 10/21/20 Unknown Rx oxyCODONE /ACETAMINOPHEN [Percocet 2 tab PO Q4H PRN 3 Days #36 tablet 10/21/20 Unknown Rx 5/325 mg] predniSONE [Deltasone] 5 mg PO .TAPER #48 tab 10/21/20 Unknown Rx Albuterol Sulfate [Proair 90 mcg IH 4XD #1 aer.[email or web address] 12/31/20 Unknown Rx Respiclick] ED Physical Exam - General Limitations: No Limitations, Other (Pulse ox is noted and normal.) General appearance: alert, in no apparent distress - Head Head exam: Present: atraumatic, normocephalic - Eye Eye exam: Present: normal appearance, EOMI. Absent: scleral icterus - ENT ENT exam: Present: normal exam, normal orophraynx - Neck Neck exam: Present: normal inspection. Absent: tenderness - Respiratory Respiratory exam: Present: normal lung sounds bilaterally. Absent: respiratory distress, wheezes - Cardiovascular Cardiovascular Exam: Present: regular rate, normal rhythm - GI/Abdominal GI/Abdominal exam: Present: soft. Absent: tenderness - Extremities Exam Extremities exam: Present: normal capillary refill. Absent: pedal edema, calf tenderness - Back Exam Back exam: Absent: CVA tenderness (R), CVA tenderness (L) - Neurological Exam Neurological exam: Present: alert, oriented X3, CN II-XII intact. Absent: motor sensory deficit - Psychiatric Psychiatric exam: Present: normal affect, normal mood - Skin Skin exam: Present: warm, dry ED Course Vital Signs 12/31/20 12/31/20 06:47 06:51 Pulse Rate 80 Respiratory 16 Rate Blood Pressure 153/62 [Left] O2 Sat by Pulse 97 97 Oximetry - Reevaluation(s) Reevaluation #1: 12/31/20 07:04 DuoNeb was ordered. Chest x-ray was ordered. Old records reviewed. Reevaluation #2: 12/31/20 08:38 X-ray was noted. ED Medical Decision Making - Radiology Data Radiology results: report reviewed - Medical Decision Making Patient presents with shortness of breath. Etiology for this is not known. He does have a known lung mass. He does not appear to be septic or toxic. There is no evidence of hypoxia. He is in no respiratory distress. He was feeling better after albuterol. He can be treated with albuterol at home. He does not have pains or swelling in the feet or ankles. He does not have unilateral calf tenderness. He has no hypoxia. I do not believe clinically this represents pulmonary embolism. Patient has had no evidence of dysrhythmia. I believe that the dyspnea is more related to lung disease as opposed to heart disease. He was wheezing and seemed to improve with albuterol. Critical Care Time: No Critical care attestation.: If time is entered above; I have spent that time in minutes in the direct care of this critically ill patient, excluding procedure time. ED Disposition Clinical Impression: Shortness of breath Disposition: 01 HOME / SELF CARE / HOMELESS Is pt being admited?: No Condition: Stable Instructions: Shortness of Breath, Adult, [id number] Additional Instructions: See your regular doctor about your lung mass. Continue home medication. Return for problems. Follow-up with your regular doctor for recheck. Prescriptions: Albuterol Sulfate [Proair Respiclick] 90 mcg IH 4XD #1 magdalena Referrals: PRIMARY CARE, [Primary Care Provider] - 3-5 Days
[2020-12-31] MEDS ORDERED: HYDROcodone/ACETAMINOPHEN 10-325MG TAB PO ONE (07:05)
[2020-12-31] MEDS ORDERED: IPRATROPIUM/ALBUTEROL SULFATE 3 ML AMPUL.NEB IH ONE (07:05)
--- NOTE | 2020-12-31 08:01 | XRay Report ---
CHEST 2 VIEWS INDICATION: dyspnea. COMPARISON: CT chest 10/12/2020 FINDINGS: Support devices: None. Heart: Within normal limits. Lungs/pleura: An approximate 4.1 x 2.6 cm masslike lesion is again noted in the right upper lobe with no overwhelming change since the previous CT. The lungs are clear otherwise. No pleural effusion or pneumothorax. No pneumothorax. Additional findings: None. IMPRESSION: Persistent right upper lobe masslike lesion concerning for neoplasm. No acute process. Signer Name: Khanh Orozco Jr, MD Signed: 12/31/2020 7:57 AM Workstation Name: [id number]
[2020-12-31 09:10] VITALS: BP 166/81
== END 2020-12-31 09:00 | disposition home or self-care (01) ==
LOC: ED 06:18
DX: R06.02 Shortness of breath (principal); I10 Essential (primary) hypertension; J45.909 Unspecified asthma, uncomplicated; A15.9 Respiratory tuberculosis unspecified; F17.200 Nicotine dependence, unspecified, uncomplicated
CPT/HCPCS: 71046; 99283